=== PATIENT | male | born 1955 | race Caucasian/White ===

== ENCOUNTER 2016-06-21 11:22 | Emergency (ER) | payer MEDICAID ==
[2016-06-21] MEDS ORDERED: Sodium Chloride 0.9% 10 ML Syringe FLUSH PRN (11:47)
[2016-06-21] MEDS ORDERED: HYDROmorphone 1 MG/ML Syringe IVPUSH ONE (11:48)
[2016-06-21] MEDS ORDERED: Ondansetron 4 MG/2 ML SDV IVPUSH ONE (11:48)
[2016-06-21] MEDS ORDERED: LORazepam 2 MG/ML MDV IVPUSH ONE (11:48)
--- NOTE | 2016-06-21 13:18 | EDM.PDOC ---
ED HPI HEADACHE COMPLAINT - General Chief Complaint: Headache Stated Complaint: MIGRAINE & VOMITING Time Seen by Provider: 06/21/16 11:40 Source: Reports: Patient, Family History Limitations: Reports: No limitations - History of Present Illness INITIAL COMMENTS - FREE TEXT/NARRATIVE: 60-year-old male discharged a few hours ago with a headache returns because he slept for a few hours woke up and the headache is still present with nausea and vomiting. No peripheral paresthesias or numbness. Some photophobia. Headache is very similar to some of his bad migraines in the past. It is typical for him to return to the emergency room several times when he gets a bad headache. Location: Reports: frontal Quality: Reports: pounding Severity: Reports: severe Associated Symptoms: Reports: photophobia, other (Nausea and vomiting) - Related Data Allergies/ADRs: Allergies Allergy/AdvReac Type Severity Reaction Status Date / Time iodine Allergy Severe Anaphylactic Verified 04/30/16 19:53 Shock shellfish derived Allergy Severe Anaphylactic Verified 04/30/16 19:53 Shock tomato Allergy Hives Uncoded 10/22/15 20:08 Home Meds: Home Meds Amitriptyline [Elavil] 50 mg PO BEDTIME 03/08/13 [History] traMADol HCl [Rybix ODT] 100 mg PO Q6H PRN 03/08/13 [History] Celecoxib [CeleBREX] 100 mg PO BEDTIME 05/23/14 [History] HYDROmorphone [Dilaudid] 2 mg PO Q6HR PRN 09/13/14 [History] Ondansetron [Zofran ODT] 8 mg PO Q6H PRN 09/13/14 [History] Rizatriptan Benzoate [Rizatriptan] 5 mg PO ASDIRECTED PRN 09/13/14 [History] Carvedilol [Carvedilol] 6.25 mg PO BID 10/16/15 [History] Lisinopril [Lisinopril] 10 mg PO DAILY 10/16/15 [History] Past Medical History HEENT History: Reports: Impaired vision Cardiovascular History: Reports: CAD, Hypertension, [place] Musculoskeletal History: Reports: Back pain, chronic, Fracture, Osteoarthritis, Other (see below) Other Musculoskeletal History: Yoni scoliosis Neurological History: Reports: Migraines Psychiatric History: Reports: Anxiety, Depression Dermatologic History: Reports: Cellulitis - Infectious Disease History Infectious Disease History: Reports: Chicken pox - Past Surgical History HEENT Surgical History: Reports: Oral surgery, Tonsillectomy GI Surgical History: Reports: Colonoscopy, EGD Musculoskeletal Surgical History: Reports: Other (see below) Other Musculoskeletal Surgeries/Procedures:: ulnar nerve transplant left. bone biopsy right index finger Social & Family History - Tobacco Use Smoking Status *Q: Never Smoker Second Hand Smoke Exposure: No - Caffeine Use Caffeine Use: Reports: Tea - Alcohol Use Days Per Week of Alcohol Use: 0 - Recreational Drug Use Recreational Drug Use: No - Living Situation & Occupation Living situation: Reports: , with spouse Occupation: disabled ED ROS GENERAL - Review of Systems Review Of Systems: See Below Constitutional: Denies: fever, chills HEENT: Denies: Throat pain Respiratory: Denies: shortness of breath, cough Cardiovascular: Denies: Chest pain GI/Abdominal: Reports: Nausea, Vomiting Skin: Reports: no symptoms Neurological: Reports: dizziness, headache - Physical Exam Exam: See Below Exam Limited By: No limitations General Appearance: alert, moderate distress Eye Exam: bilateral eye: EOMI, PERRL Respiratory/Chest: no respiratory distress Neuro Exam (Abbreviated): alert, no motor/sensory deficits Psychiatric: anxious Skin Exam: Warm, Dry Course - Vital Signs Last Recorded V/S: Last Vital Signs Temp 96.3 F 06/21/16 11:28 Pulse 66 06/21/16 16:46 Resp 15 06/21/16 15:46 BP 151/89 H 06/21/16 16:46 Pulse Ox 97 06/21/16 15:46 - Orders/Labs/Meds Orders: Active Orders 24 hr Category Date Time Status Saline Lock Insert [OM.PC] Routine Oth 06/21/16 11:47 Ordered Meds: Medications Discontinued Medications Generic Name Dose Route Start Last Admin Trade Name Freq PRN Reason Stop Dose Admin Hydromorphone HCl 1 mg 06/21/16 11:48 06/21/16 12:22 Dilaudid IVPUSH 06/21/16 11:49 1 mg ONETIME ONE Administration Ketorolac Tromethamine 30 mg 06/21/16 17:53 06/21/16 18:02 Toradol IVPUSH 06/21/16 17:54 30 mg ONETIME ONE Administration Lorazepam 1 mg 06/21/16 11:48 06/21/16 12:14 Ativan IVPUSH 06/21/16 11:49 1 mg ONETIME ONE Administration Ondansetron HCl 4 mg 06/21/16 11:48 06/21/16 12:09 Zofran IVPUSH 06/21/16 11:49 4 mg ONETIME ONE Administration Sodium Chloride 10 ml 06/21/16 11:47 06/21/16 18:03 Saline Flush FLUSH 10 ml ASDIRECTED PRN Administration Keep Vein Open - Re-Assessments/Exams Free Text/Narrative Re-Assessment/Exam: 06/21/16 13:18 An IV was restarted, the patient was given 4 mg of Zofran, 1 mg of Dilaudid, and 1 mg of Ativan IV. 06/21/16 18:16 Patient slept soundly for over 2 hours, when he awoke his nausea was gone but still had some mild tension in his head. He was given 30 mg of Toradol IV and discharged with instructions to return if worsening or concerns. Departure - Departure Time of Disposition: 18:34 Disposition: Home, Self-Care 01 Condition: good Clinical Impression: Migraine Instructions: Migraine Headache, [id number] Referrals: Roman Metzger MD [Primary Care Provider] - Forms: ED Department Discharge Care Plan Goals: Resume regular medications, increase activity as tolerated and return if worsening or concerns. - My Orders Last 24 Hours: My Active Orders 06/21/16 11:47 Saline Lock Insert [OM.PC] Routine - Assessment/Plan Last 24 Hours: My Active Orders 06/21/16 11:47 Saline Lock Insert [OM.PC] Routine
[2016-06-21 17:20] VITALS: BP 151/89
[2016-06-21] MEDS ORDERED: Ketorolac 30 MG/ML SDV IVPUSH ONE (17:53)
== END 2016-06-21 18:34 | disposition home or self-care (01) ==
LOC: JP.ED 11:22
DX: G43.909 Migraine, unspecified, not intractable, without status migrainosus (principal); Z91.018 Allergy to other foods; Z79.899 Other long term (current) drug therapy
CPT/HCPCS: 96374; 96375; 99284; J1170; J1885; J2060; J2405; J7050

== ENCOUNTER 2016-09-07 15:54 | Emergency (ER) | payer MEDICAID ==
[2016-09-07] MEDS ORDERED: Bupivacaine 0.5% 30 ML SDV INFILT ONE (17:33)
[2016-09-07 17:47] VITALS: BP 130/89
[2016-09-07] MEDS ORDERED: Bacitracin Oint 1 GM U/D Packet TOP ONE (18:04)
--- NOTE | 2016-09-07 18:08 | EDM.PDOC ---
[id number] 4d DRILL THROUGH L INDEX Time Seen by Provider: 09/07/16 17:55 Source: Reports: Patient History Limitations: Reports: No limitations - History of Present Illness INITIAL COMMENTS - FREE TEXT/NARRATIVE: 60-year-old male was working with wood when he punctured his index finger on the left hand with a small drill bit. It went through the finger at the level of the middle phalange. It's painful but he has normal distal sensation and circulation. No other injury Occurred When: just prior to arrival Severity: mild Pain/Injury Location: Reports: lower extremity, left Associated Symptoms: Reports: denies other symptoms Allergies/ADRs: Allergies iodine Allergy (Severe, Verified 09/07/16 17:34) Anaphylactic Shock shellfish derived Allergy (Severe, Verified 09/07/16 17:34) Anaphylactic Shock tomato Allergy (Uncoded 09/07/16 17:34) Hives Home Medications: Ambulatory Orders Amitriptyline [Elavil] 50 mg PO BEDTIME 03/08/13 [Confirmed 09/07/16] traMADol HCl [Rybix ODT] 100 mg PO Q6H PRN 03/08/13 [Confirmed 09/07/16] Celecoxib [CeleBREX] 100 mg PO BEDTIME 05/23/14 [Confirmed 09/07/16] HYDROmorphone [Dilaudid] 2 mg PO Q6HR PRN 09/13/14 [Confirmed 09/07/16] Ondansetron [Zofran ODT] 8 mg PO Q6H PRN 09/13/14 [Confirmed 09/07/16] Rizatriptan Benzoate [Rizatriptan] 5 mg PO ASDIRECTED PRN 09/13/14 [Confirmed ] Carvedilol [Carvedilol] 6.25 mg PO BID 10/16/15 [Confirmed 09/07/16] Lisinopril [Lisinopril] 10 mg PO DAILY 10/16/15 [Confirmed 09/07/16] Past Medical History HEENT History: Reports: Impaired vision Cardiovascular History: Reports: CAD, Hypertension, [place] Musculoskeletal History: Reports: Back pain, chronic, Fracture, Osteoarthritis, Other (see below) Other Musculoskeletal History: Yoni scoliosis Neurological History: Reports: Migraines Psychiatric History: Reports: Anxiety, Depression Dermatologic History: Reports: Cellulitis - Infectious Disease History Infectious Disease History: Reports: Chicken pox - Past Surgical History HEENT Surgical History: Reports: Oral surgery, Tonsillectomy GI Surgical History: Reports: Colonoscopy, EGD Musculoskeletal Surgical History: Reports: Other (see below) Other Musculoskeletal Surgeries/Procedures:: ulnar nerve transplant left. bone biopsy right index finger Social & Family History - Tobacco Use Smoking Status *Q: Never Smoker Second Hand Smoke Exposure: No - Caffeine Use Caffeine Use: Reports: Tea - Alcohol Use Days Per Week of Alcohol Use: 0 - Recreational Drug Use Recreational Drug Use: No - Living Situation & Occupation Living situation: Reports: , with spouse Occupation: disabled Review of Systems - Review of Systems Review Of Systems: See Below Respiratory: Denies: Shortness of Breath Cardiovascular: Denies: chest pain Neurological: Denies: Headache Psychiatric: Reports: no symptoms Trauma Exam - Physical Exam Exam: See Below Exam Limited By: No limitations General Appearance: Reports: alert, anxious, mild distress (Patient is fairly uncomfortable prior to the digital block) Head: Reports: atraumatic Respiratory Exam: Reports: no respiratory distress Extremities: Reports: other (Exam is otherwise limited to the left hand. There is a puncture wound entering the dorsal aspect of the index finger and an exit wound on the lateral radial aspect of the finger. Distal CMS is intact.) Course - Vital Signs Last Recorded V/S: Last Vital Signs Temp 97.0 F 09/07/16 17:44 Pulse 82 09/07/16 17:44 Resp 14 09/07/16 17:44 BP 130/89 09/07/16 17:44 Pulse Ox - Orders/Labs/Meds Orders: Active Orders 24 hr Category Date Time Status Fingers Second Digit Lt F1 [CR] Stat Exams 09/07/16 17:46 Taken Meds: Medications Discontinued Medications Generic Name Dose Route Start Last Admin Trade Name Freq PRN Reason Stop Dose Admin Bacitracin 1 dose 09/07/16 18:04 09/07/16 18:17 Bacitracin Oint 1 Gm TOP 09/07/16 18:05 1 dose ONETIME ONE Administration Bupivacaine HCl 30 ml 09/07/16 17:33 09/07/16 17:38 Marcaine 0.5% INFILT 09/07/16 17:34 30 ml ONETIME ONE Administration - Re-Assessments/Exams Free Text/Narrative Re-Assessment/Exam: 09/07/16 18:06 After sterilizing the finger with alcohol, A .5% Marcaine block was placed in the finger. Complete anesthesia was obtained. An x-ray obtained of the finger was negative for fracture. The wound was then cleaned thoroughly with Hibiclens and saline, topical bacitracin was applied, a tube gauze and the patient was provided with an aluminum/foam splint. He'll be placed on Augmentin 875 twice a day for the next 10 days while healing Departure - Departure Time of Disposition: 18:18 Disposition: Home, Self-Care 01 Condition: good Clinical Impression: Puncture wound of finger of left hand Qualifiers: Encounter type: initial encounter Qualified Code(s): S61.239A - Puncture wound without foreign body of unspecified finger without damage to nail, initial encounter Instructions: Puncture Wound, [id number] Referrals: Roman Metzger MD [Primary Care Provider] - Forms: ED Department Discharge Care Plan Goals: Keep wound covered and clean while healing. Wear splint for protection and to prevent movement to decrease pain. Take antibiotics twice daily as prescribed for at least 7 days while healing. Return if concerns of infection or not healing satisfactorily. Increase activity with the finger when able. - My Orders Last 24 Hours: My Active Orders 09/07/16 17:46 Fingers Second Digit Lt F1 [CR] Stat - Assessment/Plan Last 24 Hours: My Active Orders 09/07/16 17:46 Fingers Second Digit Lt F1 [CR] Stat
--- NOTE | 2016-09-08 09:51 | CR ---
Soft tissue injury left second digit. No evidence for fracture. No definitive foreign body.
== END 2016-09-07 18:18 | disposition home or self-care (01) ==
LOC: JP.ED 15:54
DX: S61.231A Puncture wound without foreign body of left index finger without damage to nail, initial encounter (principal); I25.2 Old myocardial infarction; I25.10 Atherosclerotic heart disease of native coronary artery without angina pectoris; I10 Essential (primary) hypertension; F41.9 Anxiety disorder, unspecified; F32.9 Major depressive disorder, single episode, unspecified; Z98.890 Other specified postprocedural states; Z79.899 Other long term (current) drug therapy; Z91.013 Allergy to seafood; Z91.018 Allergy to other foods; Z88.8 Allergy status to other drugs, medicaments and biological substances; W45.8XXA Other foreign body or object entering through skin, initial encounter
CPT/HCPCS: 64450; 73140; 99283; A4217

== ENCOUNTER 2017-05-12 10:41 | Emergency (ER) | payer MEDICAID, OTHER ==
[2017-05-12] MEDS ORDERED: Acetaminophen/oxyCODONE 325-5 MG Tab ONE (11:29)
[2017-05-12] MEDS ORDERED: Acetaminophen/oxyCODONE 325-5 MG Tab PO ONE (11:45)
[2017-05-12 16:58] VITALS: BP 150/93
--- NOTE | 2017-05-13 09:04 | CR ---
Hand Comp Min 3V Rt HISTORY: pain FINDINGS: No acute fracture or dislocation is identified. Bony architecture is preserved. Early degenerative changes came seen at the DIP and PIP joints. Soft tissues are unremarkable. IMPRESSION: No acute right hand abnormality identified. Mild osteoarthritis.
== END 2017-05-12 16:59 | disposition home or self-care (01) ==
LOC: JP.ED 10:41
DX: S69.91XA Unspecified injury of right wrist, hand and finger(s), initial encounter (principal); Z91.018 Allergy to other foods; Z91.013 Allergy to seafood; Z88.8 Allergy status to other drugs, medicaments and biological substances; Z79.899 Other long term (current) drug therapy; X50.9XXA Other and unspecified overexertion or strenuous movements or postures, initial encounter; Y92.096 Garden or yard of other non-institutional residence as the place of occurrence of the external cause; Y99.0 Civilian activity done for income or pay
CPT/HCPCS: 73130; 99284; A9270; 99283

== ENCOUNTER 2017-12-10 17:06 | Emergency (ER) | payer SELFPAY ==
[2017-12-10 17:12] VITALS: BP 172/73
[2017-12-10] MEDS ORDERED: Ondansetron 4 MG Tab.DIS PO ONE (17:34)
[2017-12-10] MEDS ORDERED: HYDROmorphone 1 MG/ML Syringe IM ONE (17:35)
--- NOTE | 2017-12-10 17:44 | EDM.PDOC ---
<Zeynep Tan N - Last Filed: 12/10/17 17:50> ED HPI GENERAL MEDICAL PROBLEM - General Chief Complaint: Head Injury Stated Complaint: BUMP ON HEAD, SCRAPES ON ARMS AND LEGS Time Seen by Provider: 12/10/17 17:30 - History of Present Illness INITIAL COMMENTS - FREE TEXT/NARRATIVE: Kenan is a 61-year-old male with a known history of migraines who presents to the ER with complaints of headache and nausea following a fall at work. States he lost his balance and fell backwards, hitting his head on the pavement. Reports that he went home and attempted to rest, but felt that the symptoms worsened. Reports that he scraped both legs, but denies other injury. Abrasions noted on the posterior proximal aspect of both legs. Reports that the headache feels like a typical migraine, although a bit sharper. Denies loss of consciousness. Reports a history of multiple concussions in the past. Posterior Head Pain Score (Numeric/FACES): 9 - Related Data Allergies Allergy/AdvReac Type Severity Reaction Status Date / Time iodine Allergy Severe Anaphylactic Verified 12/10/17 17:13 Shock shellfish derived Allergy Severe Anaphylactic Verified 12/10/17 17:13 Shock gabapentin Allergy Cannot Verified 12/10/17 17:13 Remember tomato Allergy Hives Uncoded 12/10/17 17:13 Home Meds: Home Meds Amitriptyline [Elavil] 50 mg PO BEDTIME 03/08/13 [History] traMADol HCl [Rybix ODT] 100 mg PO Q6H PRN 03/08/13 [History] Celecoxib [CeleBREX] 100 mg PO BEDTIME 05/23/14 [History] HYDROmorphone [Dilaudid] 2 mg PO Q6HR PRN 09/13/14 [History] Ondansetron [Zofran ODT] 8 mg PO Q6H PRN 09/13/14 [History] Rizatriptan Benzoate [Rizatriptan] 5 mg PO ASDIRECTED PRN 09/13/14 [History] Carvedilol 6.25 mg PO BID 10/16/15 [History] Lisinopril 10 mg PO DAILY 10/16/15 [History] Past Medical History HEENT History: Reports: Impaired Vision Cardiovascular History: Reports: CAD, Hypertension, [place] Genitourinary History: Reports: Renal Calculus Musculoskeletal History: Reports: Back Pain, Chronic, Fracture, Osteoarthritis, Other (See Below) Other Musculoskeletal History: right thumb sprain Neurological History: Reports: Migraines Psychiatric History: Reports: Anxiety, Depression Dermatologic History: Reports: Cellulitis - Infectious Disease History Infectious Disease History: Reports: Chicken Pox - Past Surgical History HEENT Surgical History: Reports: Oral Surgery, Tonsillectomy GI Surgical History: Reports: Colonoscopy, EGD Social & Family History - Tobacco Use Smoking Status *Q: Never Smoker - Caffeine Use Caffeine Use: Reports: None - Recreational Drug Use Recreational Drug Use: No - Living Situation & Occupation Living situation: Reports: , with Spouse Occupation: Disabled ED ROS GENERAL - Review of Systems Constitutional: Reports: No Symptoms HEENT: Reports: Other (Photophobia). Denies: Vision Change Respiratory: Reports: No Symptoms Cardiovascular: Reports: No Symptoms Endocrine: Reports: No Symptoms, Fatigue GI/Abdominal: Reports: Nausea Musculoskeletal: Reports: Neck Pain Skin: Reports: No Symptoms Neurological: Reports: Dizziness, Headache. Denies: Confusion Psychiatric: Reports: No Symptoms Hematologic/Lymphatic: Reports: No Symptoms Immunologic: Reports: No Symptoms ED EXAM, HEAD INJURY - Physical Exam Exam: See Below Exam Limited By: No Limitations General Appearance: Alert, Mild Distress Head: Scalp Swelling (Posterior aspect of head) Nexus Criteria: No: Altered Level of Consciousness, Painful Distraction Injuries Eyes: Bilateral Eye: EOMI, Normal Inspection, PERRL Ears: Normal External Exam, Normal Canal, Hearing Grossly Normal, Normal TMs. No: TM Blood Nose: Normal Inspection, No Blood Throat/Mouth: Normal Inspection, Normal Lips, Normal Gums, Normal Oropharynx, No Airway Compromise Neck: Stiff Neck, Tenderness Respiratory: No Respiratory Distress, Lungs Clear, Normal Breath Sounds Cardiovascular: Regular Rate, Rhythm, No Gallop, No JVD, No Murmur, No Rub GI/Abdominal Exam: Soft, Non-Tender, No Distention, No Abnormal Bruit, No Mass Back Exam: Normal Inspection Extremities: Other (Abrasions on posterior proximal aspects of both legs.) Neurologic: No Motor/Sensory Deficits, Alert, Oriented x 3 Skin: Normal Color, Warm/Dry - Dionne Coma Score Best Eye Response (Dionne): (3) Open to Voice Best Verbal Response (Dionne): (5) Oriented Best Motor Response (Carver): (6) Obeys Commands Course - Vital Signs Last Recorded V/S: Last Vital Signs Temp 95.7 F 12/10/17 17:11 Pulse 77 12/10/17 17:11 Resp 18 12/10/17 17:11 BP 172/73 H 12/10/17 17:11 Pulse Ox 98 12/10/17 17:11 - Orders/Labs/Meds Orders: Active Orders 24 hr Category Date Time Status Cervical Spine wo Cont [CT] Stat Exams 12/10/17 17:35 Taken Head wo Cont [CT] Stat Exams 12/10/17 17:35 Taken Meds: Medications Discontinued Medications Generic Name Dose Route Start Last Admin Trade Name Freq PRN Reason Stop Dose Admin Hydromorphone HCl 1 mg 12/10/17 17:35 12/10/17 17:51 Dilaudid IM 12/10/17 17:36 1 mg ONETIME ONE Administration Ketorolac Tromethamine 60 mg 12/10/17 18:32 12/10/17 18:39 Toradol IM 12/10/17 18:33 60 mg ONETIME ONE Administration Ondansetron HCl 4 mg 12/10/17 17:34 12/10/17 17:51 Zofran Odt PO 12/10/17 17:35 4 mg ONETIME ONE Administration Departure - Departure Disposition: Home, Self-Care 01 Clinical Impression: Head injury Qualifiers: Encounter type: initial encounter Qualified Code(s): S09.90XA - Unspecified injury of head, initial encounter Migraine Qualifiers: Migraine type: unspecified Status migrainosus presence: without status migrainosus Intractability: not intractable Qualified Code(s): G43.909 - Migraine, unspecified, not intractable, without status migrainosus - Discharge Information Instructions: Head Injury, Adult, [id number] Referrals: Roman Metzger MD [Primary Care Provider] - Forms: ED Department Discharge Care Plan Goals: Resident/PA IDX Provider #_ * Pee Mcneal MD was personally available for consultation in the ED. I have reviewed the chart and agree with the documentation as recorded by the Resident, including the assessment, treatment plan and disposition. * Pee Mcneal MD personally saw and examined the patient. I have reviewed and agree with the Resident's findings. Rest tonight, continue your medications you have available and recheck in the next 1-2 dayss if not improving satisfactorily. <Pee Gracia - Last Filed: 12/10/17 23:07> ED ROS GENERAL - Review of Systems Review Of Systems: See Below Course - Re-Assessments/Exams Free Text/Narrative Re-Assessment/Exam: 12/10/17 18:32 Care turned over to myself from Officer. Pending CT results of the head and neck. These were negative. His headache persisted so he was given 60 mg of Toradol and discharged to take his usual medications and can return if worsening or concerns. Departure - Departure Time of Disposition: 18:54 Condition: Fair
[2017-12-10] MEDS ORDERED: Ketorolac 60 MG/2 ML SDV IM ONE (18:32)
== END 2017-12-10 18:55 | disposition home or self-care (01) ==
LOC: JP.ED 17:06
DX: S09.90XA Unspecified injury of head, initial encounter (principal); S80.812A Abrasion, left lower leg, initial encounter; S80.811A Abrasion, right lower leg, initial encounter; G43.909 Migraine, unspecified, not intractable, without status migrainosus; I10 Essential (primary) hypertension; I25.2 Old myocardial infarction; Z79.899 Other long term (current) drug therapy; Z91.013 Allergy to seafood; Z91.018 Allergy to other foods; Z91.09 Other allergy status, other than to drugs and biological substances; Z88.8 Allergy status to other drugs, medicaments and biological substances; W19.XXXA Unspecified fall, initial encounter; Y99.0 Civilian activity done for income or pay
CPT/HCPCS: 70450; 72125; 96372; 99284; A9270; J1170; J1885

== ENCOUNTER 2018-08-28 15:31 | Emergency (ER) | payer MEDICAID ==
[2018-08-28] MEDS ORDERED: diphenhydrAMINE 50 MG/ML SDV IVPUSH ONE (15:44)
[2018-08-28] MEDS ORDERED: Prochlorperazine 10 MG/2 ML SDV IVPUSH ONE ×2 (15:44→17:01)
[2018-08-28] MEDS ORDERED: Ketorolac 30 MG/ML SDV IVPUSH ONE (15:45)
[2018-08-28] MEDS ORDERED: Lactated Ringers 1,000 ML IV SCH (15:45)
--- NOTE | 2018-08-28 15:50 | EDM.PDOC ---
ED HPI GENERAL MEDICAL PROBLEM - General Chief Complaint: Headache Stated Complaint: chest pain going to left arm/headache Time Seen by Provider: 08/28/18 15:40 Source of Information: Reports: Patient, Old Records History Limitations: Reports: No Limitations - History of Present Illness INITIAL COMMENTS - FREE TEXT/NARRATIVE: 62 yo male here with a primary CALIX and some total body tingling/chest tightness. Has a hx of migraine and this feels a lot like that. No vomiting or fever. Onset: Today Onset Date: 08/28/18 Onset Time: 13:00 Duration: Minutes:, Constant Location: Reports: Head, Chest, Generalized Quality: Reports: Ache (head) Severity: Severe Improves with: Reports: None Worsens with: Reports: None Context: Reports: Other (see HPI) Associated Symptoms: Reports: Chest Pain, Headaches. 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: Reports: Other (see below) (none) - Related Data Allergies Allergy/AdvReac Type Severity Reaction Status Date / Time iodine Allergy Severe Anaphylactic Verified 08/28/18 15:45 Shock shellfish derived Allergy Severe Anaphylactic Verified 08/28/18 15:45 Shock gabapentin Allergy Cannot Verified 08/28/18 15:45 Remember IV contrast Allergy Severe Anaphylactic Uncoded 08/28/18 15:45 Shock tomato Allergy Hives Uncoded 08/28/18 15:45 Home Meds: Home Meds Amitriptyline [Elavil] 50 mg PO BEDTIME 03/08/13 [History] traMADol HCl [Rybix ODT] 100 mg PO BEDTIME PRN 03/08/13 [History] Celecoxib [CeleBREX] 100 mg PO BEDTIME 05/23/14 [History] Ondansetron [Zofran ODT] 8 mg PO Q6H PRN 09/13/14 [History] Rizatriptan Benzoate [Rizatriptan] 5 mg PO ASDIRECTED PRN 09/13/14 [History] Carvedilol 6.25 mg PO BID 10/16/15 [History] Lisinopril 10 mg PO DAILY 10/16/15 [History] Cilostazol 100 mg PO BID 08/28/18 [History] Past Medical History HEENT History: Reports: Impaired Vision Cardiovascular History: Reports: CAD, Hypertension, [place] Gastrointestinal History: Reports: GI Bleed Genitourinary History: Reports: Renal Calculus Musculoskeletal History: Reports: Back Pain, Chronic, Fracture, Osteoarthritis, Other (See Below) Other Musculoskeletal History: right thumb sprain Neurological History: Reports: Migraines Psychiatric History: Reports: Anxiety, Depression Dermatologic History: Reports: Cellulitis - Infectious Disease History Infectious Disease History: Reports: Chicken Pox - Past Surgical History HEENT Surgical History: Reports: Oral Surgery, Tonsillectomy GI Surgical History: Reports: Colonoscopy, EGD Social & Family History - Family History Family Medical History: Noncontributory - Caffeine Use Caffeine Use: Reports: Tea - Living Situation & Occupation Living situation: Reports: (lives with and two children in [facility]), with Spouse Occupation: Disabled ED ROS GENERAL - Review of Systems Review Of Systems: See Below Constitutional: Reports: No Symptoms HEENT: Reports: No Symptoms Respiratory: Reports: No Symptoms Cardiovascular: Reports: No Symptoms Endocrine: Reports: No Symptoms GI/Abdominal: Reports: No Symptoms : Reports: No Symptoms Musculoskeletal: Reports: No Symptoms Skin: Reports: No Symptoms Neurological: Reports: Headache, Tingling (total body) Psychiatric: Reports: No Symptoms ED EXAM, GENERAL - Physical Exam Exam: See Below Exam Limited By: No Limitations General Appearance: Alert, WD/WN, Mild Distress Eye Exam: Bilateral Eye: Normal Inspection Ears: Normal External Exam, Normal Canal, Hearing Grossly Normal Ear Exam: Bilateral Ear: Auricle Normal, Canal Normal Nose: Normal Inspection, Normal Mucosa, No Blood Throat/Mouth: Normal Inspection, Normal Lips, Normal Oropharynx, Normal Voice, No Airway Compromise Head: Atraumatic, Normocephalic Neck: Normal Inspection, Supple, Non-Tender Respiratory/Chest: No Respiratory Distress, Lungs Clear, Normal Breath Sounds, No Accessory Muscle Use Cardiovascular: Regular Rate, Rhythm, No Edema GI/Abdominal: Normal Bowel Sounds, Soft, Non-Tender, No Distention Back Exam: Normal Inspection Extremities: Normal Inspection, Normal Range of Motion, Non-Tender Neurological: Alert, Oriented, CN II-XII Intact, Normal Cognition, No Motor/ Sensory Deficits Psychiatric: Normal Affect, Normal Mood Skin Exam: Warm, Dry, Intact, Normal Color, No Rash Course - Vital Signs Text/Narrative:: Feeling a lot better after 2nd 5 mg dose of IV Compazine and 1 mg of IV Dilaudid. Last Recorded V/S: Last Vital Signs Temp -14.2 C L 08/28/18 15:35 Pulse 74 08/28/18 16:58 Resp 10 L 08/28/18 16:58 BP 125/74 08/28/18 16:58 Pulse Ox 99 08/28/18 16:58 - Orders/Labs/Meds Orders: Active Orders 24 hr Category Date Time Status Cardiac Monitoring [RC] .As Directed Care 08/28/18 15:32 Active EKG Documentation Completion [RC] ASDIRECTED Care 08/28/18 15:32 Active Lactated Ringers [Ringers, Lactated] 1,000 ml Med 08/28/18 15:45 Active IV ASDIRECTED EKG 12 Lead [EK] Routine Ther 08/28/18 15:32 Ordered Medication Orders Lactated Ringer's (Ringers, Lactated) 1,000 mls @ 500 mls/hr IV ASDIRECTED MILTON Last Admin: 08/28/18 15:53 Dose: 500 mls/hr Meds: Medications Generic Name Dose Route Start Last Admin Trade Name Freq PRN Reason Stop Dose Admin Lactated Ringer's 1,000 mls @ 500 mls/hr 08/28/18 15:45 08/28/18 15:53 Ringers, Lactated IV 500 mls/hr ASDIRECTED MILTON Administration Discontinued Medications Generic Name Dose Route Start Last Admin Trade Name Freq PRN Reason Stop Dose Admin Diphenhydramine HCl 25 mg 08/28/18 15:44 08/28/18 15:57 Benadryl IVPUSH 08/28/18 15:45 25 mg ONETIME ONE Administration Hydromorphone HCl 1 mg 08/28/18 17:01 08/28/18 17:07 Dilaudid IVPUSH 08/28/18 17:02 1 mg ONETIME ONE Administration Ketorolac Tromethamine 30 mg 08/28/18 15:45 08/28/18 15:54 Toradol IVPUSH 08/28/18 15:46 30 mg ONETIME ONE Administration Prochlorperazine Edisylate 10 mg 08/28/18 15:44 08/28/18 15:55 Compazine IVPUSH 08/28/18 15:45 10 mg ONETIME ONE Administration Prochlorperazine Edisylate 5 mg 08/28/18 17:01 08/28/18 17:08 Compazine IVPUSH 08/28/18 17:02 5 mg ONETIME ONE Administration - Radiology Interpretation Free Text/Narrative:: Head CT scan-neg CT Results Date: 08/28/18 Departure - Departure Time of Disposition: 17:55 Disposition: Home, Self-Care 01 Condition: Fair Clinical Impression: Migraine Qualifiers: Migraine type: unspecified Status migrainosus presence: without status migrainosus Intractability: not intractable Qualified Code(s): G43.909 - Migraine, unspecified, not intractable, without status migrainosus Instructions: Migraine Headache, [id number] Referrals: Roman Metzger MD [Primary Care Provider] - Forms: ED Department Discharge Additional Instructions: Home to sleep. No driving today. See your doctor for follow up. Return if worse. - My Orders Last 24 Hours: My Active Orders 08/28/18 15:32 Cardiac Monitoring [RC] .As Directed EKG Documentation Completion [RC] ASDIRECTED EKG 12 Lead [EK] Routine 08/28/18 15:45 Lactated Ringers [Ringers, Lactated] 1,000 ml IV ASDIRECTED - Assessment/Plan Last 24 Hours: My Active Orders 08/28/18 15:32 Cardiac Monitoring [RC] .As Directed EKG Documentation Completion [RC] ASDIRECTED EKG 12 Lead [EK] Routine 08/28/18 15:45 Lactated Ringers [Ringers, Lactated] 1,000 ml IV ASDIRECTED
[2018-08-28 16:58] VITALS: BP 125/74
[2018-08-28] MEDS ORDERED: HYDROmorphone 1 MG/ML Syringe IVPUSH ONE (17:01)
--- NOTE | 2018-08-28 17:11 | CRLCT ---
INDICATION: 62 year-old male. Severe headache since this morning. TECHNIQUE: Noncontrast head CT. COMPARISON: December 10, 2017. FINDINGS: There is no evidence for acute intracranial hemorrhage or hydrocephalus and no mass effect or shift of midline structures. Mild cerebral and cerebellar atrophy. No acute ischemia change or infarction. Preserved norton white matter differentiation. The calvarium and skull base are negative for fractures. The included paranasal sinuses and mastoid air cells are clear. IMPRESSION: Stable and negative noncontrast head CT. Please note that all CT scans at this facility use dose modulation, iterative reconstruction, and/or weight-based dosing when appropriate to reduce radiation dose to as low as reasonably achievable. Dictated by Donnie Urbina MD @ Aug 28 2018 5:09PM Signed by Dr. Donnie Urbina @ Aug 28 2018 5:10PM
== END 2018-08-28 18:03 | disposition home or self-care (01) ==
LOC: JP.ED 15:31
DX: G43.909 Migraine, unspecified, not intractable, without status migrainosus (principal); I10 Essential (primary) hypertension; I25.2 Old myocardial infarction; Z91.048 Other nonmedicinal substance allergy status; Z91.013 Allergy to seafood; Z91.018 Allergy to other foods; Z79.899 Other long term (current) drug therapy
CPT/HCPCS: 70450; 93005; 96361; 96374; 96375; 96376; 99285; J0780; J1170; J1200; J1885; J7120

== ENCOUNTER 2018-11-12 18:03 | Emergency (ER) | payer MEDICAID ==
[2018-11-12 19:18] VITALS: BP 131/73
--- NOTE | 2018-11-12 20:07 | EDM.PDOC ---
ED HPI GENERAL MEDICAL PROBLEM - General Chief Complaint: Lower Extremity Injury/Pain Stated Complaint: FALLS Time Seen by Provider: 11/12/18 19:17 Source of Information: Reports: Patient History Limitations: Reports: No Limitations - History of Present Illness INITIAL COMMENTS - FREE TEXT/NARRATIVE: 62 yo male presents to ER after 2 falls today. This morning he was walking down steps and missed the last steps falling onto both knees. He was able to walk after fall. This evening he was stepping out of the shower and "the knee just gave way" causing him to fall. he was unable to bear weight. he does have bruising to his lateral thigh. generally healthy Left Knee Pain Score (Numeric/FACES): 8 - Related Data Allergies Allergy/AdvReac Type Severity Reaction Status Date / Time iodine Allergy Severe Anaphylactic Verified 11/12/18 19:24 Shock shellfish derived Allergy Severe Anaphylactic Verified 11/12/18 19:24 Shock gabapentin Allergy Cannot Verified 11/12/18 19:24 Remember IV contrast Allergy Severe Anaphylactic Uncoded 11/12/18 19:24 Shock tomato Allergy Hives Uncoded 11/12/18 19:24 Home Meds: Home Meds Amitriptyline [Elavil] 50 mg PO BEDTIME 03/08/13 [History] traMADol HCl [Rybix ODT] 100 mg PO BEDTIME PRN 03/08/13 [History] Ondansetron [Zofran ODT] 8 mg PO Q6H PRN 09/13/14 [History] Rizatriptan Benzoate [Rizatriptan] 5 mg PO ASDIRECTED PRN 09/13/14 [History] Carvedilol 6.25 mg PO BID 10/16/15 [History] Lisinopril 10 mg PO DAILY 10/16/15 [History] Pregabalin [Lyrica] 1 tab PO BID 11/12/18 [History] amLODIPine Besylate [Amlodipine Besylate] 1 tab PO DAILY 11/12/18 [History] Past Medical History HEENT History: Reports: Impaired Vision Cardiovascular History: Reports: CAD, Hypertension, [place] Gastrointestinal History: Reports: GI Bleed Genitourinary History: Reports: Renal Calculus Musculoskeletal History: Reports: Back Pain, Chronic, Fracture, Osteoarthritis, Other (See Below) Other Musculoskeletal History: right thumb sprain Neurological History: Reports: Migraines Psychiatric History: Reports: Anxiety, Depression, PTSD Dermatologic History: Reports: Cellulitis - Infectious Disease History Infectious Disease History: Reports: Chicken Pox, Measles, Mumps - Past Surgical History HEENT Surgical History: Reports: Oral Surgery, Tonsillectomy GI Surgical History: Reports: Colonoscopy, EGD Social & Family History - Family History Family Medical History: Noncontributory - Tobacco Use Smoking Status *Q: Never Smoker Second Hand Smoke Exposure: No - Caffeine Use Caffeine Use: Reports: Soda, Tea - Recreational Drug Use Recreational Drug Use: No - Living Situation & Occupation Living situation: Reports: (lives with and two children in [facility] with Spouse Occupation: Disabled Review of Systems - Review of Systems Review Of Systems: See Below Respiratory: Denies: Shortness of Breath Cardiovascular: Denies: Chest Pain Musculoskeletal: Reports: Joint Pain, Muscle Pain, Muscle Stiffness ED EXAM, GENERAL - Physical Exam Exam: See Below Exam Limited By: No Limitations General Appearance: Alert, WD/WN, No Apparent Distress Respiratory/Chest: No Respiratory Distress Cardiovascular: Normal Peripheral Pulses, Regular Rate, Rhythm Extremities: Other (medial left knee joint line pain. mild edema, no ecchymosis or erythema) Course - Vital Signs Last Recorded V/S: Last Vital Signs Temp 36.6 C 11/12/18 19:33 Pulse 71 11/12/18 19:33 Resp 14 11/12/18 19:33 BP 131/73 11/12/18 19:33 Pulse Ox 94 L 11/12/18 19:33 - Orders/Labs/Meds Orders: Active Orders 24 hr Category Date Time Status Knee 3V Lt [CR] Stat Exams 11/12/18 19:55 Taken - Re-Assessments/Exams Free Text/Narrative Re-Assessment/Exam: 11/12/18 20:25 preliminary read of x-ray showed no acute injury will await radiology read. wrapped with Rolo and he has crutches at home for weight bearing as tolerated. follow-up with orthopedic mid week Departure - Departure Time of Disposition: 20:26 Disposition: Home, Self-Care 01 Condition: Good Clinical Impression: Left knee injury Qualifiers: Encounter type: initial encounter Qualified Code(s): S89.92XA - Unspecified injury of left lower leg, initial encounter - Discharge Information *PRESCRIPTION DRUG MONITORING PROGRAM REVIEWED*: Not Applicable *COPY OF PRESCRIPTION DRUG MONITORING REPORT IN PATIENT EVA: Not Applicable Instructions: Knee Sprain, Adult, [id number] Referrals: Roman Metzger MD [Primary Care Provider] - Forms: ED Department Discharge Additional Instructions: ice as much as possible over the next 3 days utilize your tramadol as needed for pain weight bearing as tolerated follow-up with orthopedics mid week next week - My Orders Last 24 Hours: My Active Orders 11/12/18 19:55 Knee 3V Lt [CR] Stat - Assessment/Plan Last 24 Hours: My Active Orders 11/12/18 19:55 Knee 3V Lt [CR] Stat
--- NOTE | 2018-11-12 20:48 | CRLCR ---
INDICATION: Pain after injury. TECHNIQUE: Three views. IMPRESSION: No definite acute fracture. Tiny density over the lateral spine on AP view not correlated on the other 2 views. This could be intra-articular. No joint effusion is appreciated however. Anatomic alignment. Minimal grade 1 osteoarthritic degenerative narrowing medial compartment. Dictated by Praveen Varghese MD @ Nov 12 2018 8:45PM Signed by Dr. Praveen Varghese @ Nov 12 2018 8:46PM
== END 2018-11-12 20:39 | disposition home or self-care (01) ==
LOC: JP.ED 18:03
DX: S89.92XA Unspecified injury of left lower leg, initial encounter (principal); I25.10 Atherosclerotic heart disease of native coronary artery without angina pectoris; I10 Essential (primary) hypertension; I25.2 Old myocardial infarction; F41.9 Anxiety disorder, unspecified; F32.9 Major depressive disorder, single episode, unspecified; W10.9XXA Fall (on) (from) unspecified stairs and steps, initial encounter; Z88.8 Allergy status to other drugs, medicaments and biological substances; Z91.018 Allergy to other foods; Z79.899 Other long term (current) drug therapy
CPT/HCPCS: 73562-LT; 99283-25

== ENCOUNTER 2018-12-03 14:45 | Emergency (ER) | payer MEDICAID ==
[2018-12-03] MEDS ORDERED: diphenhydrAMINE 50 MG/ML SDV IVPUSH ONE (15:46)
[2018-12-03] MEDS ORDERED: methylPREDNISolone Sodium Succinate 125 MG/2 ML SDV IVPUSH ONE (15:46)
[2018-12-03] MEDS ORDERED: EPINEPHrine 1 MG/ML SDV IM ONE ×2 (15:46→15:48)
--- NOTE | 2018-12-03 15:49 | EDM.PDOC ---
ED HPI GENERAL MEDICAL PROBLEM - General Chief Complaint: Allergic Reaction Stated Complaint: REACTION TO BEE STING Time Seen by Provider: 12/03/18 14:45 Source of Information: Reports: Patient History Limitations: Reports: Altered Mental Status, Respiratory Distress - History of Present Illness INITIAL COMMENTS - FREE TEXT/NARRATIVE: Patient was dropped off in the parking ramp by private vehicle after being exposed to numerous wasps resulting in numerous stings on bilateral lower legs neck, trunk and arms. 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 Patient may have passed out while in route to the ER. At time of presentation patient is slumped over in the wheelchair. He is transferred to the bed by myself and nursing staff. Patient was immediately given anaphylactic medications for bee stings including epinephrine IM 2, Benadryl 50 mg IV and Solu-Medrol. EKG was obtained and further assessment once stabilized. - Related Data Allergies Allergy/AdvReac Type Severity Reaction Status Date / Time iodine Allergy Severe Anaphylactic Verified 11/12/18 19:24 Shock shellfish derived Allergy Severe Anaphylactic Verified 11/12/18 19:24 Shock gabapentin Allergy Cannot Verified 11/12/18 19:24 Remember IV contrast Allergy Severe Anaphylactic Uncoded 11/12/18 19:24 Shock tomato Allergy Hives Uncoded 11/12/18 19:24 Home Meds: Home Meds Amitriptyline [Elavil] 50 mg PO BEDTIME 03/08/13 [History] traMADol HCl [Rybix ODT] 100 mg PO BEDTIME PRN 03/08/13 [History] Ondansetron [Zofran ODT] 8 mg PO Q6H PRN 09/13/14 [History] Rizatriptan Benzoate [Rizatriptan] 5 mg PO ASDIRECTED PRN 09/13/14 [History] Carvedilol 6.25 mg PO BID 10/16/15 [History] Lisinopril 10 mg PO DAILY 10/16/15 [History] Pregabalin [Lyrica] 1 tab PO BID 11/12/18 [History] amLODIPine Besylate [Amlodipine Besylate] 1 tab PO DAILY 11/12/18 [History] diazePAM [Valium] 10 mg PO ONETIME #2 tab 06/27/19 [Rx] Cimetidine [Tagamet Hb] 200 mg PO TIDAC 10 Days #30 tablet 12/03/18 [Rx] EPINEPHrine [Epinephrine] 0.3 mg IJ ONETIME PRN #2 auto.injct 12/03/18 [Rx] Loratadine [Claritin] 10 mg PO BID 10 Days #20 tablet 12/03/18 [Rx] predniSONE [Prednisone] 20 mg PO BID 5 Days #10 tablet 12/03/18 [Rx] Past Medical History HEENT History: Reports: Impaired Vision Cardiovascular History: Reports: CAD, Hypertension, [place] Gastrointestinal History: Reports: GI Bleed Genitourinary History: Reports: Renal Calculus Musculoskeletal History: Reports: Back Pain, Chronic, Osteoarthritis, Other ( See Below) Other Musculoskeletal History: L knee injury 11/12/18 Neurological History: Reports: Migraines Psychiatric History: Reports: Anxiety, Depression, PTSD Dermatologic History: Reports: Cellulitis - Infectious Disease History Infectious Disease History: Reports: Chicken Pox, Measles, Mumps - Past Surgical History HEENT Surgical History: Reports: Oral Surgery, Tonsillectomy GI Surgical History: Reports: Colonoscopy, EGD Social & Family History - Family History Family Medical History: Noncontributory - Tobacco Use Smoking Status *Q: Unknown Ever Smoked - Caffeine Use Caffeine Use: Reports: Tea - Living Situation & Occupation Living situation: Reports: (lives with and two children in [place], [place] with Spouse Occupation: Disabled ED ROS ALLERGIC REACTION - Review of Systems Review Of Systems: Unable To Obtain ED EXAM GENERAL NO PERIP PULSE - Physical Exam Exam: See Below Text/Narrative:: Initial evaluation patient is unresponsive, breathing, lip and throat swelling noted. Anaphylaxis initial treatment done. Patient had improvement after two doses of epi 0.5 mg IM and within 15 minutes of presentation. Repeat examination completed 1hr after presentation as follows. Exam Limited By: Altered Mental Status General Appearance: Alert, Anxious, Obtunded (improved 15 minutes after presentation), Mild Distress Eye Exam: Bilateral Eye: EOMI, PERRL Ears: Normal External Exam, Normal Canal, Hearing Grossly Normal, Normal TMs Nose: Normal Inspection, Normal Mucosa, No Blood, Nasal Swelling Throat/Mouth: Normal Oropharynx (inflammation ), Inflammation (improved ). No: Normal Inspection, Normal Lips Head: Normocephalic Neck: Normal Inspection, Supple Respiratory/Chest: Lungs Clear, Normal Breath Sounds (initial pulmonary exam poor air movement ), Chest Non-Tender, Respiratory Distress (resolved after EPI x 2 ) Cardiovascular: Regular Rate, Rhythm GI/Abdominal: Normal Bowel Sounds, Soft, Non-Tender Back Exam: Normal Inspection, Full Range of Motion, NT Extremities: Normal Inspection, Normal Range of Motion, Non-Tender, Normal Capillary Refill, No Pedal Edema Neurological: Alert, Oriented, CN II-XII Intact, Normal Cognition, Normal Gait, Normal Reflexes, No Motor/Sensory Deficits Psychiatric: Normal Affect, Normal Mood Skin Exam: Warm, Dry, Normal Color, No Rash, Other (Numerous stings on bilateral arms, legs, underchin and trunk ) Lymphatic: No Adenopathy EKG INTERPRETATION EKG Date: 12/03/18 Time: 15:57 Rhythm: NSR Rate (Beats/Min): 95 [place]el: LAD-Left Macdoel Deviation P-Wave: Variable (signficant baseline artifact) QRS: Other ST-T: Other QT: Normal (Nonspecific changes noted) EKG Interpretation Comments: Numerous PVCs with significant baseline artifact. Course - Vital Signs Last Recorded V/S: Last Vital Signs Temp 37.3 C 12/03/18 14:52 Pulse 86 12/03/18 16:54 Resp 17 12/03/18 16:54 BP 130/79 12/03/18 16:54 Pulse Ox 91 L 12/03/18 16:54 - Orders/Labs/Meds Orders: Active Orders 24 hr Category Date Time Status Cardiac Monitoring [RC] .As Directed Care 12/03/18 15:50 Active EKG Documentation Completion [RC] ASDIRECTED Care 12/03/18 15:47 Active Sodium Chloride 0.9% [Normal Saline] 1,000 ml Med 12/03/18 16:00 Active IV ASDIRECTED EKG 12 Lead [EK] Routine Ther 12/03/18 15:46 Ordered Medication Orders Sodium Chloride (Normal Saline) 1,000 mls @ 500 mls/hr IV ASDIRECTED MILTON Last Admin: 12/03/18 15:55 Dose: 500 mls/hr Meds: Medications Generic Name Dose Route Start Last Admin Trade Name Freq PRN Reason Stop Dose Admin Sodium Chloride 1,000 mls @ 500 mls/hr 12/03/18 16:00 12/03/18 15:55 Normal Saline IV 500 mls/hr ASDIRECTED MILTON Administration Discontinued Medications Generic Name Dose Route Start Last Admin Trade Name Torin PRN Reason Stop Dose Admin Diphenhydramine HCl 50 mg 12/03/18 15:46 12/03/18 14:45 Benadryl IVPUSH 12/03/18 15:47 50 mg ONETIME ONE Administration Epinephrine HCl 0.5 mg 12/03/18 15:46 12/03/18 14:45 Adrenalin IM 12/03/18 15:47 0.5 mg ONETIME ONE Administration Epinephrine HCl 0.5 mg 12/03/18 15:48 12/03/18 14:45 Adrenalin IM 12/03/18 15:49 0.5 mg ONETIME ONE Administration Famotidine 20 mg 12/03/18 15:53 12/03/18 15:58 Pepcid IVPUSH 12/03/18 15:54 20 mg ONETIME ONE Administration Methylprednisolone Sodium Succinate 125 mg 12/03/18 15:46 12/03/18 14:46 Solu-Medrol IVPUSH 12/03/18 15:47 125 mg ONETIME ONE Administration Morphine Sulfate 4 mg 12/03/18 15:50 12/03/18 15:54 Morphine IVPUSH 12/03/18 15:51 4 mg ONETIME ONE Administration - Re-Assessments/Exams Free Text/Narrative Re-Assessment/Exam: I evaluated patietn immediately after presentation, personally gave EPI IM x 2, anaphylaxis orders and EKG completed. Patient had improvement of symptoms and mentation within 15 minute of arrival. 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 Repeat evaluation is completed. Patient has numerous stings noted on various parts of his body. Patient's breathing is much improved, slight nasal congestion swelling in his posterior pharynx and tongue have resolved patient's is much more comfortable and breathing easily. No hives or additional lesions noted. He's having some discomfort due to the bee stings. Patient will be given a liter fluids and monitored in the department for couple of hours to ensure no rebound anaphylactic symptoms. 12/03/18 14:45 Departure - Departure Time of Disposition: 17:15 Disposition: Home, Self-Care 01 Condition: Good Clinical Impression: Anaphylactic reaction, Insect sting allergy, current reaction - Discharge Information Prescriptions: Cimetidine [Tagamet Hb] 200 mg PO TIDAC 10 Days #30 tablet EPINEPHrine [Epinephrine] 0.3 mg IJ ONETIME PRN #2 auto.injct PRN Reason: Allergies Loratadine [Claritin] 10 mg PO BID 10 Days #20 tablet predniSONE [Prednisone] 20 mg PO BID 5 Days #10 tablet Instructions: Allergies, Adult, [id number], Epinephrine Injection, Anaphylactic Reaction, Adult, [id number], Bee, Wasp, or Hornet Sting, Adult Referrals: PCP,None [Primary Care Provider] - 3 Days (Call PCP on Thursday for recheck to ensure improving. ) Forms: ED Department Discharge Additional Instructions: 1. Claritin 10mg every am and pm x 10 days to prevent rebound reaction. 2. Prednisone 20mg every am and pm x 5 days to prevent rebound reaction. 3. Tagament 300mg TID x 10 days to prevent rebound reaction. 4. EPI PEN if severe reaction occurs #2 with refill x 1. 5. Call PCP of choice Thursday for recheck next week to ensure improving and no concerning symptoms. 6. Return to ER if concerns or new symptoms. - Problem List & Annotations (1) Anaphylactic reaction SNOMED Code(s): 76999385 Code(s): T78.2XXA - ANAPHYLACTIC SHOCK, UNSPECIFIED, INITIAL ENCOUNTER Status: Acute Current Visit: Yes (2) Decreased level of consciousness on examination SNOMED Code(s): 041595521 Code(s): RAV8866 - Status: Acute Current Visit: Yes (3) Insect sting allergy, current reaction SNOMED Code(s): 491942555, 828943116 Code(s): T63.481A - TOXIC EFFECT OF VENOM OF ARTHROPOD, ACCIDENTAL, INIT Status: Acute Current Visit: Yes - My Orders Last 24 Hours: My Active Orders 12/03/18 15:46 EKG 12 Lead [EK] Routine 12/03/18 15:47 EKG Documentation Completion [RC] ASDIRECTED 12/03/18 15:50 Cardiac Monitoring [RC] .As Directed 12/03/18 16:00 Sodium Chloride 0.9% [Normal Saline] 1,000 ml IV ASDIRECTED - Assessment/Plan Last 24 Hours: My Active Orders 12/03/18 15:46 EKG 12 Lead [EK] Routine 12/03/18 15:47 EKG Documentation Completion [RC] ASDIRECTED 12/03/18 15:50 Cardiac Monitoring [RC] .As Directed 12/03/18 16:00 Sodium Chloride 0.9% [Normal Saline] 1,000 ml IV ASDIRECTED Plan: 1. Claritin 10mg every am and pm x 10 days to prevent rebound reaction. 2. Prednisone 20mg every am and pm x 5 days to prevent rebound reaction. 3. Tagament 300mg TID x 10 days to prevent rebound reaction. 4. EPI PEN if severe reaction occurs #2 with refill x 1. 5. Call PCP of choice Thursday for recheck next week to ensure improving and no concerning symptoms. 6. Return to ER if concerns or new symptoms.
[2018-12-03] MEDS ORDERED: Morphine 4 MG/ML Syringe IVPUSH ONE (15:50)
[2018-12-03] MEDS ORDERED: Famotidine 20 MG/2 ML SDV IVPUSH ONE (15:53)
[2018-12-03 16:00] VITALS: PULSE 86
[2018-12-03] MEDS ORDERED: Sodium Chloride 0.9% 1,000 ML IV SCH (16:00)
[2018-12-03 16:55] VITALS: BP 130/79
== END 2018-12-03 17:40 | disposition home or self-care (01) ==
LOC: JP.ED 14:45
DX: T63.441A Toxic effect of venom of bees, accidental (unintentional), initial encounter (principal); T78.2XXA Anaphylactic shock, unspecified, initial encounter; I10 Essential (primary) hypertension; I25.10 Atherosclerotic heart disease of native coronary artery without angina pectoris; I25.2 Old myocardial infarction; F41.9 Anxiety disorder, unspecified; F32.9 Major depressive disorder, single episode, unspecified; Z91.013 Allergy to seafood; Z91.018 Allergy to other foods; Z91.041 Radiographic dye allergy status; Z88.8 Allergy status to other drugs, medicaments and biological substances; Z91.048 Other nonmedicinal substance allergy status; Z79.899 Other long term (current) drug therapy; Z87.442 Personal history of urinary calculi
CPT/HCPCS: 93005; 96361; 96372; 96374; 96375; 99283; J0171; J1200; J2270; J2930; J3490; J7030

== ENCOUNTER 2019-02-08 21:24 | Emergency (ER) | payer MEDICAID ==
[2019-02-08] MEDS ORDERED: diphenhydrAMINE 50 MG/ML SDV IVPUSH ONE (22:33)
[2019-02-08] MEDS ORDERED: Ondansetron 4 MG/2 ML SDV IVPUSH ONE (22:33)
[2019-02-08] MEDS ORDERED: HYDROmorphone 0.5 MG/0.5 ML Syringe IVPUSH ONE (22:34)
[2019-02-08] MEDS ORDERED: Lactated Ringers 1,000 ML IV SCH (22:45)
--- NOTE | 2019-02-08 22:47 | EDM.PDOC ---
ED HPI GENERAL MEDICAL PROBLEM - General Chief Complaint: Headache Stated Complaint: MEDICAL Time Seen by Provider: 02/08/19 22:30 Source of Information: Reports: Patient History Limitations: Reports: No Limitations - History of Present Illness INITIAL COMMENTS - FREE TEXT/NARRATIVE: 63 yo presents with concerns of headache Has history of migraines Reports that pain started insidiously this morning Worsened throughout the day today PD were at house today, reportedly removed minor from home because smelled like cat urine Headache is left sided Originated in frontal lobe and radiates posterior Associated nausea and photophobia Feels the same as previous CALIX No fever. No weakness, difficulty walking, trouble with speech. Does endorses auditory hallucinations, long intermittent history of this. Mostly the voices of his friends. Not telling him to hurt self or others. Denies SI/HI. Headache Pain Score (Numeric/FACES): 9 - Related Data Allergies Allergy/AdvReac Type Severity Reaction Status Date / Time iodine Allergy Severe Anaphylactic Verified 02/08/19 21:46 Shock shellfish derived Allergy Severe Anaphylactic Verified 02/08/19 21:46 Shock bee venom protein (honey bee) Allergy Anaphylactic Verified 02/08/19 21:46 Shock gabapentin Allergy Cannot Verified 02/08/19 21:46 Remember IV contrast Allergy Severe Anaphylactic Uncoded 02/08/19 21:46 Shock tomato Allergy Hives Uncoded 02/08/19 21:46 Home Meds: Home Meds Amitriptyline [Elavil] 50 mg PO BEDTIME 03/08/13 [History] traMADol HCl [Rybix ODT] 100 mg PO BEDTIME PRN 03/08/13 [History] Ondansetron [Zofran ODT] 8 mg PO Q6H PRN 09/13/14 [History] Rizatriptan Benzoate [Rizatriptan] 5 mg PO ASDIRECTED PRN 09/13/14 [History] Carvedilol 6.25 mg PO BID 10/16/15 [History] Lisinopril 10 mg PO DAILY 10/16/15 [History] amLODIPine Besylate [Amlodipine Besylate] 1 tab PO DAILY 11/12/18 [History] Cimetidine [Tagamet Hb] 200 mg PO TIDAC 10 Days #30 tablet 12/03/18 [Rx] EPINEPHrine [Epinephrine] 0.3 mg IJ ONETIME PRN #2 auto.injct 12/03/18 [Rx] predniSONE [Prednisone] 20 mg PO BID 5 Days #10 tablet 12/03/18 [Rx] Past Medical History HEENT History: Reports: Impaired Vision Cardiovascular History: Reports: CAD, Hypertension, Other (See Below) Other Cardiovascular History: blood infection weakened heart wall Gastrointestinal History: Reports: GI Bleed Genitourinary History: Reports: Renal Calculus Musculoskeletal History: Reports: Back Pain, Chronic, Osteoarthritis, Other ( See Below) Other Musculoskeletal History: L knee injury 11/12/18 Neurological History: Reports: Concussion, Migraines Psychiatric History: Reports: Anxiety, Depression, PTSD, Other (See Below) Other Psychiatric History: pt has a support dog for ptsd/anxiety Dermatologic History: Reports: Cellulitis - Infectious Disease History Infectious Disease History: Reports: Chicken Pox, Mumps - Past Surgical History HEENT Surgical History: Reports: Oral Surgery, Tonsillectomy GI Surgical History: Reports: Colonoscopy, EGD Social & Family History - Family History Family Medical History: Noncontributory - Tobacco Use Smoking Status *Q: Never Smoker - Caffeine Use Caffeine Use: Reports: None - Recreational Drug Use Recreational Drug Use: No - Living Situation & Occupation Living situation: Reports: (lives with and two children in [facility]), with Spouse Occupation: Disabled ED ROS GENERAL - Review of Systems Review Of Systems: See Below Constitutional: Reports: No Symptoms HEENT: Reports: No Symptoms Respiratory: Reports: No Symptoms Cardiovascular: Reports: No Symptoms Endocrine: Reports: No Symptoms GI/Abdominal: Reports: Nausea : Reports: No Symptoms Musculoskeletal: Reports: No Symptoms Skin: Reports: No Symptoms Neurological: Reports: Headache Psychiatric: Reports: No Symptoms Hematologic/Lymphatic: Reports: No Symptoms Immunologic: Reports: No Symptoms - Physical Exam Exam: See Below Exam Limited By: No Limitations General Appearance: Alert, Moderate Distress Ears: Normal External Exam Nose: Normal Inspection Throat/Mouth: Normal Inspection Head Exam: Atraumatic, Normocephalic Neck: Full Range of Motion Respiratory/Chest: No Respiratory Distress, Lungs Clear Cardiovascular: Regular Rate, Rhythm GI/Abdominal: Soft, Non-Tender Neuro Exam (Abbreviated): Alert, Oriented, CN II-XII Intact, No Motor/Sensory Deficits, Other (normal cordination ) Back Exam: Normal Inspection Extremities: Normal Inspection Psychiatric: Normal Mood Skin Exam: Warm, Dry Course - Vital Signs Last Recorded V/S: Last Vital Signs Temp 36.3 C 02/08/19 21:26 Pulse 67 02/09/19 00:16 Resp 18 02/09/19 00:16 BP 139/70 02/09/19 00:16 Pulse Ox 99 02/09/19 00:16 - Orders/Labs/Meds Orders: Active Orders 24 hr Category Date Time Status Lactated Ringers [Ringers, Lactated] 1,000 ml Med 02/08/19 22:45 Active IV BOLUS Medication Orders Lactated Ringer's (Ringers, Lactated) 1,000 mls @ 999 mls/hr IV BOLUS MILTON Last Admin: 02/08/19 23:09 Dose: 999 mls/hr Meds: Medications Generic Name Dose Route Start Last Admin Trade Name Freq PRN Reason Stop Dose Admin Lactated Ringer's 1,000 mls @ 999 mls/hr 02/08/19 22:45 02/08/19 23:09 Ringers, Lactated IV 999 mls/hr BOLUS [place] Administration Discontinued Medications Generic Name Dose Route Start Last Admin Trade Name Freq PRN Reason Stop Dose Admin Diphenhydramine HCl 50 mg 02/08/19 22:33 02/08/19 23:09 Benadryl IVPUSH 02/08/19 22:34 50 mg ONETIME ONE Administration Hydromorphone HCl 0.5 mg 02/08/19 22:34 02/08/19 23:10 Dilaudid IVPUSH 02/08/19 22:35 0.5 mg ONETIME ONE Administration Ondansetron HCl 4 mg 02/08/19 22:33 02/08/19 23:09 Zofran IVPUSH 02/08/19 22:34 4 mg ONETIME ONE Administration - Re-Assessments/Exams Free Text/Narrative Re-Assessment/Exam: 63 yo with hx of PTSD, migraine headaches presents with CALIX Reports typically migrainous symptoms, worsened by having police at home today. Neuro intact. Symptoms and exam not suggestive of HAT BLOCKING OPERATOR infection, tumor, vacular catastrophe Imaging deferred Treating symptomatically with benadryl, zofran, IVF. He quite persistent about receiving dilaudid, "always" gets this, administering small dose. Expect to treat symptomatically and discharge if stable on re-eval. 02/08/19 22:48 Departure - Departure Time of Disposition: 00:53 Disposition: Home, Self-Care 01 Clinical Impression: Migraine - Discharge Information *PRESCRIPTION DRUG MONITORING PROGRAM REVIEWED*: No *COPY OF PRESCRIPTION DRUG MONITORING REPORT IN PATIENT EVA: No Instructions: Migraine Headache, [id number] Referrals: Roman Metzger MD [Primary Care Provider] - Forms: ED Department Discharge Additional Instructions: Please continues to take tylenol at home as needed for your migraine Return to the ER if you develop symptoms which are atypical for your migraines such as difficulty walking, slurred speech. Follow up with your PCP as needed - My Orders Last 24 Hours: My Active Orders 02/08/19 22:45 Lactated Ringers [Ringers, Lactated] 1,000 ml IV BOLUS - Assessment/Plan Last 24 Hours: My Active Orders 02/08/19 22:45 Lactated Ringers [Ringers, Lactated] 1,000 ml IV BOLUS
[2019-02-09 00:17] VITALS: BP 139/70; PULSE 67
== END 2019-02-09 01:10 | disposition home or self-care (01) ==
LOC: JP.ED 21:24
DX: G43.909 Migraine, unspecified, not intractable, without status migrainosus (principal); I10 Essential (primary) hypertension; F41.9 Anxiety disorder, unspecified; F32.9 Major depressive disorder, single episode, unspecified; Z91.048 Other nonmedicinal substance allergy status; Z91.013 Allergy to seafood; Z91.030 Bee allergy status; Z91.041 Radiographic dye allergy status; Z91.018 Allergy to other foods; Z88.8 Allergy status to other drugs, medicaments and biological substances; Z79.899 Other long term (current) drug therapy
CPT/HCPCS: 96361; 96374; 96375; 99283; J1170; J1200; J2405; J7120

== ENCOUNTER 2019-05-02 11:05 | Emergency (ER) | payer MEDICAID ==
[2019-05-02] MEDS ORDERED: SUMAtriptan 6 MG/0.5 ML SDV SUBCUT ONE (11:10)
[2019-05-02] MEDS ORDERED: Ondansetron 4 MG/2 ML SDV IVPUSH ONE (11:35)
[2019-05-02] MEDS ORDERED: diphenhydrAMINE 50 MG/ML SDV IVPUSH ONE (11:35)
[2019-05-02] MEDS ORDERED: Ketorolac 30 MG/ML SDV IVPUSH ONE (11:35)
[2019-05-02] MEDS ORDERED: HYDROmorphone 1 MG/ML Syringe IVPUSH ONE ×2 (11:35→12:42)
[2019-05-02] MEDS ORDERED: Sodium Chloride 0.9% 1,000 ML IV SCH (11:45)
--- NOTE | 2019-05-02 11:46 | EDM.PDOC ---
ED HPI GENERAL MEDICAL PROBLEM - General Chief Complaint: Headache Stated Complaint: MIGRAINE Time Seen by Provider: 05/02/19 11:25 Source of Information: Reports: Patient, Family History Limitations: Reports: No Limitations - History of Present Illness INITIAL COMMENTS - FREE TEXT/NARRATIVE: 63-year-old male with a long history of recurring migraines, usually aborted with oral Maxalt and ibuprofen presents with a severe left-sided migraine headache for the past 1 hour. He had an echocardiogram this morning, felt something was coming on at that time, went home and took a short nap and was awoken with left-sided throbbing headache pain and nausea and vomiting. This headache is typical of his past bad migraines. He did not have time to take any Maxalt. Duration: Hour(s): (1 hour) Location: Reports: Other (Right-sided periorbital and temporal headache) Associated Symptoms: Reports: Nausea/Vomiting Left Headache Pain Score (Numeric/FACES): 7 - Related Data Allergies Allergy/AdvReac Type Severity Reaction Status Date / Time iodine Allergy Severe Anaphylactic Verified 04/08/19 04:51 Shock shellfish derived Allergy Severe Anaphylactic Verified 04/08/19 04:51 Shock bee venom protein (honey bee) Allergy Anaphylactic Verified 04/08/19 04:51 Shock gabapentin Allergy Cannot Verified 04/08/19 04:51 Remember IV contrast Allergy Severe Anaphylactic Uncoded 04/08/19 04:51 Shock tomato Allergy Hives Uncoded 04/08/19 04:51 Home Meds: Home Meds Amitriptyline [Elavil] 50 mg PO BEDTIME 03/08/13 [History] traMADol HCl [Rybix ODT] 100 mg PO BEDTIME PRN 03/08/13 [History] Ondansetron [Zofran ODT] 8 mg PO Q6H PRN 09/13/14 [History] Rizatriptan Benzoate [Rizatriptan] 5 mg PO ASDIRECTED PRN 09/13/14 [History] Lisinopril 10 mg PO DAILY 10/16/15 [History] carvediloL [Carvedilol] 6.25 mg PO BID 10/16/15 [History] amLODIPine Besylate [Amlodipine Besylate] 1 tab PO DAILY 11/12/18 [History] Cimetidine [Tagamet Hb] 200 mg PO TIDAC 10 Days #30 tablet 12/03/18 [Rx] EPINEPHrine [Epinephrine] 0.3 mg IJ ONETIME PRN #2 auto.injct 12/03/18 [Rx] predniSONE [Prednisone] 20 mg PO BID 5 Days #10 tablet 12/03/18 [Rx] Past Medical History HEENT History: Reports: Impaired Vision Cardiovascular History: Reports: CAD, Hypertension, Other (See Below) Other Cardiovascular History: blood infection weakened heart wall Gastrointestinal History: Reports: GI Bleed Genitourinary History: Reports: Renal Calculus Musculoskeletal History: Reports: Back Pain, Chronic, Osteoarthritis, Other ( See Below) Other Musculoskeletal History: L knee injury 11/12/18 Neurological History: Reports: Concussion, Migraines Psychiatric History: Reports: Anxiety, Depression, PTSD, Other (See Below) Other Psychiatric History: pt has a support dog for ptsd/anxiety Dermatologic History: Reports: Cellulitis - Infectious Disease History Infectious Disease History: Reports: Chicken Pox - Past Surgical History HEENT Surgical History: Reports: Oral Surgery, Tonsillectomy GI Surgical History: Reports: Colonoscopy, EGD Social & Family History - Family History Family Medical History: Noncontributory - Tobacco Use Smoking Status *Q: Never Smoker - Caffeine Use Caffeine Use: Reports: Soda - Recreational Drug Use Recreational Drug Use: No - Living Situation & Occupation Living situation: Reports: (lives with and two children in [place]), with Spouse Occupation: Disabled ED ROS GENERAL - Review of Systems Review Of Systems: See Below Constitutional: Denies: Fever, Chills HEENT: Reports: Other (Photophobia). Denies: Vision Change Respiratory: Reports: Shortness of Breath Cardiovascular: Denies: Chest Pain GI/Abdominal: Reports: Nausea, Vomiting Skin: Reports: No Symptoms Neurological: Reports: Headache, Difficulty Walking, Weakness - Physical Exam Exam: See Below Exam Limited By: No Limitations General Appearance: Moderate Distress Eye Exam: Bilateral Eye: EOMI, PERRL, Other (Very photophobic) Head Exam: Atraumatic Respiratory/Chest: No Respiratory Distress Neuro Exam (Abbreviated): Alert, Oriented, No Motor/Sensory Deficits, Slow to Respond Psychiatric: Flat Affect Course - Vital Signs Last Recorded V/S: Last Vital Signs Temp 95.7 F 05/02/19 11:21 Pulse 69 05/02/19 12:52 Resp 12 12/09/19 12:52 BP 125/70 05/02/19 12:52 Pulse Ox 99 05/02/19 11:21 - Orders/Labs/Meds Meds: Medications Discontinued Medications Generic Name Dose Route Start Last Admin Trade Name Torin PRN Reason Stop Dose Admin Diphenhydramine HCl 50 mg 05/02/19 11:35 05/02/19 11:41 Benadryl IVPUSH 05/02/19 11:36 50 mg ONETIME ONE Administration Hydromorphone HCl 1 mg 05/02/19 11:35 05/02/19 11:41 Dilaudid IVPUSH 05/02/19 11:36 1 mg ONETIME ONE Administration Hydromorphone HCl 1 mg 05/02/19 12:42 05/02/19 13:06 Dilaudid IVPUSH 05/02/19 12:43 1 mg ONETIME ONE Administration Sodium Chloride 1,000 mls @ 1,000 mls/hr 05/02/19 11:45 05/02/19 11:50 Normal Saline IV 1,000 mls/hr ASDIRECTED MILTON Administration Ketorolac Tromethamine 30 mg 05/02/19 11:35 05/02/19 11:41 Toradol IVPUSH 05/02/19 11:36 30 mg ONETIME ONE Administration Ondansetron HCl 4 mg 05/02/19 11:35 05/02/19 11:41 Zofran IVPUSH 05/02/19 11:36 4 mg ONETIME ONE Administration Sumatriptan Succinate 6 mg 05/02/19 11:10 05/02/19 11:17 Imitrex SUBCUT 05/02/19 11:11 6 mg ONETIME ONE Administration - Re-Assessments/Exams Free Text/Narrative Re-Assessment/Exam: 05/02/19 11:45 6 mg of subcutaneous Imitrex was attempted first because of his past responses to Maxalt. After 15 to 20 minutes did not seem to be making much of a difference, so an IV was started. He will be given 1 L of normal saline, 50 mg of IV Benadryl, 30 of Toradol, 1 of Dilaudid, and 4 of IV Zofran. This has helped him in the past. 05/02/19 13:47 Initially pain went from a 10 to a 7, after an additional 1 mg of Dilaudid it was much improved. He was discharged to continue his regular medications and discuss with his primary provider any further preventive treatments available. Departure - Departure Time of Disposition: 13:55 Disposition: Home, Self-Care 01 Clinical Impression: Migraine headache Qualifiers: Migraine type: without aura Status migrainosus presence: without status migrainosus Intractability: not intractable Qualified Code(s): G43.009 - Migraine without aura, not intractable, without status migrainosus - Discharge Information Instructions: Recurrent Migraine Headache, [id number] Referrals: Roman Metzger MD [Primary Care Provider] - Forms: ED Department Discharge Additional Instructions: Rest today, increase activity as tolerated and continue your usual medications. Consider rechecking with Dr. Metzger to discuss Botox or other long-term preventative medications or treatments.
[2019-05-02 13:07] VITALS: BP 125/70; PULSE 69
== END 2019-05-02 13:55 | disposition home or self-care (01) ==
LOC: JP.ED 11:05
DX: G43.909 Migraine, unspecified, not intractable, without status migrainosus (principal); I10 Essential (primary) hypertension; Z79.899 Other long term (current) drug therapy
CPT/HCPCS: 96361; 96372; 96374; 96375; 96376; 99285; J1170; J1200; J1885; J2405; J3030; J7030

== ENCOUNTER 2019-05-19 09:46 | Emergency (ER) | payer MEDICAID ==
[2019-05-19] MEDS ORDERED: Prochlorperazine 10 MG/2 ML SDV IVPUSH ONE (10:19)
[2019-05-19] MEDS ORDERED: diphenhydrAMINE 25 MG Cap PO ONE (10:19)
[2019-05-19] MEDS ORDERED: Ketorolac 30 MG/ML SDV IVPUSH ONE (10:19)
[2019-05-19] MEDS ORDERED: Sodium Chloride 0.9% 1,000 ML IV SCH (10:30)
[2019-05-19] MEDS ORDERED: HYDROmorphone 1 MG/ML Syringe IVPUSH ONE (11:04)
[2019-05-19 11:29] VITALS: BP 141/73; PULSE 64
--- NOTE | 2019-05-19 11:31 | EDM.PDOC ---
ED HPI GENERAL MEDICAL PROBLEM - General Chief Complaint: Headache Stated Complaint: fell Time Seen by Provider: 05/19/19 09:50 Source of Information: Reports: Patient History Limitations: Reports: No Limitations - History of Present Illness INITIAL COMMENTS - FREE TEXT/NARRATIVE: pt arrived with a migraine headache. He was off balance this am and he fell and he landed on his nose. He now has sig swelling in the nose. He has been nauseated but has not vomited. Onset: Today, Sudden, Other (headache started very severe about 2 hours ago. He had not tried any meds at home. ) Duration: Hour(s): Location: Reports: Head Associated Symptoms: Reports: Headaches, Other (pt has nausea. ) migraine Pain Score (Numeric/FACES): 9 - Related Data Allergies Allergy/AdvReac Type Severity Reaction Status Date / Time iodine Allergy Severe Anaphylactic Verified 05/19/19 09:55 Shock shellfish derived Allergy Severe Anaphylactic Verified 05/19/19 09:55 Shock bee venom protein (honey bee) Allergy Anaphylactic Verified 05/19/19 09:55 Shock gabapentin Allergy Cannot Verified 05/19/19 09:55 Remember IV contrast Allergy Severe Anaphylactic Uncoded 05/19/19 09:55 Shock tomato Allergy Hives Uncoded 05/19/19 09:55 Home Meds: Home Meds Amitriptyline [Elavil] 100 mg PO BEDTIME 03/08/13 [History] Ondansetron [Zofran ODT] 8 mg PO Q6H PRN 09/13/14 [History] Rizatriptan Benzoate [Rizatriptan] 5 mg PO ASDIRECTED PRN 09/13/14 [History] Lisinopril 10 mg PO DAILY 10/16/15 [History] carvediloL [Carvedilol] 6.25 mg PO BID 10/16/15 [History] amLODIPine Besylate [Amlodipine Besylate] 1 tab PO DAILY 11/12/18 [History] EPINEPHrine [Epinephrine] 0.3 mg IJ ONETIME PRN #2 auto.injct 12/03/18 [Rx] predniSONE [Prednisone] 20 mg PO BID 5 Days #10 tablet 12/03/18 [Rx] Past Medical History HEENT History: Reports: Cataract, Impaired Vision Cardiovascular History: Reports: CAD, Hypertension, Other (See Below) Other Cardiovascular History: blood infection weakened heart wall Gastrointestinal History: Reports: GI Bleed Genitourinary History: Reports: Renal Calculus Musculoskeletal History: Reports: Back Pain, Chronic, Osteoarthritis, Other ( See Below) Other Musculoskeletal History: L knee injury 11/12/18 Neurological History: Reports: Concussion, Migraines Psychiatric History: Reports: Anxiety, Depression, PTSD, Other (See Below) Other Psychiatric History: pt has a support dog for ptsd/anxiety Dermatologic History: Reports: Cellulitis - Infectious Disease History Infectious Disease History: Reports: Chicken Pox, Mumps - Past Surgical History HEENT Surgical History: Reports: Oral Surgery, Tonsillectomy GI Surgical History: Reports: Colonoscopy, EGD Male Surgical History: Reports: Lithotripsy (ESWL) Musculoskeletal Surgical History: Reports: Other (See Below) Other Musculoskeletal Surgeries/Procedures:: ulnar nerve transport x4- left side Social & Family History - Family History Family Medical History: Noncontributory - Tobacco Use Smoking Status *Q: Never Smoker - Caffeine Use Caffeine Use: Reports: Soda, Tea - Recreational Drug Use Recreational Drug Use: No - Living Situation & Occupation Living situation: Reports: (lives with and two children in [place], [place].), with Spouse Occupation: Disabled ED ROS GENERAL - Review of Systems Review Of Systems: See Below Constitutional: Reports: No Symptoms HEENT: Reports: Other (pt has swelling of the nose. ) Respiratory: Reports: No Symptoms Cardiovascular: Reports: No Symptoms Endocrine: Reports: No Symptoms GI/Abdominal: Reports: No Symptoms, Nausea : Reports: No Symptoms Musculoskeletal: Reports: No Symptoms ED EXAM, HEAD INJURY - Physical Exam Exam: See Below Text/Narrative:: pt arrived with a 2 hour hisory of headache. He fell this am and he hit his nose. He has not been vomiting. he has been very nauseated. Exam Limited By: No Limitations General Appearance: Alert, Anxious, Severe Distress Head: Other (pt has sig swelling of the nose. ) Ears: Normal TMs Nose: Other ( swelling of the nose. ) Throat/Mouth: Normal Inspection Neck: Non-Tender Respiratory: No Respiratory Distress Cardiovascular: Regular Rate, Rhythm GI/Abdominal Exam: Soft, Non-Tender (Male) Exam: Deferred Rectal (Males) Exam: Deferred Back Exam: Normal Inspection Course - Vital Signs Last Recorded V/S: Last Vital Signs Temp 34.8 C L 05/19/19 09:53 Pulse 64 05/19/19 11:16 Resp 16 05/19/19 09:53 BP 141/73 H 05/19/19 11:16 Pulse Ox 99 05/19/19 09:53 - Orders/Labs/Meds Meds: Medications Discontinued Medications Generic Name Dose Route Start Last Admin Trade Name Torin PRN Reason Stop Dose Admin Diphenhydramine HCl 50 mg 05/19/19 10:19 05/19/19 10:29 Benadryl PO 05/19/19 10:20 50 mg ONETIME ONE Administration Hydromorphone HCl 1 mg 05/19/19 11:04 05/19/19 11:26 Dilaudid IVPUSH 05/19/19 11:05 1 mg ONETIME ONE Administration Hydromorphone HCl 0.5 mg 05/19/19 12:29 05/19/19 12:56 Dilaudid IVPUSH 05/19/19 12:30 0.5 mg ONETIME ONE Administration Sodium Chloride 1,000 mls @ 999 mls/hr 05/19/19 10:30 05/19/19 10:27 Normal Saline IV 999 mls/hr ASDIRECTED MILTON Administration Ketorolac Tromethamine 30 mg 05/19/19 10:19 05/19/19 10:35 Toradol IVPUSH 05/19/19 10:20 30 mg ONETIME ONE Administration Lorazepam 0.5 mg 05/19/19 12:30 05/19/19 12:53 Ativan IVPUSH 05/19/19 12:31 0.5 mg ONETIME ONE Administration Prochlorperazine Edisylate 10 mg 05/19/19 10:19 05/19/19 10:31 Compazine IVPUSH 05/19/19 10:20 10 mg ONETIME ONE Administration - Re-Assessments/Exams Free Text/Narrative Re-Assessment/Exam: 05/19/19 13:08 pt had a neg xray of the nose no sign of fracture, His head is good and he is able to rest. Departure - Departure Time of Disposition: 13:08 Disposition: Home, Self-Care 01 Condition: Fair Clinical Impression: Contusion of nose Migraine headache Qualifiers: Migraine type: without aura Status migrainosus presence: without status migrainosus Intractability: not intractable Qualified Code(s): G43.009 - Migraine without aura, not intractable, without status migrainosus - Discharge Information Instructions: Migraine Headache, [id number], Contusion, [id number] Referrals: Roman Metzger MD [Primary Care Provider] - Forms: ED Department Discharge Care Plan Goals: push fluids, rest, low activity for next 24 hours. Sepsis Event Note - Evaluation Sepsis Screening Result: No Definite Risk - Focused Exam Date Exam was Performed: 05/23/19 Time Exam was Performed: 07:47
[2019-05-19] MEDS ORDERED: HYDROmorphone 0.5 MG/0.5 ML Syringe IVPUSH ONE (12:29)
[2019-05-19] MEDS ORDERED: LORazepam 2 MG/ML SDV IVPUSH ONE (12:30)
--- NOTE | 2019-05-19 12:39 | CRLCR ---
INDICATION: Nasal injury TECHNIQUE: Nasal bone 3 views. COMPARISON: None. IMPRESSION: Unremarkable radiographs of the nasal bone. No sign of fracture. The orbits and sinuses appear unremarkable. Dictated by: Jacob Menchaca MD @ 05/19/2019 12:38:20 (Electronically Signed)
== END 2019-05-19 14:23 | disposition home or self-care (01) ==
LOC: JP.ED 09:46
DX: S00.33XA Contusion of nose, initial encounter (principal); G43.009 Migraine without aura, not intractable, without status migrainosus; F41.9 Anxiety disorder, unspecified; F32.9 Major depressive disorder, single episode, unspecified; I10 Essential (primary) hypertension; I25.10 Atherosclerotic heart disease of native coronary artery without angina pectoris; Z91.013 Allergy to seafood; Z91.030 Bee allergy status; Z88.8 Allergy status to other drugs, medicaments and biological substances; Z91.09 Other allergy status, other than to drugs and biological substances; Z91.018 Allergy to other foods; Z79.899 Other long term (current) drug therapy; W19.XXXA Unspecified fall, initial encounter
CPT/HCPCS: 70160; 96361; 96374; 96375; 96376; 99284; A9270; J0780; J1170; J1885; J2060; J7030

== ENCOUNTER 2019-05-23 10:56 | Inpatient (IN) | payer MEDICAID ==
[2019-05-23] MEDS ORDERED: diphenhydrAMINE 50 MG/ML SDV IVPUSH ONE (11:37)
[2019-05-23] MEDS ORDERED: Ketorolac 30 MG/ML SDV IVPUSH ONE (11:37)
[2019-05-23] MEDS ORDERED: Prochlorperazine 10 MG/2 ML SDV IVPUSH ONE (11:37)
[2019-05-23] MEDS ORDERED: Sodium Chloride 0.9% 1,000 ML IV SCH ×2 (11:45)
--- NOTE | 2019-05-23 12:26 | CT ---
Head wo ContHead wo Cont CLINICAL HISTORY: Syncope COMPARISON: None TECHNIQUE: Transverse scans were obtained from the base of the skull through the vertex without IV contrast on a multislice, multidetector CT scanner. Auto dosage reduction and iterative reconstruction techniques employed. FINDINGS: No focal abnormal parenchymal density is identified. There is no mass effect, hemorrhage, or extraaxial collection. The basal cisterns and sulci over the convexities are normal. The ventricles are normal for age. IMPRESSION: No focal lesion, mass effect or hemorrhage
--- NOTE | 2019-05-23 12:27 | CR ---
Shoulder Comp Lt CLINICAL HISTORY: Fall FINDINGS: There is no acute fracture or dislocation in the left shoulder. Articular surfaces are smooth. Impression: Negative
--- NOTE | 2019-05-23 12:30 | CR ---
Elbow Min 3V Lt CLINICAL HISTORY: Fall FINDINGS: No acute fracture or dislocation is noted. The fat pads are in normal position. Articular surfaces are smooth. Impression: No fracture or dislocation
[2019-05-23] MEDS ORDERED: HYDROmorphone 1 MG/ML Syringe IVPUSH ONE (12:53)
--- NOTE | 2019-05-23 13:50 | EDM.PDOC ---
ED HPI GENERAL MEDICAL PROBLEM - General Chief Complaint: Syncope Stated Complaint: FALL VIA [place] Time Seen by Provider: 05/23/19 11:00 Source of Information: Reports: Patient History Limitations: Reports: No Limitations, Other (pt was very uncomfortable with his migraine headache. ) - History of Present Illness INITIAL COMMENTS - FREE TEXT/NARRATIVE: pt arrived after having an episode where he passed out. His states he was not responding for at least a minute or 2. He did hit his left shoulder and his left elebow. Onset: Today, Sudden Duration: Hour(s): Location: Reports: Head, Upper Extremity, Left Associated Symptoms: Reports: Headaches, Other (pt states a migraine headache came on after the syncope. ) Headache Pain Score (Numeric/FACES): 8 - Related Data Allergies Allergy/AdvReac Type Severity Reaction Status Date / Time iodine Allergy Severe Anaphylactic Verified 05/19/19 09:55 Shock shellfish derived Allergy Severe Anaphylactic Verified 05/19/19 09:55 Shock bee venom protein (honey bee) Allergy Anaphylactic Verified 05/19/19 09:55 Shock gabapentin Allergy Cannot Verified 05/19/19 09:55 Remember IV contrast Allergy Severe Anaphylactic Uncoded 05/19/19 09:55 Shock tomato Allergy Hives Uncoded 05/19/19 09:55 Home Meds: Home Meds Amitriptyline [Elavil] 100 mg PO BEDTIME 03/08/13 [History] Ondansetron [Zofran ODT] 8 mg PO Q6H PRN 09/13/14 [History] Rizatriptan Benzoate [Rizatriptan] 5 mg PO ASDIRECTED PRN 09/13/14 [History] Lisinopril 10 mg PO DAILY 10/16/15 [History] carvediloL [Carvedilol] 6.25 mg PO BID 10/16/15 [History] amLODIPine Besylate [Amlodipine Besylate] 1 tab PO DAILY 11/12/18 [History] EPINEPHrine [Epinephrine] 0.3 mg IJ ONETIME PRN #2 auto.injct 12/03/18 [Rx] predniSONE [Prednisone] 20 mg PO BID 5 Days #10 tablet 12/03/18 [Rx] Past Medical History HEENT History: Reports: Cataract, Impaired Vision Cardiovascular History: Reports: CAD, Hypertension, Other (See Below) Other Cardiovascular History: blood infection weakened heart wall Gastrointestinal History: Reports: GI Bleed Genitourinary History: Reports: Renal Calculus Musculoskeletal History: Reports: Back Pain, Chronic, Osteoarthritis, Other ( See Below) Other Musculoskeletal History: L knee injury 11/12/18 Neurological History: Reports: Concussion, Migraines Psychiatric History: Reports: Anxiety, Depression, PTSD, Other (See Below) Other Psychiatric History: pt has a support dog for ptsd/anxiety Dermatologic History: Reports: Cellulitis - Infectious Disease History Infectious Disease History: Reports: Chicken Pox, Mumps - Past Surgical History HEENT Surgical History: Reports: Oral Surgery, Tonsillectomy GI Surgical History: Reports: Colonoscopy, EGD Male Surgical History: Reports: Lithotripsy (ESWL) Musculoskeletal Surgical History: Reports: Other (See Below) Other Musculoskeletal Surgeries/Procedures:: ulnar nerve transport x4- left side Social & Family History - Family History Family Medical History: Noncontributory - Tobacco Use Smoking Status *Q: Never Smoker - Caffeine Use Caffeine Use: Reports: Soda, Tea - Recreational Drug Use Recreational Drug Use: No - Living Situation & Occupation Living situation: Reports: (lives with and two children in [place], [place].), with Spouse Occupation: Disabled ED ROS GENERAL - Review of Systems Review Of Systems: See Below Constitutional: Reports: Decreased Appetite, Other (nausea. ) HEENT: Reports: No Symptoms Respiratory: Reports: No Symptoms Cardiovascular: Reports: No Symptoms, Syncope Endocrine: Reports: No Symptoms GI/Abdominal: Reports: No Symptoms : Reports: No Symptoms ED EXAM, NEURO - Physical Exam Exam: See Below Text/Narrative:: pt arrived with a history of syncope. He was unresponsive for 1-2 minutes. Exam Limited By: Other (pt has a severe headache.) General Appearance: Alert, Anxious, Severe Distress, Other (pt is in the midst of severe headache. ) Ears: Normal TMs Nose: Normal Inspection Throat/Mouth: Normal Inspection Head Exam: Atraumatic Neck: Normal Inspection Respiratory/Chest: No Respiratory Distress Cardiovascular: Regular Rate, Rhythm, Other (pt is having a rare ectopic. ) GI/Abdominal: Soft, Non-Tender (Male) Exam: Deferred Rectal (Males) Exam: Deferred Neurological: Alert, Oriented x 3 Back Exam: Normal Inspection Extremities: Normal Inspection Psychiatric: Anxious Course - Vital Signs Last Recorded V/S: Last Vital Signs Temp 35.5 C 05/23/19 11:02 Pulse 63 05/23/19 14:06 Resp 13 05/23/19 14:06 BP 153/86 H 05/23/19 14:06 Pulse Ox 95 05/23/19 14:06 - Orders/Labs/Meds Orders: Active Orders 24 hr Category Date Time Status Cardiac Monitoring [RC] .As Directed Care 05/23/19 13:49 Active EKG Documentation Completion [RC] ASDIRECTED Care 05/23/19 11:09 Active Orthostatic Vital Signs [RC] ASDIRECTED Care 05/23/19 11:08 Active UA W/MICROSCOPIC [URIN] Urgent Lab 05/23/19 11:07 Ordered Sodium Chloride 0.9% [Normal Saline] 1,000 ml Med 05/23/19 11:45 Active IV ASDIRECTED Sodium Chloride 0.9% [Normal Saline] 1,000 ml Med 05/23/19 11:45 Active IV ASDIRECTED EKG 12 Lead [EK] Routine Ther 05/23/19 11:09 Ordered Medication Orders Sodium Chloride (Normal Saline) 1,000 mls @ 999 mls/hr IV ASDIRECTED [facility] Last Admin: 05/23/19 12:17 Dose: 999 mls/hr Sodium Chloride (Normal Saline) 1,000 mls @ 999 mls/hr IV ASDIRECTED [place] Last Admin: 05/23/19 13:26 Dose: 999 mls/hr Labs: Laboratory Tests 05/23/19 05/23/19 05/23/19 Range/Units 11:19 11:19 11:19 WBC 5.6 (4.5-11.0) K/uL RBC 4.81 (4.30-5.90) M/uL Hgb 13.8 (12.0-15.0) g/dL Hct 41.7 (40.0-54.0) % MCV 87 (80-98) fL MCH 29 (27-31) pg MCHC 33 (32-36) % Plt Count 268 (150-400) K/uL Neut % (Auto) 51 (36-66) % Lymph % (Auto) 28 (24-44) % [place] % (Auto) 13 H (2-6) % Eos % (Auto) 7 H (2-4) % Baso % (Auto) 1 (0-1) % Sodium 140 (140-148) mmol/L Potassium 4.3 (3.6-5.2) mmol/L Chloride 105 (100-108) mmol/L Carbon Dioxide 29 (21-32) mmol/L Anion Gap 5.9 (5.0-14.0) mmol/L BUN 19 H (7-18) mg/dL Creatinine 1.4 H (0.8-1.3) mg/dL Est Cr Clr Drug Dosing 56.43 mL/min Estimated GFR (MDRD) 51 L (>60) Glucose 82 (74-106) mg/dL Calcium 9.4 (8.5-10.1) mg/dL Total Bilirubin 0.3 D (0.2-1.0) mg/dL AST 26 D (15-37) U/L ALT 54 (12-78) U/L Alkaline Phosphatase 122 H (46-116) U/L Troponin I 0.079 H* (0.000-0.056) ng/mL Total Protein 6.7 (6.4-8.2) g/dL Albumin 3.5 (3.4-5.0) g/dL Globulin 3.2 (2.3-3.5) g/dL Albumin/Globulin Ratio 1.1 L (1.2-2.2) 05/23/19 Range/Units 12:52 WBC (4.5-11.0) K/uL RBC (4.30-5.90) M/uL Hgb (12.0-15.0) g/dL Hct (40.0-54.0) % MCV (80-98) fL MCH (27-31) pg MCHC (32-36) % Plt Count (150-400) K/uL Neut % (Auto) (36-66) % Lymph % (Auto) (24-44) % [place] % (Auto) (2-6) % Eos % (Auto) (2-4) % Baso % (Auto) (0-1) % Sodium (140-148) mmol/L Potassium (3.6-5.2) mmol/L Chloride (100-108) mmol/L Carbon Dioxide (21-32) mmol/L Anion Gap (5.0-14.0) mmol/L BUN (7-18) mg/dL Creatinine (0.8-1.3) mg/dL Est Cr Clr Drug Dosing mL/min Estimated GFR (MDRD) (>60) Glucose (74-106) mg/dL Calcium (8.5-10.1) mg/dL Total Bilirubin (0.2-1.0) mg/dL AST (15-37) U/L ALT (12-78) U/L Alkaline Phosphatase (46-116) U/L Troponin I 0.074 H* (0.000-0.056) ng/mL Total Protein (6.4-8.2) g/dL Albumin (3.4-5.0) g/dL Globulin (2.3-3.5) g/dL Albumin/Globulin Ratio (1.2-2.2) Meds: Medications Generic Name Dose Route Start Last Admin Trade Name Freq PRN Reason Stop Dose Admin Sodium Chloride 1,000 mls @ 999 mls/hr 05/23/19 11:45 05/23/19 12:17 Normal Saline IV 999 mls/hr ASDIRECTED [place] Administration Sodium Chloride 1,000 mls @ 999 mls/hr 05/23/19 11:45 05/23/19 13:26 Normal Saline IV 999 mls/hr ASDIRECTED [place] Administration Discontinued Medications Generic Name Dose Route Start Last Admin Trade Name Freq PRN Reason Stop Dose Admin Diphenhydramine HCl 50 mg 05/23/19 11:37 05/23/19 12:19 Benadryl IVPUSH 05/23/19 11:38 50 mg ONETIME ONE Administration Hydromorphone HCl 1 mg 05/23/19 12:53 05/23/19 13:05 Dilaudid IVPUSH 05/23/19 12:54 1 mg ONETIME ONE Administration Ketorolac Tromethamine 30 mg 05/23/19 11:37 05/23/19 12:17 Toradol IVPUSH 05/23/19 11:38 30 mg ONETIME ONE Administration Prochlorperazine Edisylate 10 mg 05/23/19 11:37 05/23/19 12:19 Compazine IVPUSH 05/23/19 11:38 10 mg ONETIME ONE Administration - Re-Assessments/Exams Free Text/Narrative Re-Assessment/Exam: 05/23/19 13:53 pt has a creatnine of 1.4 and his trop is elevated. Pt does have a normal wbc. 05/23/19 13:54 05/23/19 14:52 pt had a second trop that was no further elevated. His headache is better. Departure - Departure Time of Disposition: 14:53 Disposition: Admitted As Inpatient 65 Condition: Fair Clinical Impression: Elevated troponin, Syncope - Discharge Information Referrals: Roman Metzger MD [Primary Care Provider] - Forms: ED Department Discharge Sepsis Event Note - Evaluation Sepsis Screening Result: No Definite Risk - Focused Exam Vital Signs: Vital Signs Temp Pulse Resp BP Pulse Ox 05/23/19 14:06 63 13 153/86 H 95 05/23/19 13:06 68 13 172/89 H 95 05/23/19 12:21 83 13 151/95 H 98 05/23/19 11:29 76 20 145/91 H 97 05/23/19 11:02 35.5 C 78 16 145/77 H 99 05/23/19 11:01 35.5 C 78 16 145/77 H 99 Date Exam was Performed: 05/23/19 Time Exam was Performed: 14:52 - My Orders Last 24 Hours: My Active Orders 05/23/19 11:07 UA W/MICROSCOPIC [URIN] Urgent 05/23/19 11:08 Orthostatic Vital Signs [RC] ASDIRECTED 05/23/19 11:09 EKG Documentation Completion [RC] ASDIRECTED EKG 12 Lead [EK] Routine 05/23/19 11:45 Sodium Chloride 0.9% [Normal Saline] 1,000 ml IV ASDIRECTED Sodium Chloride 0.9% [Normal Saline] 1,000 ml IV ASDIRECTED 05/23/19 13:49 Cardiac Monitoring [RC] .As Directed - Assessment/Plan Last 24 Hours: My Active Orders 05/23/19 11:07 UA W/MICROSCOPIC [URIN] Urgent 05/23/19 11:08 Orthostatic Vital Signs [RC] ASDIRECTED 05/23/19 11:09 EKG Documentation Completion [RC] ASDIRECTED EKG 12 Lead [EK] Routine 05/23/19 11:45 Sodium Chloride 0.9% [Normal Saline] 1,000 ml IV ASDIRECTED Sodium Chloride 0.9% [Normal Saline] 1,000 ml IV ASDIRECTED 05/23/19 13:49 Cardiac Monitoring [RC] .As Directed
--- NOTE | 2019-05-23 15:09 | PCM.HP.2 ---
H&P History of Present Illness - General Date of Service: 05/23/19 Admit Problem/Dx: Admission Diagnosis/Problem Admission Diagnosis/Problem Syncope Source of Information: Patient, Family, Provider, RN Notes Reviewed History Limitations: Reports: No Limitations - History of Present Illness Initial Comments - Free Text/Narative: Mr. Matos is a 63-year-old gentleman who was admitted to observation status through the emergency department following a syncopal episode and found to have a mild elevation in troponin level. He has been experiencing recent difficulty with increased frequency of migraine headaches. Otherwise has been feeling relatively well and denies any difficulty with cardiac dysrhythmias or coronary artery disease. He has had no recent symptoms of chest pain or pressure, no episodes of rapid or slow heart rate. This morning he was sitting in his chair and got up quickly to go into the kitchen. He only took a few steps and suddenly developed syncope dropping to the floor. He denies any preceding symptoms, specifically lightheadedness, weakness, nausea, diaphoresis, palpitations, or chest pain. His estimates that he was out for a minute or 2 but then quickly regained consciousness after that. He is never had syncopal episodes in the past. On evaluation in the emergency department there were no significant electrolyte abnormalities, he did have a modest elevation in troponin that was down slightly when repeated after 2 hours. Headache Pain Score (Numeric/FACES): 8 - Related Data Allergies/Adverse Reactions: Allergies Allergy/AdvReac Type Severity Reaction Status Date / Time iodine Allergy Severe Anaphylactic Verified 05/19/19 09:55 Shock shellfish derived Allergy Severe Anaphylactic Verified 05/19/19 09:55 Shock bee venom protein (honey bee) Allergy Anaphylactic Verified 05/19/19 09:55 Shock gabapentin Allergy Cannot Verified 05/19/19 09:55 Remember IV contrast Allergy Severe Anaphylactic Uncoded 05/19/19 09:55 Shock tomato Allergy Hives Uncoded 05/19/19 09:55 Home Medications: Home Meds Amitriptyline [Elavil] 100 mg PO BEDTIME 03/08/13 [History] Ondansetron [Zofran ODT] 8 mg PO Q6H PRN 09/13/14 [History] Rizatriptan Benzoate [Rizatriptan] 5 mg PO ASDIRECTED PRN 04/22/15 [History] Lisinopril 10 mg PO DAILY 10/16/15 [History] carvediloL [Carvedilol] 6.25 mg PO BID 10/16/15 [History] amLODIPine Besylate [Amlodipine Besylate] 1 tab PO DAILY 11/12/18 [History] EPINEPHrine [Epinephrine] 0.3 mg IJ ONETIME PRN #2 auto.injct 12/03/18 [Rx] predniSONE [Prednisone] 20 mg PO BID 5 Days #10 tablet 12/03/18 [Rx] Past Medical History HEENT History: Reports: Cataract, Impaired Vision Cardiovascular History: Reports: CAD, Hypertension, Other (See Below) Other Cardiovascular History: blood infection weakened heart wall Gastrointestinal History: Reports: GI Bleed Genitourinary History: Reports: Renal Calculus Musculoskeletal History: Reports: Back Pain, Chronic, Osteoarthritis, Other ( See Below) Other Musculoskeletal History: L knee injury 11/12/18 Neurological History: Reports: Concussion, Migraines Psychiatric History: Reports: Anxiety, Depression, PTSD, Other (See Below) Other Psychiatric History: pt has a support dog for ptsd/anxiety Dermatologic History: Reports: Cellulitis - Infectious Disease History Infectious Disease History: Reports: Chicken Pox, Mumps - Past Surgical History HEENT Surgical History: Reports: Oral Surgery, Tonsillectomy GI Surgical History: Reports: Colonoscopy, EGD Male Surgical History: Reports: Lithotripsy (ESWL) Musculoskeletal Surgical History: Reports: Other (See Below) Other Musculoskeletal Surgeries/Procedures:: ulnar nerve transport x4- left side Social & Family History - Family History Family Medical History: Noncontributory - Tobacco Use Smoking Status *Q: Never Smoker - Caffeine Use Caffeine Use: Reports: Soda, Tea - Recreational Drug Use Recreational Drug Use: No - Living Situation & Occupation Living situation: Reports: (lives with and two children in [facility] with Spouse Occupation: Disabled H&P Review of Systems - Review of Systems: Review Of Systems: See Below General: Reports: No Symptoms HEENT: Reports: Headaches. Denies: Ear Pain, Hearing Changes, Sinus Congestion , Sore Throat, Vertigo, Visual Changes Pulmonary: Reports: No Symptoms Cardiovascular: Reports: Syncope. Denies: Chest Pain, Palpitations, Dyspnea on Exertion, Orthopnea, PND, Edema, Lightheadedness Gastrointestinal: Reports: No Symptoms Genitourinary: Reports: No Symptoms Musculoskeletal: Reports: No Symptoms Skin: Reports: No Symptoms Psychiatric: Reports: No Symptoms Neurological: Reports: No Symptoms Hematologic/Lymphatic: Reports: No Symptoms Immunologic: Reports: No Symptoms Exam - Exam Exam: See Below - Vital Signs Vital Signs: Last Vital Signs Temp 96 F 05/23/19 11:02 Pulse 63 05/23/19 14:06 Resp 13 05/23/19 14:06 BP 153/86 H 05/23/19 14:06 Pulse Ox 95 05/23/19 14:06 Weight: 165 lb - Exam General: Alert, Oriented, Cooperative, Mild Distress HEENT: Conjunctiva Clear, Hearing Intact, Mucosa Moist & [place], Normal Nasal Septum, Posterior Pharynx Clear, Pupils Equal Neck: Supple, Trachea Midline, +2 Carotid Pulse wo Bruit Lungs: Clear to Auscultation, Normal Respiratory Effort Cardiovascular: Regular Rate, Regular Rhythm, Normal S1, Normal S2. No: Systolic Murmur, Diastolic Murmur GI/Abdominal Exam: Soft, Non-Tender, No Organomegaly, No Distention Back Exam: Normal Inspection, Full Range of Motion Skin: Warm, Dry, Intact Neurological: Cranial Nerves Intact, Strength Equal Bilateral, Normal Speech, Normal Tone, Sensation Intact. No: Focal Deficit Neuro Extensive - Mental Status: Alert, Oriented x3, Normal Mood/Affect, Normal Cognition, Memory Intact - Patient Data Lab Results Last 24 hrs: Laboratory Results - last 24 hr 05/23/19 05/23/19 05/23/19 Range/Units 11:19 11:19 11:19 WBC 5.6 (4.5-11.0) K/uL RBC 4.81 (4.30-5.90) M/uL Hgb 13.8 (12.0-15.0) g/dL Hct 41.7 (40.0-54.0) % MCV 87 (80-98) fL MCH 29 (27-31) pg MCHC 33 (32-36) % Plt Count 268 (150-400) K/uL Neut % (Auto) 51 (36-66) % Lymph % (Auto) 28 (24-44) % [place] % (Auto) 13 H (2-6) % Eos % (Auto) 7 H (2-4) % Baso % (Auto) 1 (0-1) % Sodium 140 (140-148) mmol/L Potassium 4.3 (3.6-5.2) mmol/L Chloride 105 (100-108) mmol/L Carbon Dioxide 29 (21-32) mmol/L Anion Gap 5.9 (5.0-14.0) mmol/L BUN 19 H (7-18) mg/dL Creatinine 1.4 H (0.8-1.3) mg/dL Est Cr Clr Drug Dosing 56.43 mL/min Estimated GFR (MDRD) 51 L (>60) Glucose 82 (74-106) mg/dL Calcium 9.4 (8.5-10.1) mg/dL Total Bilirubin 0.3 D (0.2-1.0) mg/dL AST 26 D (15-37) U/L ALT 54 (12-78) U/L Alkaline Phosphatase 122 H (46-116) U/L Troponin I 0.079 H* (0.000-0.056) ng/mL Total Protein 6.7 (6.4-8.2) g/dL Albumin 3.5 (3.4-5.0) g/dL Globulin 3.2 (2.3-3.5) g/dL Albumin/Globulin Ratio 1.1 L (1.2-2.2) 05/23/19 Range/Units 12:52 WBC (4.5-11.0) K/uL RBC (4.30-5.90) M/uL Hgb (12.0-15.0) g/dL Hct (40.0-54.0) % MCV (80-98) fL MCH (27-31) pg MCHC (32-36) % Plt Count (150-400) K/uL Neut % (Auto) (36-66) % Lymph % (Auto) (24-44) % [place] % (Auto) (2-6) % Eos % (Auto) (2-4) % Baso % (Auto) (0-1) % Sodium (140-148) mmol/L Potassium (3.6-5.2) mmol/L Chloride (100-108) mmol/L Carbon Dioxide (21-32) mmol/L Anion Gap (5.0-14.0) mmol/L BUN (7-18) mg/dL Creatinine (0.8-1.3) mg/dL Est Cr Clr Drug Dosing mL/min Estimated GFR (MDRD) (>60) Glucose (74-106) mg/dL Calcium (8.5-10.1) mg/dL Total Bilirubin (0.2-1.0) mg/dL AST (15-37) U/L ALT (12-78) U/L Alkaline Phosphatase (46-116) U/L Troponin I 0.074 H* (0.000-0.056) ng/mL Total Protein (6.4-8.2) g/dL Albumin (3.4-5.0) g/dL Globulin (2.3-3.5) g/dL Albumin/Globulin Ratio (1.2-2.2) Result Diagrams: 05/23/19 11:19 05/23/19 11:19 Sepsis Event Note - Evaluation Sepsis Screening Result: No Definite Risk - Focused Exam Vital Signs: Vital Signs Temp Pulse Resp BP Pulse Ox 05/23/19 14:06 63 13 153/86 H 95 05/23/19 13:06 68 13 172/89 H 95 05/23/19 12:21 83 13 151/95 H 98 05/23/19 11:29 76 20 145/91 H 97 05/23/19 11:02 96 F 78 16 145/77 H 99 05/23/19 11:01 96 F 78 16 145/77 H 99 Date Exam was Performed: 05/23/19 Time Exam was Performed: 17:12 *Q Meaningful Use (ADM) - VTE Risk Assess *Q Each Risk Factor Represents 1 Point: None Total Score 1 Point Risk Factors: 0 Each Risk Factor Represents 2 Points: Age 60 - 74 Years Total Score 2 Point Risk Factors: 2 Each Risk Factor Represents 3 Points: None Total Score 3 Point Risk Factors: 0 Each Risk Factor Represents 5 Points: None Total Score 5 Point Risk Factors: 0 Venous Thromboembolism Risk Factor Score *Q: 2 Problem List Initiated/Reviewed/Updated: Yes Orders Last 24hrs: Active Orders 24 hr Category Date Time Status Patient Status Manage Transfer [TRANSFER] Routine ADT 05/23/19 15:02 Ordered Cardiac Monitoring [RC] .As Directed Care 05/23/19 13:49 Active EKG Documentation Completion [RC] ASDIRECTED Care 05/23/19 11:09 Active Orthostatic Vital Signs [RC] ASDIRECTED Care 05/23/19 11:08 Active UA W/MICROSCOPIC [URIN] Urgent Lab 05/23/19 11:07 Ordered Sodium Chloride 0.9% [Normal Saline] 1,000 ml Med 05/23/19 11:45 Active IV ASDIRECTED Sodium Chloride 0.9% [Normal Saline] 1,000 ml Med 05/23/19 11:45 Active IV ASDIRECTED Resuscitation Status Routine Resus Stat 05/23/19 15:06 Ordered EKG 12 Lead [EK] Routine Ther 05/23/19 11:09 Ordered Medication Orders Sodium Chloride (Normal Saline) 1,000 mls @ 999 mls/hr IV ASDIRECTED [facility] Last Admin: 05/23/19 12:17 Dose: 999 mls/hr Sodium Chloride (Normal Saline) 1,000 mls @ 999 mls/hr IV ASDIRECTED [facility] Last Admin: 05/23/19 13:26 Dose: 999 mls/hr Assessment/Plan Comment:: ASSESSMENT AND PLAN SYNCOPAL EPISODE-occurred abruptly this morning after he got out of a chair. No preceding symptoms and no history of significant cardiac disease. Did occur just an hour and 1 1/2 to 2 hours after he had taken his morning medications. Possible vagal episode versus orthostasis. -Observation admission -Cardiac monitoring -Orthostatic vital signs MILD ELEVATION IN TROPONIN-likely demand ischemia in the setting of a syncopal episode. No prior history of coronary artery disease and no symptoms of chest pain or pressure. Initial troponin modestly elevated, follow-up after 2 hours slightly decreased. -Serial troponin levels -Outpatient exercise Myoview study RECURRENT MIGRAINE HEADACHES -Continue outpatient management MAINTENANCE ISSUES -DVT prophylaxis; Lovenox 40 mg subcu daily -GI prophylaxis; not indicated -[place] catheter; not indicated -Nutrition; regular diet -Nicotine dependence; not required CODE STATUS-FULL CODE ADMISSION STATUS-this patient will be admitted to observation status, expect no more than a one night hospital stay for evaluation and management of problems as outlined above. DISPOSITION-anticipate discharge to home after the hospital stay. PRIMARY CARE PROVIDER-Drs. Metzger - Mortality Measure Prognosis:: Good
[2019-05-23] MEDS ORDERED: Ondansetron 4 MG/2 ML SDV IV PRN (17:20)
[2019-05-23] MEDS ORDERED: Acetaminophen 325 MG Tab PO PRN (17:20)
[2019-05-23] MEDS ORDERED: Non-Formulary Medication 1 Each (Rizatriptan Benzoate [Rizatriptan] 5 MG) PO PRN (17:20)
[2019-05-23] MEDS ORDERED: Polyethylene Glycol 3350 Powder 17 GM Packet PO PRN (17:20)
[2019-05-23] MEDS ORDERED: Sodium Chloride 0.9% 10 ML Syringe FLUSH PRN (17:20)
[2019-05-23] MEDS: Enoxaparin 40 MG/0.4 ML Syringe SUBCUT SCH (17:59)
[2019-05-23] MEDS: Rizatriptan 10 MG Tab.DIS PO PRN (18:19)
[2019-05-23] MEDS ORDERED: Amitriptyline 25 MG Tab PO SCH (21:00)
[2019-05-23] MEDS: predniSONE 20 MG Tab PO SCH (22:02)
[2019-05-23] MEDS: oxyCODONE 5 MG Tab PO PRN (22:02)
[2019-05-23] MEDS: Carvedilol 6.25 MG Tab PO SCH (22:03)
[2019-05-24] MEDS: predniSONE 20 MG Tab PO SCH ×2 (08:01→17:37)
[2019-05-24] MEDS: Carvedilol 6.25 MG Tab PO SCH ×2 (08:01→21:28)
[2019-05-24] MEDS ORDERED: Lisinopril 10 MG Tab PO SCH (09:00)
[2019-05-24] MEDS ORDERED: amLODIPine 5 MG Tab PO SCH (09:00)
[2019-05-24] MEDS: oxyCODONE 5 MG Tab PO PRN ×2 (11:03→21:28)
[2019-05-24] MEDS: Rizatriptan 10 MG Tab.DIS PO PRN (11:04)
--- NOTE | 2019-05-24 11:51 | CRLCR ---
INDICATION: SYNCOPE ,TACHYCARDIA, PRIOR CHEST X-RAY DONE 12-16-18 TECHNIQUE: Chest 2 views. COMPARISON: 12/16/17 FINDINGS: Cardiovascular and mediastinum: Heart size and vasculature are normal in caliber and appearance. Mediastinum is within normal limits. Lungs and pleural spaces: Lungs are clear. No sign of infiltrate or mass. No sign of pleural effusion. No pneumothorax. Bones and soft tissues: No significant findings. IMPRESSION: Unremarkable chest. Dictated by: Asad Pearson MD @ 05/24/2019 11:48:41 (Electronically Signed)
--- NOTE | 2019-05-24 15:32 | PCM.PN ---
- General Info Date of Service: 05/24/19 Subjective Update: Mr. Matos is had no further syncopal episodes since admission and also denies any symptoms of chest pain or pressure. He is noted to have sinus tachycardia with heart rates into the 130s and 40s when he is active, blood pressures are lower with activity into the 90s. He feels somewhat unsteady with this but denies significant lightheadedness or near syncope. Troponin levels have remained modestly elevated, not significantly increased from admission. He denies any recent symptoms of shortness of breath. Functional Status: Reports: Tolerating Diet, Ambulating, Urinating - Review of Systems General: Reports: Weakness. Denies: Fever, Chills Pulmonary: Reports: No Symptoms Cardiovascular: Reports: Lightheadedness. Denies: Chest Pain, Palpitations, Dyspnea on Exertion, Orthopnea, PND, Edema Gastrointestinal: Reports: No Symptoms - Patient Data Vitals - Most Recent: Last Vital Signs Temp 97.6 F 05/24/19 08:00 Pulse 88 05/24/19 14:00 Resp 14 05/24/19 08:00 BP 129/82 05/24/19 08:03 Pulse Ox 96 05/24/19 08:00 Orthostatic Blood Pressure [ 97/73 Standing] Orthostatic Blood Pressure [ 137/83 Sitting] Orthostatic Blood Pressure [ 142/91 Supine] Weight - Most Recent: 159 lb 3.2 oz I&O - Last 24 Hours: Intake & Output 05/24/19 05/24/19 05/24/19 06:59 14:59 22:59 Intake Total 720 Output Total 475 1100 Balance -475 -380 Lab Results Last 24 Hours: Laboratory Results - last 24 hr 05/23/19 05/24/19 05/24/19 Range/Units 20:06 05:58 05:58 WBC 7.6 (4.5-11.0) K/uL RBC 4.72 (4.30-5.90) M/uL Hgb 13.7 (12.0-15.0) g/dL Hct 40.7 (40.0-54.0) % MCV 86 (80-98) fL MCH 29 (27-31) pg MCHC 34 (32-36) % Plt Count 234 (150-400) K/uL Neut % (Auto) 85 H (36-66) % Lymph % (Auto) 13 L (24-44) % [place] % (Auto) 1 L (2-6) % Eos % (Auto) 0 L (2-4) % Baso % (Auto) 0 (0-1) % Sodium 138 L (140-148) mmol/L Potassium 4.1 (3.6-5.2) mmol/L Chloride 105 (100-108) mmol/L Carbon Dioxide 25 (21-32) mmol/L Anion Gap 12.1 (5.0-14.0) mmol/L BUN 18 (7-18) mg/dL Creatinine 1.3 (0.8-1.3) mg/dL Est Cr Clr Drug Dosing 58.63 mL/min Estimated GFR (MDRD) 56 L (>60) Glucose 113 H (74-106) mg/dL Calcium 8.9 (8.5-10.1) mg/dL Magnesium 2.0 (1.8-2.4) mg/dL Troponin I 0.065 H* 0.082 H* (0.000-0.056) ng/mL NT-Pro-B Natriuret Pep (5-125) pg/mL TSH, Ultra Sensitive (0.358-3.740) uIU/mL 05/24/19 05/24/19 Range/Units 10:56 10:59 WBC (4.5-11.0) K/uL RBC (4.30-5.90) M/uL Hgb (12.0-15.0) g/dL Hct (40.0-54.0) % MCV (80-98) fL MCH (27-31) pg MCHC (32-36) % Plt Count (150-400) K/uL Neut % (Auto) (36-66) % Lymph % (Auto) (24-44) % [place] % (Auto) (2-6) % Eos % (Auto) (2-4) % Baso % (Auto) (0-1) % Sodium (140-148) mmol/L Potassium (3.6-5.2) mmol/L Chloride (100-108) mmol/L Carbon Dioxide (21-32) mmol/L Anion Gap (5.0-14.0) mmol/L BUN (7-18) mg/dL Creatinine (0.8-1.3) mg/dL Est Cr Clr Drug Dosing mL/min Estimated GFR (MDRD) (>60) Glucose (74-106) mg/dL Calcium (8.5-10.1) mg/dL Magnesium (1.8-2.4) mg/dL Troponin I (0.000-0.056) ng/mL NT-Pro-B Natriuret Pep 1228 H (5-125) pg/mL TSH, Ultra Sensitive 0.634 (0.358-3.740) uIU/mL Med Orders - Current: Current Medications Acetaminophen (Tylenol) 650 mg PO Q4H PRN PRN Reason: Pain (Mild 1-3)/fever Last Admin: 05/23/19 18:01 Dose: 650 mg Amitriptyline HCl (Elavil) 100 mg PO BEDTIME [facility] Last Admin: 05/23/19 22:02 Dose: 100 mg Carvedilol (Coreg) 6.25 mg PO BID [facility] Last Admin: 05/24/19 08:01 Dose: 6.25 mg Enoxaparin Sodium (Lovenox) 40 mg SUBCUT Q24H [facility] Last Admin: 05/23/19 17:59 Dose: 40 mg Ondansetron HCl (Zofran) 4 mg IV Q4H PRN PRN Reason: Nausea/Vomiting Oxycodone HCl (Oxycodone) 5 mg PO Q4H PRN PRN Reason: Pain Last Admin: 05/24/19 11:03 Dose: 5 mg Polyethylene Glycol (Miralax) 17 gm PO DAILY PRN PRN Reason: Constipation Prednisone (Prednisone) 20 mg PO BIDMEALS [facility] Last Admin: 05/24/19 08:01 Dose: 20 mg Rizatriptan Benzoate (Maxalt Assistant Spa Manager) 5 mg PO DAILY PRN PRN Reason: HEADACHE Last Admin: 05/24/19 11:04 Dose: 5 mg Sodium Chloride (Saline Flush) 10 ml FLUSH ASDIRECTED PRN PRN Reason: Keep Vein Open Discontinued Medications Amlodipine Besylate (Norvasc) 5 mg PO DAILY [facility] Last Admin: 05/24/19 08:02 Dose: 5 mg Diphenhydramine HCl (Benadryl) 50 mg IVPUSH ONETIME ONE Stop: 05/23/19 11:38 Last Admin: 05/23/19 12:19 Dose: 50 mg Hydromorphone HCl (Dilaudid) 1 mg IVPUSH ONETIME ONE Stop: 05/23/19 12:54 Last Admin: 05/23/19 13:05 Dose: 1 mg Sodium Chloride (Normal Saline) 1,000 mls @ 999 mls/hr IV ASDIRECTED [facility] Last Admin: 05/23/19 12:17 Dose: 999 mls/hr Sodium Chloride (Normal Saline) 1,000 mls @ 999 mls/hr IV ASDIRECTED [facility] Last Admin: 05/23/19 13:26 Dose: 999 mls/hr Ketorolac Tromethamine (Toradol) 30 mg IVPUSH ONETIME ONE Stop: 05/23/19 11:38 Last Admin: 05/23/19 12:17 Dose: 30 mg Lisinopril (Prinivil) 10 mg PO DAILY [facility] Last Admin: 05/24/19 08:03 Dose: 10 mg Prochlorperazine Edisylate (Compazine) 10 mg IVPUSH ONETIME ONE Stop: 05/23/19 11:38 Last Admin: 05/23/19 12:19 Dose: 10 mg - Exam General: Alert, Oriented, Cooperative, Mild Distress Lungs: Clear to Auscultation, Normal Respiratory Effort Cardiovascular: Regular Rate, Regular Rhythm, No Murmurs GI/Abdominal Exam: Soft, Non-Tender, No Organomegaly, No Distention Extremities: Non-Tender, No Pedal Edema Sepsis Event Note - Evaluation Sepsis Screening Result: No Definite Risk - Focused Exam Vital Signs: Vital Signs Temp Pulse Pulse Resp BP BP Pulse Ox 05/24/19 14:00 88 05/24/19 12:00 91 05/24/19 08:03 129/82 05/24/19 08:02 129/82 05/24/19 08:01 75 122/72 05/24/19 08:00 97.6 F 88 14 129/82 96 05/24/19 06:00 10 L 122/72 96 05/24/19 04:00 12 134/86 96 Date Exam was Performed: 05/24/19 Time Exam was Performed: 15:32 - Problem List Review Problem List Initiated/Reviewed/Updated: Yes - My Orders Last 24 Hours: My Active Orders 05/23/19 15:06 Resuscitation Status Routine 05/23/19 17:20 Ambulate [RC] QID Cardiac Monitoring [RC] Q6H Height and Weight [RC] DAILY Intake and Output [RC] QSHIFT Notify Provider Vital Signs [RC] ASDIRECTED Orthostatic Vital Signs [RC] Q6H Oxygen Therapy [RC] PRN Up With Assistance [RC] ASDIRECTED Up to Chair [RC] QID Vital Signs [RC] Q2H Acetaminophen [Tylenol] 650 mg PO Q4H PRN Ondansetron [Zofran] 4 mg IV Q4H PRN Polyethylene Glycol 3350 [MiraLAX] 17 gm PO DAILY PRN Sodium Chloride 0.9% [Saline Flush] 10 ml FLUSH ASDIRECTED PRN Saline Lock Insert [OM.PC] Routine 05/23/19 17:30 Rizatriptan [Maxalt CONSUMER SAFETY INSPECTOR] 5 mg PO DAILY PRN 05/23/19 18:30 Enoxaparin [Lovenox] 40 mg SUBCUT Q24H 05/23/19 20:00 predniSONE 20 mg PO BIDMEALS 05/23/19 21:00 Amitriptyline [Elavil] 100 mg PO BEDTIME carvediloL [Coreg] 6.25 mg PO BID 05/23/19 21:34 oxyCODONE 5 mg PO Q4H PRN 05/24/19 15:24 Ang Chest [CT] Stat Echo Comp wo Cont [US] Stat 05/24/19 15:27 Patient Status [ADT] Routine - Plan Plan:: ASSESSMENT AND PLAN SYNCOPAL EPISODE-no further syncopal episodes, he is noted to have sinus tachycardia and lower blood pressures with even modest activity. Chest x-ray was obtained this morning and that is clear. He had an echocardiogram obtained on May 02 that showed an ejection fraction of 50 to 55%. He denies recent exertional shortness of breath or chest pain. TSH was obtained and was within normal range. BNP elevated at 1200. -Convert to inpatient status -Repeat echocardiogram to reassess left ventricular function -CT angiogram of the chest -Cardiac monitoring -Orthostatic vital signs -Outpatient exercise Myoview study MILD ELEVATION IN TROPONIN-likely demand ischemia in the setting of a syncopal episode. No prior history of coronary artery disease and no symptoms of chest pain or pressure. Troponin levels have remained modestly elevated with no significant increase thus far. -Serial troponin levels -Outpatient exercise Myoview study RECURRENT MIGRAINE HEADACHES -Continue outpatient management MAINTENANCE ISSUES -DVT prophylaxis; Lovenox 40 mg subcu daily -GI prophylaxis; not indicated -Medina catheter; not indicated -Nutrition; regular diet -Nicotine dependence; not required CODE STATUS-FULL CODE ADMISSION STATUS-this patient will be admitted to observation status, expect no more than a one night hospital stay for evaluation and management of problems as outlined above. DISPOSITION-anticipate discharge to home after the hospital stay. PRIMARY CARE PROVIDER-Drs. Metzger
[2019-05-24] MEDS: Enoxaparin 40 MG/0.4 ML Syringe SUBCUT SCH (17:37)
[2019-05-25] MEDS: Carvedilol 6.25 MG Tab PO SCH (09:20)
[2019-05-25] MEDS: predniSONE 20 MG Tab PO SCH (09:20)
[2019-05-25 09:21] VITALS: BP 119/58
--- NOTE | 2019-05-25 10:39 | PCM.DCSUM1 ---
Discharge Summary - Hospital Course Brief History: 63-year-old male with history of cardiomyopathy, rheumatoid arthritis, essential hypertension who presented after an episode of syncope. He was admitted for observation and expedited work-up. Diagnosis: Stroke: No - Discharge Data Discharge Date: 05/25/19 Discharge Disposition: Home, Self-Care 01 Condition: Good - Referral to Home Health Primary Care Physician: Roman Metzger MD - Discharge Diagnosis/Problem(s) (1) Orthostatic syncope SNOMED Code(s): 389961208 ICD Code: I95.1 - ORTHOSTATIC HYPOTENSION Status: Acute (2) Elevated troponin SNOMED Code(s): 318787500, 732816893, 570228466 ICD Code: R79.89 - OTHER SPECIFIED ABNORMAL FINDINGS OF BLOOD CHEMISTRY Status: Acute (3) HTN (hypertension) SNOMED Code(s): 14328791 ICD Code: I10 - ESSENTIAL (PRIMARY) HYPERTENSION Status: Chronic Qualifiers: Hypertension type: essential hypertension Qualified Code(s): I10 - Essential (primary) hypertension - Patient Summary/Data Hospital Course: Kenan presented to the emergency room after an episode of syncope. Work-up in the emergency room was fairly unremarkable other than a mildly elevated troponin level. He was admitted to the hospital for serial enzymes and expedited work-up. Overnight following admission his troponin level stayed essentially stable with a very mild elevation. While getting up the patient was noted to have a significant rise in his heart rate into the 130s and 140s. He was mildly dizzy with the fast heart rhythm. An orthostatic type picture was suspected and his amlodipine and lisinopril were both held. Throughout the day there were no acute issues other than some mild tachycardia with standing. By the morning of discharge which is 2 days after admission the patient is feeling much better. When he stands up his heart rate only rises a few points rather than jumping all the way into the 140s. He has not had any chest pain or shortness of breath. He does not feel dizzy. He walked up and down the nascimento without any symptoms. Blood pressures have been stable without the use of amlodipine or lisinopril. I suspect the issue was an orthostatic type picture because of his calcium channel colton. We did elect to hold both the calcium channel colton and the afterload head kiln operator. He reports that the calcium channel colton was used to help with ray nods phenomenon. If his blood pressure does rise after the medications are held I would restart lisinopril and titrate this. I think that it would be advisable to avoid calcium channel blockers given his orthostatic symptoms and tachycardia. He will be following up in a few days to have his blood pressure rechecked. - Patient Instructions Diet: Regular Diet as Tolerated Activity: As Tolerated Showering/Bathing: May Shower Notify Provider of: Fever, Nausea and/or Vomiting Other/Special Instructions: 1. Stop taking amlodipine. I am worried this medication is causing a drop in blood pressure when you stand up leading to your symptoms. 2. Do not take lisinopril until your follow up with Dr Metzger. If your blood pressure is above goal this medication should be the first to be restarted. 3. Continue your other medications as prescribed. 4. Follow up with Dr Metzger next week for blood pressure check - Discharge Plan *PRESCRIPTION DRUG MONITORING PROGRAM REVIEWED*: Not Applicable *COPY OF PRESCRIPTION DRUG MONITORING REPORT IN PATIENT EVA: Not Applicable Home Medications: Home Meds Amitriptyline [Elavil] 100 mg PO BEDTIME 03/08/13 [History] Ondansetron [Zofran ODT] 8 mg PO Q6H PRN 09/13/14 [History] Rizatriptan Benzoate [Rizatriptan] 5 mg PO ASDIRECTED PRN 09/13/14 [History] Lisinopril 10 mg PO DAILY 10/16/15 [History] carvediloL [Carvedilol] 6.25 mg PO BID 10/16/15 [History] EPINEPHrine [Epinephrine] 0.3 mg IJ ONETIME PRN #2 auto.injct 12/03/18 [Rx] Oxygen Therapy Mode: Room Air Patient Handouts: Postural Orthostatic Tachycardia Syndrome Referrals: Roman Metzger MD [Primary Care Provider] - (5-7 days - f/u hospital stay for orthostatic syncope, recheck BP) - Discharge Summary/Plan Comment DC Time >30 min.: No - Patient Data Vitals - Most Recent: Last Vital Signs Temp 36.5 C 05/25/19 00:00 Pulse 83 05/25/19 09:20 Resp 12 05/25/19 06:00 BP 119/58 L 05/25/19 09:20 Pulse Ox 95 05/25/19 06:00 Orthostatic Blood Pressure [ 122/81 Standing] Orthostatic Blood Pressure [ 128/86 Sitting] Orthostatic Blood Pressure [ 129/77 Supine] Weight - Most Recent: 72.212 kg I&O - Last 24 hours: Intake & Output 05/24/19 05/25/19 05/25/19 22:59 06:59 14:59 Output Total 375 325 Balance -375 -325 Lab Results - Last 24 hrs: Laboratory Results - last 24 hr 05/24/19 05/24/19 05/25/19 Range/Units 10:56 10:59 04:20 WBC 19.2 H (4.5-11.0) K/uL RBC 4.55 (4.30-5.90) M/uL Hgb 13.3 (12.0-15.0) g/dL Hct 39.4 L (40.0-54.0) % MCV 87 (80-98) fL MCH 29 (27-31) pg MCHC 34 (32-36) % Plt Count 277 (150-400) K/uL Neut % (Auto) 89 H (36-66) % Lymph % (Auto) 6 L (24-44) % [place] % (Auto) 5 (2-6) % Eos % (Auto) 0 L (2-4) % Baso % (Auto) 0 (0-1) % Sodium (140-148) mmol/L Potassium (3.6-5.2) mmol/L Chloride (100-108) mmol/L Carbon Dioxide (21-32) mmol/L Anion Gap (5.0-14.0) mmol/L BUN (7-18) mg/dL Creatinine (0.8-1.3) mg/dL Est Cr Clr Drug Dosing mL/min Estimated GFR (MDRD) (>60) Glucose (74-106) mg/dL Calcium (8.5-10.1) mg/dL Magnesium (1.8-2.4) mg/dL NT-Pro-B Natriuret Pep 1228 H (5-125) pg/mL TSH, Ultra Sensitive 0.634 (0.358-3.740) uIU/mL 05/25/19 Range/Units 04:20 WBC (4.5-11.0) K/uL RBC (4.30-5.90) M/uL Hgb (12.0-15.0) g/dL Hct (40.0-54.0) % MCV (80-98) fL MCH (27-31) pg MCHC (32-36) % Plt Count (150-400) K/uL Neut % (Auto) (36-66) % Lymph % (Auto) (24-44) % [place] % (Auto) (2-6) % Eos % (Auto) (2-4) % Baso % (Auto) (0-1) % Sodium 138 L (140-148) mmol/L Potassium 4.0 (3.6-5.2) mmol/L Chloride 106 (100-108) mmol/L Carbon Dioxide 24 (21-32) mmol/L Anion Gap 12.0 (5.0-14.0) mmol/L BUN 25 H (7-18) mg/dL Creatinine 1.3 (0.8-1.3) mg/dL Est Cr Clr Drug Dosing 58.63 mL/min Estimated GFR (MDRD) 56 L (>60) Glucose 117 H (74-106) mg/dL Calcium 8.9 (8.5-10.1) mg/dL Magnesium 2.0 (1.8-2.4) mg/dL NT-Pro-B Natriuret Pep (5-125) pg/mL TSH, Ultra Sensitive (0.358-3.740) uIU/mL Med Orders - Current: Current Medications Acetaminophen (Tylenol) 650 mg PO Q4H PRN PRN Reason: Pain (Mild 1-3)/fever Last Admin: 05/23/19 18:01 Dose: 650 mg Amitriptyline HCl (Elavil) 100 mg PO BEDTIME [facility] Last Admin: 05/24/19 21:26 Dose: 100 mg Carvedilol (Coreg) 6.25 mg PO BID [facility] Last Admin: 05/25/19 09:20 Dose: 6.25 mg Enoxaparin Sodium (Lovenox) 40 mg SUBCUT Q24H [facility] Last Admin: 05/24/19 17:37 Dose: 40 mg Ondansetron HCl (Zofran) 4 mg IV Q4H PRN PRN Reason: Nausea/Vomiting Last Admin: 05/25/19 00:10 Dose: 4 mg Oxycodone HCl (Oxycodone) 5 mg PO Q4H PRN PRN Reason: Pain Last Admin: 05/24/19 21:28 Dose: 5 mg Polyethylene Glycol (Miralax) 17 gm PO DAILY PRN PRN Reason: Constipation Rizatriptan Benzoate (Maxalt Casino Cashier Manager) 5 mg PO DAILY PRN PRN Reason: HEADACHE Last Admin: 05/24/19 11:04 Dose: 5 mg Sodium Chloride (Saline Flush) 10 ml FLUSH ASDIRECTED PRN PRN Reason: Keep Vein Open Discontinued Medications Amlodipine Besylate (Norvasc) 5 mg PO DAILY [facility] Last Admin: 05/24/19 08:02 Dose: 5 mg Diphenhydramine HCl (Benadryl) 50 mg IVPUSH ONETIME ONE Stop: 05/23/19 11:38 Last Admin: 05/23/19 12:19 Dose: 50 mg Hydromorphone HCl (Dilaudid) 1 mg IVPUSH ONETIME ONE Stop: 05/23/19 12:54 Last Admin: 05/23/19 13:05 Dose: 1 mg Sodium Chloride (Normal Saline) 1,000 mls @ 999 mls/hr IV ASDIRECTED [facility] Last Admin: 05/23/19 12:17 Dose: 999 mls/hr Sodium Chloride (Normal Saline) 1,000 mls @ 999 mls/hr IV ASDIRECTED [facility] Last Admin: 05/23/19 13:26 Dose: 999 mls/hr Ketorolac Tromethamine (Toradol) 30 mg IVPUSH ONETIME ONE Stop: 05/23/19 11:38 Last Admin: 05/23/19 12:17 Dose: 30 mg Lisinopril (Prinivil) 10 mg PO DAILY [facility] Last Admin: 05/24/19 08:03 Dose: 10 mg Prednisone (Prednisone) 20 mg PO BIDMEALS [facility] Last Admin: 05/25/19 09:20 Dose: 20 mg Prochlorperazine Edisylate (Compazine) 10 mg IVPUSH ONETIME ONE Stop: 05/23/19 11:38 Last Admin: 05/23/19 12:19 Dose: 10 mg - Exam Quality Assessment: Denies: Supplemental Oxygen General: Reports: Alert, Oriented, Cooperative, No Acute Distress Lungs: Reports: Normal Respiratory Effort Cardiovascular: Reports: Regular Rate, Regular Rhythm GI/Abdominal Exam: Soft, No Distention Extremities: No Pedal Edema
[2019-05-25 10:54] VITALS: PULSE 96
== END 2019-05-25 11:30 | disposition home or self-care (01) | DRG 312 ==
LOC: JP.ED 10:56 → JP.ICU 15:02 → OBSVTOIN 05-24 15:28 → UNDODISOB 05-25 11:30
PROVIDERS: ADMIT Hospitalist; ATTEND Internal Medicine
DX: I95.1 Orthostatic hypotension (principal); R79.89 Other specified abnormal findings of blood chemistry; M19.90 Unspecified osteoarthritis, unspecified site; I10 Essential (primary) hypertension; I25.10 Atherosclerotic heart disease of native coronary artery without angina pectoris; G89.29 Other chronic pain; M54.9 Dorsalgia, unspecified; F41.9 Anxiety disorder, unspecified; F32.9 Major depressive disorder, single episode, unspecified; F43.10 Post-traumatic stress disorder, unspecified; G43.909 Migraine, unspecified, not intractable, without status migrainosus; Z91.013 Allergy to seafood; Z91.030 Bee allergy status; Z91.041 Radiographic dye allergy status; Z91.018 Allergy to other foods; Z88.8 Allergy status to other drugs, medicaments and biological substances; Z79.52 Long term (current) use of systemic steroids; Z79.899 Other long term (current) drug therapy; Z98.49 Cataract extraction status, unspecified eye; Z87.442 Personal history of urinary calculi
CPT/HCPCS: 36415; 70450; 70450-26; 71046; 73030-26-LT; 73030-LT; 73080-26-LT; 73080-LT; 80048; 80053; 83735; 83880; 84443; 84484; 85025; 93005; 96361; 96374; 96375; 99285-25; A9270-GY; J0780; J1170; J1200; J1650; J1885; J2405; J7030

== ENCOUNTER 2019-06-03 19:11 | Emergency (ER) | payer MEDICAID ==
[2019-06-03 19:59] VITALS: BP 141/85; PULSE 110
--- NOTE | 2019-06-03 20:10 | EDM.PDOC ---
ED HPI GENERAL MEDICAL PROBLEM - General Chief Complaint: Lower Extremity Injury/Pain Stated Complaint: POSSIBLE BROKEN LEFT BIG TOE Time Seen by Provider: 06/03/19 20:00 Source of Information: Reports: Patient History Limitations: Reports: No Limitations - History of Present Illness INITIAL COMMENTS - FREE TEXT/NARRATIVE: 63 yo male stubbed his L great toe this morning. Decided tonight to come to the ER. No other complaints. Has not discussed with his doctor. Onset: Today Onset Date: 06/03/19 Onset Time: 08:00 Duration: Hour(s):, Constant Location: Reports: Lower Extremity, Left Quality: Reports: Ache Severity: Mild Improves with: Reports: Rest Worsens with: Reports: Movement Context: Reports: Trauma Associated Symptoms: Reports: No Other Symptoms Treatments PRODUCTION ENGINEER: Reports: Other (see below) Other Treatments PRODUCTION ENGINEER: none Left Toe-[place]ux Pain Score (Numeric/FACES): 8 - Related Data Allergies Allergy/AdvReac Type Severity Reaction Status Date / Time bee venom protein (honey bee) Allergy Severe Anaphylactic Verified 05/23/19 17: 31 Shock iodine Allergy Severe Anaphylactic Verified 05/19/19 09:55 Shock shellfish derived Allergy Severe Anaphylactic Verified 05/19/19 09:55 Shock gabapentin Allergy Cannot Verified 05/19/19 09:55 Remember IV contrast Allergy Severe Anaphylactic Uncoded 05/19/19 09:55 Shock tomato Allergy Hives Uncoded 05/19/19 09:55 Home Meds: Home Meds Amitriptyline [Elavil] 100 mg PO BEDTIME 03/08/13 [History] Ondansetron [Zofran ODT] 8 mg PO Q6H PRN 09/13/14 [History] Rizatriptan Benzoate [Rizatriptan] 5 mg PO ASDIRECTED PRN 09/13/14 [History] carvediloL [Carvedilol] 6.25 mg PO BID 10/16/15 [History] EPINEPHrine [Epinephrine] 0.3 mg IJ ONETIME PRN #2 auto.injct 12/03/18 [Rx] traMADol [Ultram] 50 mg PO Q8H PRN 06/03/19 [History] Past Medical History HEENT History: Reports: Cataract, Impaired Vision Cardiovascular History: Reports: CAD, Hypertension, Other (See Below) Other Cardiovascular History: blood infection weakened heart wall Gastrointestinal History: Reports: GI Bleed Genitourinary History: Reports: Renal Calculus Musculoskeletal History: Reports: Back Pain, Chronic, Osteoarthritis, Other ( See Below) Other Musculoskeletal History: L knee injury 11/12/18 Neurological History: Reports: Concussion, Migraines Psychiatric History: Reports: Anxiety, Depression, PTSD, Other (See Below) Other Psychiatric History: pt has a support dog for ptsd/anxiety Dermatologic History: Reports: Cellulitis - Infectious Disease History Infectious Disease History: Reports: Chicken Pox, Mumps - Past Surgical History HEENT Surgical History: Reports: Oral Surgery, Tonsillectomy GI Surgical History: Reports: Colonoscopy, EGD Male Surgical History: Reports: Lithotripsy (ESWL) Musculoskeletal Surgical History: Reports: Other (See Below) Other Musculoskeletal Surgeries/Procedures:: ulnar nerve transport x4- left side Social & Family History - Family History Family Medical History: Noncontributory - Tobacco Use Smoking Status *Q: Never Smoker Second Hand Smoke Exposure: No - Caffeine Use Caffeine Use: Reports: Soda - Recreational Drug Use Recreational Drug Use: No - Living Situation & Occupation Living situation: Reports: (lives with and two children in [place], [place].), with Spouse Occupation: Disabled Review of Systems - Review of Systems Review Of Systems: See Below Musculoskeletal: Reports: Foot Pain (L great toe pain) Skin: Reports: Bruising (L great toe) Neurological: Reports: No Symptoms ED EXAM, GENERAL - Physical Exam Exam: See Below Exam Limited By: No Limitations General Appearance: Alert, WD/WN, No Apparent Distress Extremities: Other (L great toe tender around the MT joint. No deformity. Skin intact.). No: Non-Tender Neurological: Alert, Oriented, CN II-XII Intact, Normal Cognition, No Motor/ Sensory Deficits Psychiatric: Normal Affect, Normal Mood Skin Exam: Warm, Dry, Intact, No Rash, Ecchymosis (MT jt of L great toe. ) Course - Vital Signs Last Recorded V/S: Last Vital Signs Temp 36.7 C 06/03/19 20:04 Pulse 110 H 06/03/19 20:04 Resp 18 06/03/19 20:04 BP 141/85 H 06/03/19 20:04 Pulse Ox 97 06/03/19 20:04 - Orders/Labs/Meds Orders: Active Orders 24 hr Category Date Time Status Toes Great Toe Lt TA [CR] Stat Exams 06/03/19 20:04 Taken - Radiology Interpretation Free Text/Narrative:: L great toe X-ray-neg Departure - Departure Time of Disposition: 20:33 Disposition: Home, Self-Care 01 Condition: Good Clinical Impression: Foot contusion Qualifiers: Encounter type: initial encounter Laterality: left Qualified Code(s): S90.32XA - Contusion of left foot, initial encounter - Discharge Information *PRESCRIPTION DRUG MONITORING PROGRAM REVIEWED*: No *COPY OF PRESCRIPTION DRUG MONITORING REPORT IN PATIENT EVA: No Instructions: Foot Contusion, [id number] Referrals: Roman Metzger MD [Primary Care Provider] - Forms: ED Department Discharge Additional Instructions: Acetaminophen as needed for pain relief. F/U with Dr. Metzger as needed. Sepsis Event Note - Evaluation Sepsis Screening Result: No Definite Risk - Focused Exam Vital Signs: Vital Signs Temp Pulse Resp BP Pulse Ox 06/03/19 20:04 36.7 C 110 H 18 141/85 H 97 06/03/19 19:57 36.7 C 110 H 18 141/85 H 97 Date Exam was Performed: 06/03/19 Time Exam was Performed: 20:33 - My Orders Last 24 Hours: My Active Orders 06/03/19 20:04 Toes Great Toe Lt TA [CR] Stat - Assessment/Plan Last 24 Hours: My Active Orders 06/03/19 20:04 Toes Great Toe Lt TA [CR] Stat
--- NOTE | 2019-06-03 20:42 | CRLCR ---
Indication: Injury Technique: Three views left 1st toe Comparison: Left foot radiograph November 14, 1999 Findings: Bones: Alignment is normal. No fractures or bone lesions. Joint spaces: Unremarkable. Soft tissues: Unremarkable. Impression: Negative. Dictated by Yu Hendricks MD @ Jun 03 2019 8:39PM Signed by Dr. Yu Hendricks @ Jun 03 2019 8:40PM
== END 2019-06-03 21:01 | disposition home or self-care (01) ==
LOC: JP.ED 19:11
DX: S90.32XA Contusion of left foot, initial encounter (principal); I10 Essential (primary) hypertension; F32.9 Major depressive disorder, single episode, unspecified; Z91.030 Bee allergy status; Z88.8 Allergy status to other drugs, medicaments and biological substances; Z91.018 Allergy to other foods; Z91.013 Allergy to seafood; Z91.041 Radiographic dye allergy status; Z79.899 Other long term (current) drug therapy; W22.8XXA Striking against or struck by other objects, initial encounter
CPT/HCPCS: 73660-TA; 99283-25

== ENCOUNTER 2019-06-22 15:14 | Emergency (ER) | payer MEDICAID ==
[2019-06-22 15:23] VITALS: BP 177/99; PULSE 86
[2019-06-22] MEDS ORDERED: Ketorolac 30 MG/ML SDV IVPUSH ONE (15:40)
[2019-06-22] MEDS ORDERED: HYDROmorphone 1 MG/ML Syringe IVPUSH ONE (15:40)
--- NOTE | 2019-06-22 15:42 | EDM.PDOC ---
ED HPI GENERAL MEDICAL PROBLEM - General Chief Complaint: Headache Stated Complaint: MEDICAL [facility]IA [facility] Time Seen by Provider: 06/22/19 15:25 Source of Information: Reports: Patient, EMS, Family History Limitations: Reports: No Limitations - History of Present Illness INITIAL COMMENTS - FREE TEXT/NARRATIVE: 63-year-old male with chronic recurring migraines and recently diagnosed vasovagal syncope was walking to the bathroom at home when he started developing a headache, and stumbled forward and hit his left forehead and cheek on the floor. He thinks he was out "briefly" and when he woke up he had a throbbing anterior migraine similar to past migraines. His family got scared and called the ambulance. Also nausea but no vomiting, he is very photophobic. He was recently hospitalized with syncope and migraine but was discharged. No shortness of breath or palpitations. Onset: Sudden Duration: Hour(s): (Within the last hour) Location: Reports: Head, Face Associated Symptoms: Reports: Confusion, Headaches. Denies: Nausea/Vomiting - Related Data Allergies Allergy/AdvReac Type Severity Reaction Status Date / Time bee venom protein (honey bee) Allergy Severe Anaphylactic Verified 05/23/19 17: 31 Shock iodine Allergy Severe Anaphylactic Verified 05/19/19 09:55 Shock shellfish derived Allergy Severe Anaphylactic Verified 05/19/19 09:55 Shock gabapentin Allergy Cannot Verified 05/19/19 09:55 Remember IV contrast Allergy Severe Anaphylactic Uncoded 05/19/19 09:55 Shock tomato Allergy Hives Uncoded 05/19/19 09:55 Home Meds: Home Meds Amitriptyline [Elavil] 100 mg PO BEDTIME 03/08/13 [History] Ondansetron [Zofran ODT] 8 mg PO Q6H PRN 09/13/14 [History] Rizatriptan Benzoate [Rizatriptan] 5 mg PO ASDIRECTED PRN 09/13/14 [History] carvediloL [Carvedilol] 6.25 mg PO BID 10/16/15 [History] EPINEPHrine [Epinephrine] 0.3 mg IJ ONETIME PRN #2 auto.injct 12/03/18 [Rx] traMADol [Ultram] 50 mg PO Q8H PRN 06/03/19 [History] Past Medical History HEENT History: Reports: Cataract, Impaired Vision Cardiovascular History: Reports: CAD, Hypertension, Other (See Below) Other Cardiovascular History: blood infection weakened heart wall Gastrointestinal History: Reports: GI Bleed Genitourinary History: Reports: Renal Calculus Musculoskeletal History: Reports: Back Pain, Chronic, Osteoarthritis, Other ( See Below) Other Musculoskeletal History: L knee injury 11/12/18 Neurological History: Reports: Concussion, Migraines Psychiatric History: Reports: Anxiety, Depression, PTSD, Other (See Below) Other Psychiatric History: pt has a support dog for ptsd/anxiety Dermatologic History: Reports: Cellulitis - Infectious Disease History Infectious Disease History: Reports: Chicken Pox, Mumps - Past Surgical History HEENT Surgical History: Reports: Oral Surgery, Tonsillectomy GI Surgical History: Reports: Colonoscopy, EGD Male Surgical History: Reports: Lithotripsy (ESWL) Musculoskeletal Surgical History: Reports: Other (See Below) Other Musculoskeletal Surgeries/Procedures:: ulnar nerve transport x4- left side Social & Family History - Family History Family Medical History: Noncontributory - Tobacco Use Smoking Status *Q: Never Smoker - Caffeine Use Caffeine Use: Reports: None - Recreational Drug Use Recreational Drug Use: No - Living Situation & Occupation Living situation: Reports: (lives with and two children in [facility]), with Spouse Occupation: Disabled ED ROS GENERAL - Review of Systems Review Of Systems: See Below Constitutional: Denies: Fever, Chills HEENT: Denies: Vision Change (Photophobia but no double vision or blurred vision ) Respiratory: Denies: Shortness of Breath Cardiovascular: Reports: Syncope. Denies: Chest Pain, Palpitations GI/Abdominal: Reports: Nausea. Denies: Abdominal Pain, Vomiting Skin: Reports: No Symptoms Neurological: Reports: Dizziness, Headache, Syncope Psychiatric: Reports: Anxiety ED EXAM, HEAD INJURY - Physical Exam Exam: See Below Exam Limited By: No Limitations General Appearance: Alert, Anxious, Mild Distress Head: Other (He does have some tenderness to palpation across the left eyebrow and left zygomatic area but there is no swelling, abrasion or bruising) Eyes: Bilateral Eye: EOMI, Normal Inspection, PERRL Throat/Mouth: Normal Inspection Neck: Non-Tender Respiratory: Lungs Clear Cardiovascular: Regular Rate, Rhythm Neurologic: No Motor/Sensory Deficits, Alert, Oriented x 3 Skin: Normal Color - [place] Coma Score Best Eye Response (Dionne): (4) Open Spontaneously Best Verbal Response (Dionne): (5) Oriented Best Motor Response ([place]): (6) Obeys Commands Course - Vital Signs Last Recorded V/S: Last Vital Signs Temp 97.5 F 06/22/19 15:20 Pulse 86 06/22/19 15:20 Resp 16 06/22/19 15:20 BP 177/99 H 06/22/19 15:20 Pulse Ox 100 06/22/19 15:20 - Orders/Labs/Meds Meds: Medications Discontinued Medications Generic Name Dose Route Start Last Admin Trade Name Torin PRN Reason Stop Dose Admin Diphenhydramine HCl 25 mg 06/22/19 16:42 06/22/19 16:44 Benadryl IVPUSH 06/22/19 16:43 25 mg ONETIME ONE Administration Diphenhydramine HCl Confirm 06/22/19 16:42 06/22/19 16:52 Benadryl Administered 06/22/19 16:43 Not Given Dose 50 mg .ROUTE .STK-MED ONE Hydromorphone HCl 1 mg 06/22/19 15:40 06/22/19 16:01 Dilaudid IVPUSH 06/22/19 15:41 1 mg ONETIME ONE Administration Ketorolac Tromethamine 30 mg 06/22/19 15:40 06/22/19 16:01 Toradol IVPUSH 06/22/19 15:41 30 mg ONETIME ONE Administration - Re-Assessments/Exams Free Text/Narrative Re-Assessment/Exam: 06/22/19 17:56 An IV was started and the patient was given 1 mg of IV Dilaudid and 30 mg of IV Toradol. He rested for 20 minutes and woke up feeling markedly better, 25 mg of IV Benadryl was given prior to discharge. He remained neurologically intact and his symptoms markedly improved. He can put cool compresses on to the left side of the face and forehead and continue his regular medications, returning if worsening at any time. Departure - Departure Time of Disposition: 16:53 Disposition: Home, Self-Care 01 Clinical Impression: Migraine Contusion of face Qualifiers: Encounter type: initial encounter Qualified Code(s): S00.83XA - Contusion of other part of head, initial encounter - Discharge Information Instructions: Facial or Scalp Contusion, [id number] Referrals: Roman Metzger MD [Primary Care Provider] - Forms: ED Department Discharge Care Plan Goals: Cool compresses to the injured areas may help, and continue your current medications as prescribed. Increase diet and activity as tolerated and consider rechecking in the next 2 to 3 days if not improving satisfactorily. Return sooner if worsening. Sepsis Event Note - Evaluation Sepsis Screening Result: No Definite Risk - Focused Exam Vital Signs: Vital Signs Temp Pulse Resp BP Pulse Ox 06/22/19 15:20 97.5 F 86 16 177/99 H 100 06/22/19 15:19 97.5 F 86 16 177/99 H 100 Date Exam was Performed: 06/22/19 Time Exam was Performed: 17:57
[2019-06-22] MEDS ORDERED: diphenhydrAMINE 50 MG/ML SDV ONE (16:42)
[2019-06-22] MEDS ORDERED: diphenhydrAMINE 50 MG/ML SDV IVPUSH ONE (16:42)
== END 2019-06-22 16:53 | disposition home or self-care (01) ==
LOC: JP.ED 15:14
DX: S00.83XA Contusion of other part of head, initial encounter (principal); G43.909 Migraine, unspecified, not intractable, without status migrainosus; I10 Essential (primary) hypertension; F32.9 Major depressive disorder, single episode, unspecified; Z88.8 Allergy status to other drugs, medicaments and biological substances; Z91.030 Bee allergy status; Z91.013 Allergy to seafood; Z91.041 Radiographic dye allergy status; Z91.018 Allergy to other foods; Z79.899 Other long term (current) drug therapy; W18.2XXA Fall in (into) shower or empty bathtub, initial encounter; Y93.01 Activity, walking, marching and hiking; Y92.002 Bathroom of unspecified non-institutional (private) residence as the place of occurrence of the external cause
CPT/HCPCS: 96374; 96375; 99284; J1170; J1200; J1885

== ENCOUNTER 2019-06-29 18:03 | Emergency (ER) | payer MEDICAID ==
[2019-06-29] MEDS ORDERED: diphenhydrAMINE 50 MG/ML SDV IVPUSH ONE (19:15)
[2019-06-29] MEDS ORDERED: Ketorolac 30 MG/ML SDV IVPUSH ONE (19:15)
[2019-06-29] MEDS ORDERED: Sodium Chloride 0.9% 10 ML Syringe FLUSH PRN (19:15)
[2019-06-29] MEDS ORDERED: Prochlorperazine 10 MG/2 ML SDV IVPUSH ONE (19:15)
[2019-06-29] MEDS ORDERED: Lactated Ringers 1,000 ML IV ONE (19:15)
--- NOTE | 2019-06-29 19:18 | EDM.PDOC ---
ED HPI GENERAL MEDICAL PROBLEM - General Chief Complaint: Headache Stated Complaint: MIGRAINE Time Seen by Provider: 06/29/19 19:11 Source of Information: Reports: Patient, Family, RN Notes Reviewed History Limitations: Reports: No Limitations - History of Present Illness INITIAL COMMENTS - FREE TEXT/NARRATIVE: 63-year-old gentleman presents emergency department today with migraine type headache, he states this is typical for him it is in the frontal portion he usually uses Maxalt to abort the headaches unfortunately it did not work today. He is nauseated and does have photophobia Left Posterior Headache Pain Score (Numeric/FACES): 9 - Related Data Allergies Allergy/AdvReac Type Severity Reaction Status Date / Time bee venom protein (honey bee) Allergy Severe Anaphylactic Verified 05/23/19 17: 31 Shock iodine Allergy Severe Anaphylactic Verified 05/19/19 09:55 Shock shellfish derived Allergy Severe Anaphylactic Verified 05/19/19 09:55 Shock gabapentin Allergy Cannot Verified 05/19/19 09:55 Remember IV contrast Allergy Severe Anaphylactic Uncoded 05/19/19 09:55 Shock tomato Allergy Hives Uncoded 05/19/19 09:55 Home Meds: Home Meds Amitriptyline [Elavil] 100 mg PO BEDTIME 03/08/13 [History] Ondansetron [Zofran ODT] 8 mg PO Q6H PRN 09/13/14 [History] Rizatriptan Benzoate [Rizatriptan] 5 mg PO ASDIRECTED PRN 09/13/14 [History] carvediloL [Carvedilol] 6.25 mg PO BID 10/16/15 [History] EPINEPHrine [Epinephrine] 0.3 mg IJ ONETIME PRN #2 auto.injct 12/03/18 [Rx] traMADol [Ultram] 50 mg PO Q8H PRN 06/03/19 [History] Past Medical History HEENT History: Reports: Cataract, Impaired Vision Cardiovascular History: Reports: CAD, Hypertension, Other (See Below) Other Cardiovascular History: blood infection weakened heart wall Gastrointestinal History: Reports: GI Bleed Genitourinary History: Reports: Renal Calculus Musculoskeletal History: Reports: Back Pain, Chronic, Osteoarthritis, Other ( See Below) Other Musculoskeletal History: L knee injury 11/12/18 Neurological History: Reports: Concussion, Migraines Psychiatric History: Reports: Anxiety, Depression, PTSD, Other (See Below) Other Psychiatric History: pt has a support dog for ptsd/anxiety Dermatologic History: Reports: Cellulitis - Infectious Disease History Infectious Disease History: Reports: Chicken Pox, Mumps - Past Surgical History HEENT Surgical History: Reports: Oral Surgery, Tonsillectomy GI Surgical History: Reports: Colonoscopy, EGD Male Surgical History: Reports: Lithotripsy (ESWL) Musculoskeletal Surgical History: Reports: Other (See Below) Other Musculoskeletal Surgeries/Procedures:: ulnar nerve transport x4- left side Social & Family History - Family History Family Medical History: Noncontributory - Tobacco Use Smoking Status *Q: Never Smoker - Caffeine Use Caffeine Use: Reports: Soda - Recreational Drug Use Recreational Drug Use: No - Living Situation & Occupation Living situation: Reports: (lives with and two children in [facility]), with Spouse Occupation: Disabled ED ROS GENERAL - Review of Systems Review Of Systems: See Below Constitutional: Reports: No Symptoms HEENT: Reports: Eye Pain Respiratory: Reports: No Symptoms Cardiovascular: Reports: No Symptoms GI/Abdominal: Reports: Nausea Neurological: Reports: Headache - Physical Exam Exam: See Below Exam Limited By: No Limitations General Appearance: Alert, WD/WN, Mild Distress Eye Exam: Bilateral Eye: EOMI, Normal Fundi, Normal Inspection, PERRL Respiratory/Chest: No Respiratory Distress Course - Vital Signs Last Recorded V/S: Last Vital Signs Temp 97.1 F 06/29/19 18:53 Pulse 79 06/29/19 20:37 Resp 14 06/29/19 20:37 BP 158/88 H 06/29/19 20:37 Pulse Ox 97 06/29/19 20:37 - Orders/Labs/Meds Orders: Active Orders 24 hr Category Date Time Status Peripheral IV Care [RC] . DIRECTED Care 06/29/19 19:15 Active Sodium Chloride 0.9% [Saline Flush] Med 06/29/19 19:15 Active 10 ml FLUSH ASDIRECTED PRN Peripheral IV Insertion Adult [OM.PC] Urgent Oth 06/29/19 19:15 Ordered Medication Orders Sodium Chloride (Saline Flush) 10 ml FLUSH ASDIRECTED PRN PRN Reason: Keep Vein Open Last Admin: 06/29/19 21:27 Dose: 10 ml Meds: Medications Generic Name Dose Route Start Last Admin Trade Name Freq PRN Reason Stop Dose Admin Sodium Chloride 10 ml 06/29/19 19:15 06/29/19 21:27 Saline Flush FLUSH 10 ml ASDIRECTED PRN Administration Keep Vein Open Discontinued Medications Generic Name Dose Route Start Last Admin Trade Name Dmitryq PRN Reason Stop Dose Admin Diphenhydramine HCl 50 mg 06/29/19 19:15 06/29/19 20:22 Benadryl IVPUSH 06/29/19 19:16 50 mg ONETIME ONE Administration Haloperidol Lactate 5 mg 06/29/19 20:44 06/29/19 21:17 Haldol IVPUSH 06/29/19 20:45 5 mg ONETIME ONE Administration Lactated Ringer's 1,000 mls @ 999 mls/hr 06/29/19 19:15 06/29/19 20:19 Ringers, Lactated IV 06/29/19 20:15 999 mls/hr BOLUS ONE Administration Ketorolac Tromethamine 30 mg 06/29/19 19:15 06/29/19 20:30 Toradol IVPUSH 06/29/19 19:16 30 mg ONETIME ONE Administration Prochlorperazine Edisylate 5 mg 06/29/19 19:15 06/29/19 20:26 Compazine IVPUSH 06/29/19 19:16 5 mg ONETIME ONE Administration Departure - Departure Time of Disposition: 21:49 Disposition: Home, Self-Care 01 Condition: Fair Clinical Impression: Migraine - Discharge Information Instructions: Migraine Headache, [id number] Referrals: Roman Metzger MD [Primary Care Provider] - Forms: ED Department Discharge Additional Instructions: Continue with your regular medications, please followup with your primary care provider in 3-5 days if not better, please call return to the emergency department with worsening of symptoms. Sepsis Event Note - Evaluation Sepsis Screening Result: No Definite Risk - Focused Exam Vital Signs: Vital Signs Temp Pulse Resp BP BP Pulse Ox 06/29/19 20:37 79 14 158/88 H 97 06/29/19 18:53 97.1 F 87 16 158/86 H 94 L 06/29/19 18:31 97.1 F 87 16 158/86 H 94 L Date Exam was Performed: 06/29/19 Time Exam was Performed: 21:48 - My Orders Last 24 Hours: My Active Orders 06/29/19 19:15 Peripheral IV Care [RC] . DIRECTED Sodium Chloride 0.9% [Saline Flush] 10 ml FLUSH ASDIRECTED PRN Peripheral IV Insertion Adult [OM.PC] Urgent - Assessment/Plan Last 24 Hours: My Active Orders 06/29/19 19:15 Peripheral IV Care [RC] . DIRECTED Sodium Chloride 0.9% [Saline Flush] 10 ml FLUSH ASDIRECTED PRN Peripheral IV Insertion Adult [OM.PC] Urgent Plan: Assessment Acuity = acute Site and laterality = migraine type headache without aura Etiology = unknown Manifestations = none Location of injury = Home Lab values = none Plan Good improvement combination fluids, Toradol, Compazine, Benadryl and Haldol, continue with current medications follow-up primary care 3 to 5 days if not better This note was dictated using [employer] voice recognition software please call with any questions on syntax or grammar.
[2019-06-29 20:38] VITALS: BP 158/88; PULSE 79
[2019-06-29] MEDS ORDERED: Haloperidol Lactate 5 MG/ML SDV IVPUSH ONE (20:44)
== END 2019-06-29 22:19 | disposition home or self-care (01) ==
LOC: JP.ED 18:03
DX: G43.909 Migraine, unspecified, not intractable, without status migrainosus (principal); Z88.8 Allergy status to other drugs, medicaments and biological substances; Z91.041 Radiographic dye allergy status; Z91.013 Allergy to seafood; Z91.018 Allergy to other foods; Z91.030 Bee allergy status
CPT/HCPCS: 96361; 96374; 96375; 99283; J0780; J1200; J1630; J1885; J7120

== ENCOUNTER 2019-07-04 10:11 | Emergency (ER) | payer MEDICAID, MEDICARE ==
[2019-07-04] MEDS ORDERED: Ketorolac 30 MG/ML SDV IVPUSH ONE (10:34)
[2019-07-04] MEDS ORDERED: Sodium Chloride 0.9% 10 ML Syringe FLUSH PRN (10:34)
[2019-07-04] MEDS ORDERED: diphenhydrAMINE 50 MG/ML SDV IVPUSH ONE (10:34)
[2019-07-04] MEDS ORDERED: Prochlorperazine 10 MG/2 ML SDV IVPUSH ONE (10:34)
[2019-07-04] MEDS ORDERED: Lactated Ringers 1,000 ML IV ONE ×2 (10:34→11:48)
--- NOTE | 2019-07-04 10:36 | EDM.PDOC ---
ED HPI GENERAL MEDICAL PROBLEM - General Chief Complaint: General Stated Complaint: FAINTING Time Seen by Provider: 07/04/19 10:30 Source of Information: Reports: Patient, Family, RN Notes Reviewed History Limitations: Reports: No Limitations - History of Present Illness INITIAL COMMENTS - FREE TEXT/NARRATIVE: 63-year-old gentleman presents emergency department a complaint of migraine type headache, he states this headache is typical for him although it does seem to be a bit worse than usual he does have photophobia as well as nausea usually uses Maxalt to control his migraines. 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 Headache Pain Score (Numeric/FACES): 8 - Related Data Allergies Allergy/AdvReac Type Severity Reaction Status Date / Time bee venom protein (honey bee) Allergy Severe Anaphylactic Verified 05/23/19 17: 31 Shock iodine Allergy Severe Anaphylactic Verified 05/19/19 09:55 Shock shellfish derived Allergy Severe Anaphylactic Verified 05/19/19 09:55 Shock gabapentin Allergy Cannot Verified 05/19/19 09:55 Remember IV contrast Allergy Severe Anaphylactic Uncoded 05/19/19 09:55 Shock tomato Allergy Hives Uncoded 05/19/19 09:55 Home Meds: Home Meds Amitriptyline [Elavil] 100 mg PO BEDTIME 03/08/13 [History] Ondansetron [Zofran ODT] 8 mg PO Q6H PRN 09/13/14 [History] Rizatriptan Benzoate [Rizatriptan] 5 mg PO ASDIRECTED PRN 09/13/14 [History] carvediloL [Carvedilol] 6.25 mg PO BID 10/16/15 [History] EPINEPHrine [Epinephrine] 0.3 mg IJ ONETIME PRN #2 auto.injct 12/03/18 [Rx] traMADol [Ultram] 50 mg PO Q8H PRN 06/03/19 [History] Past Medical History HEENT History: Reports: Cataract, Impaired Vision Cardiovascular History: Reports: CAD, Hypertension, Other (See Below) Other Cardiovascular History: blood infection weakened heart wall Gastrointestinal History: Reports: GI Bleed Genitourinary History: Reports: Renal Calculus Musculoskeletal History: Reports: Back Pain, Chronic, Osteoarthritis, Other ( See Below) Other Musculoskeletal History: L knee injury 11/12/18 Neurological History: Reports: Concussion, Migraines Psychiatric History: Reports: Anxiety, Depression, PTSD, Other (See Below) Other Psychiatric History: pt has a support dog for ptsd/anxiety Dermatologic History: Reports: Cellulitis - Infectious Disease History Infectious Disease History: Reports: Chicken Pox - Past Surgical History HEENT Surgical History: Reports: Oral Surgery, Tonsillectomy GI Surgical History: Reports: Colonoscopy, EGD Male Surgical History: Reports: Lithotripsy (ESWL) Musculoskeletal Surgical History: Reports: Other (See Below) Other Musculoskeletal Surgeries/Procedures:: ulnar nerve transport x4- left side Social & Family History - Family History Family Medical History: Noncontributory - Tobacco Use Smoking Status *Q: Never Smoker - Caffeine Use Caffeine Use: Reports: Coffee - Recreational Drug Use Recreational Drug Use: No - Living Situation & Occupation Living situation: Reports: (lives with and two children in [facility]), with Spouse Occupation: Disabled ED ROS GENERAL - Review of Systems Review Of Systems: See Below Constitutional: Denies: Fever, Chills HEENT: Reports: Eye Pain Respiratory: Reports: No Symptoms Cardiovascular: Reports: No Symptoms GI/Abdominal: Reports: Nausea. Denies: Vomiting Neurological: Reports: Headache, Syncope ED EXAM, GENERAL - Physical Exam Exam: See Below Exam Limited By: No Limitations General Appearance: Alert, WD/WN, No Apparent Distress Eye Exam: Bilateral Eye: EOMI, Normal Fundi, Normal Inspection, PERRL Respiratory/Chest: No Respiratory Distress Course - Vital Signs Last Recorded V/S: Last Vital Signs Temp 95.9 F 07/04/19 10:33 Pulse 71 07/04/19 11:56 Resp 11 L 07/04/19 11:56 BP 116/65 07/04/19 11:56 Pulse Ox 96 07/04/19 11:56 - Orders/Labs/Meds Orders: Active Orders 24 hr Category Date Time Status Peripheral IV Care [RC] . DIRECTED Care 07/04/19 10:34 Active Sodium Chloride 0.9% [Saline Flush] Med 07/04/19 10:34 Active 10 ml FLUSH ASDIRECTED PRN Peripheral IV Insertion Adult [OM.PC] Urgent Oth 07/04/19 10:34 Ordered Medication Orders Sodium Chloride (Saline Flush) 10 ml FLUSH ASDIRECTED PRN PRN Reason: Keep Vein Open Labs: Laboratory Tests 07/04/19 07/04/19 Range/Units 10:43 10:43 WBC 7.6 (4.5-11.0) K/uL RBC 5.04 (4.30-5.90) M/uL Hgb 14.5 (12.0-15.0) g/dL Hct 44.1 (40.0-54.0) % MCV 88 (80-98) fL MCH 29 (27-31) pg MCHC 33 (32-36) % Plt Count 278 (150-400) K/uL Neut % (Auto) 56 (36-66) % Lymph % (Auto) 29 (24-44) % [place] % (Auto) 11 H (2-6) % Eos % (Auto) 3 (2-4) % Baso % (Auto) 1 (0-1) % Sodium 142 (140-148) mmol/L Potassium 4.0 (3.6-5.2) mmol/L Chloride 106 (100-108) mmol/L Carbon Dioxide 26 (21-32) mmol/L Anion Gap 9.9 (5.0-14.0) mmol/L BUN 22 H (7-18) mg/dL Creatinine 1.5 H (0.8-1.3) mg/dL Est Cr Clr Drug Dosing 49.79 mL/min Estimated GFR (MDRD) 47 L (>60) Glucose 85 (74-106) mg/dL Calcium 9.2 (8.5-10.1) mg/dL Total Bilirubin 0.4 (0.2-1.0) mg/dL AST 20 (15-37) U/L ALT 56 (12-78) U/L Alkaline Phosphatase 118 H (46-116) U/L Total Protein 6.9 (6.4-8.2) g/dL Albumin 3.5 (3.4-5.0) g/dL Globulin 3.4 (2.3-3.5) g/dL Albumin/Globulin Ratio 1.0 L (1.2-2.2) Meds: Medications Generic Name Dose Route Start Last Admin Trade Name Freq PRN Reason Stop Dose Admin Sodium Chloride 10 ml 07/04/19 10:34 Saline Flush FLUSH ASDIRECTED PRN Keep Vein Open Discontinued Medications Generic Name Dose Route Start Last Admin Trade Name Torin PRN Reason Stop Dose Admin Dexamethasone 4 mg 07/04/19 11:31 07/04/19 11:50 Dexamethasone IVPUSH 07/04/19 11:32 4 mg ONETIME ONE Administration Diphenhydramine HCl 50 mg 07/04/19 10:34 07/04/19 10:44 Benadryl IVPUSH 07/04/19 10:35 50 mg ONETIME ONE Administration Haloperidol Lactate 10 mg 07/04/19 11:31 07/04/19 11:50 Haldol IVPUSH 07/04/19 11:32 10 mg ONETIME ONE Administration Lactated Ringer's 1,000 mls @ 999 mls/hr 07/04/19 10:34 07/04/19 10:44 Ringers, Lactated IV 07/04/19 11:34 999 mls/hr BOLUS ONE Administration Lactated Ringer's 1,000 mls @ 999 mls/hr 07/04/19 11:48 07/04/19 11:51 Ringers, Lactated IV 07/04/19 12:48 999 mls/hr BOLUS ONE Administration Ketorolac Tromethamine 30 mg 07/04/19 10:34 07/04/19 10:44 Toradol IVPUSH 07/04/19 10:35 30 mg ONETIME ONE Administration Prochlorperazine Edisylate 5 mg 07/04/19 10:34 07/04/19 10:44 Compazine IVPUSH 07/04/19 10:35 5 mg ONETIME ONE Administration Departure - Departure Time of Disposition: 12:55 Disposition: Home, Self-Care 01 Condition: Fair Clinical Impression: Migraine - Discharge Information Instructions: Recurrent Migraine Headache, [id number] Referrals: Roman Metzger MD [Primary Care Provider] - Forms: ED Department Discharge Additional Instructions: Continue with your regular medications, please followup with your primary care provider in 2-3 days if not better, please call return to the emergency department with worsening of symptoms. Sepsis Event Note - Evaluation Sepsis Screening Result: No Definite Risk - Focused Exam Vital Signs: Vital Signs Temp Pulse Resp BP Pulse Ox 07/04/19 11:56 71 11 L 116/65 96 07/04/19 10:33 95.9 F 92 16 128/90 100 07/04/19 10:29 95.9 F 92 16 128/90 100 Date Exam was Performed: 07/04/19 Time Exam was Performed: 12:54 - My Orders Last 24 Hours: My Active Orders 07/04/19 10:34 Peripheral IV Care [RC] . DIRECTED Sodium Chloride 0.9% [Saline Flush] 10 ml FLUSH ASDIRECTED PRN Peripheral IV Insertion Adult [OM.PC] Urgent - Assessment/Plan Last 24 Hours: My Active Orders 07/04/19 10:34 Peripheral IV Care [RC] . DIRECTED Sodium Chloride 0.9% [Saline Flush] 10 ml FLUSH ASDIRECTED PRN Peripheral IV Insertion Adult [OM.PC] Urgent Plan: Assessment Acuity = acute Site and laterality = migraine type headache without aura Etiology = unknown Manifestations = none Location of injury = Home Lab values = none Plan Good improvement with 2 L of fluid, Toradol, Compazine, Haldol, Benadryl and dexamethasone, follow-up primary care 2 to 3 days not better This note was dictated using [employer] voice recognition software please call with any questions on syntax or grammar.
[2019-07-04] MEDS ORDERED: Dexamethasone 4 MG/ML SDV IVPUSH ONE (11:31)
[2019-07-04] MEDS ORDERED: Haloperidol Lactate 5 MG/ML SDV IVPUSH ONE (11:31)
[2019-07-04 11:57] VITALS: BP 116/65; PULSE 71
== END 2019-07-04 13:06 | disposition home or self-care (01) ==
LOC: JP.ED 10:11
DX: G43.009 Migraine without aura, not intractable, without status migrainosus (principal); I10 Essential (primary) hypertension; I25.10 Atherosclerotic heart disease of native coronary artery without angina pectoris; Z79.899 Other long term (current) drug therapy; Z91.030 Bee allergy status; Z91.013 Allergy to seafood; Z91.018 Allergy to other foods; Z88.8 Allergy status to other drugs, medicaments and biological substances
CPT/HCPCS: 36415; 80053; 85025; 96361; 96374; 96375; 99284; J0780; J1100; J1200; J1630; J1885; J7120

== ENCOUNTER 2019-07-08 19:21 | Emergency (ER) | payer MEDICAID ==
[2019-07-08 19:29] VITALS: BP 170/102; PULSE 90
--- NOTE | 2019-07-08 19:50 | EDM.PDOC ---
ED HPI GENERAL MEDICAL PROBLEM - General Chief Complaint: Neck Problem Stated Complaint: MEDICAL VIA NORTH Time Seen by Provider: 07/08/19 19:35 Source of Information: Reports: Patient, EMS History Limitations: Reports: No Limitations - History of Present Illness INITIAL COMMENTS - FREE TEXT/NARRATIVE: 63-year-old male slipped on 3 or 4 steps tonight falling on his back, head, and hurting his neck as well as hitting his left elbow and tailbone area. He was brought in by EMS with a cervical collar. Given fentanyl and Zofran in route, now mostly complaining of neck discomfort. Onset: Sudden Duration: Hour(s): (Within the past hour) Location: Reports: Head, Neck, Back, Upper Extremity, Left Associated Symptoms: Reports: Headaches, Nausea/Vomiting. Denies: Confusion, Chest Pain, Cough, Shortness of Breath Neck Pain Score (Numeric/FACES): 10 Lower Back Pain Score (Numeric/FACES): 10 - Related Data Allergies Allergy/AdvReac Type Severity Reaction Status Date / Time bee venom protein (honey bee) Allergy Severe Anaphylactic Verified 05/23/19 17: 31 Shock iodine Allergy Severe Anaphylactic Verified 05/19/19 09:55 Shock shellfish derived Allergy Severe Anaphylactic Verified 05/19/19 09:55 Shock gabapentin Allergy Cannot Verified 05/19/19 09:55 Remember IV contrast Allergy Severe Anaphylactic Uncoded 05/19/19 09:55 Shock tomato Allergy Hives Uncoded 05/19/19 09:55 Home Meds: Home Meds Amitriptyline [Elavil] 100 mg PO BEDTIME 03/08/13 [History] Ondansetron [Zofran ODT] 8 mg PO Q6H PRN 09/13/14 [History] Rizatriptan Benzoate [Rizatriptan] 5 mg PO ASDIRECTED PRN 09/13/14 [History] carvediloL [Carvedilol] 6.25 mg PO BID 10/16/15 [History] EPINEPHrine [Epinephrine] 0.3 mg IJ ONETIME PRN #2 auto.injct 12/03/18 [Rx] traMADol [Ultram] 50 mg PO Q8H PRN 06/03/19 [History] Past Medical History HEENT History: Reports: Cataract, Impaired Vision Cardiovascular History: Reports: CAD, Hypertension, Other (See Below) Other Cardiovascular History: blood infection weakened heart wall Gastrointestinal History: Reports: GI Bleed Genitourinary History: Reports: Renal Calculus Musculoskeletal History: Reports: Back Pain, Chronic, Osteoarthritis, Other ( See Below) Other Musculoskeletal History: L knee injury 11/12/18 Neurological History: Reports: Concussion, Migraines Psychiatric History: Reports: Anxiety, Depression, PTSD, Other (See Below) Other Psychiatric History: pt has a support dog for ptsd/anxiety Dermatologic History: Reports: Cellulitis - Infectious Disease History Infectious Disease History: Reports: Chicken Pox - Past Surgical History HEENT Surgical History: Reports: Oral Surgery, Tonsillectomy GI Surgical History: Reports: Colonoscopy, EGD Male Surgical History: Reports: Lithotripsy (ESWL) Musculoskeletal Surgical History: Reports: Other (See Below) Other Musculoskeletal Surgeries/Procedures:: ulnar nerve transport x4- left side Social & Family History - Family History Family Medical History: Noncontributory - Tobacco Use Smoking Status *Q: Never Smoker - Caffeine Use Caffeine Use: Reports: Soda - Recreational Drug Use Recreational Drug Use: No - Living Situation & Occupation Living situation: Reports: (lives with and two children in [facility]), with Spouse Occupation: Disabled ED ROS GENERAL - Review of Systems Review Of Systems: See Below Constitutional: Reports: Malaise. Denies: Fever, Chills HEENT: Denies: Vision Change Respiratory: Denies: Shortness of Breath Cardiovascular: Denies: Chest Pain GI/Abdominal: Reports: Nausea, Vomiting. Denies: Abdominal Pain : Reports: No Symptoms Musculoskeletal: Reports: Neck Pain, Arm Pain (Left side), Back Pain Skin: Denies: Bruising ED EXAM, UPPER BACK/NECK PAIN - Physical Exam Exam: See Below Exam Limited By: No Limitations General Appearance: Alert, Mild Distress (Very nauseous, complaining of discomfort) Eye Exam: Bilateral Eye: PERRL Head Exam: Atraumatic Neck Exam: Other (Cervical collar is on, posterior tenderness to palpation is present so collar was replaced) Cardiovascular/Respiratory: Regular Rate, Rhythm GI/Abdominal: Non-Tender Extremities: Other (Some tenderness around the left elbow but no bony deformity or crepitus, no pain with passive range of motion of the lower extremities) Course - Vital Signs Last Recorded V/S: Last Vital Signs Temp 97 F 07/08/19 19:26 Pulse 90 07/08/19 19:26 Resp 16 07/08/19 19:26 BP 170/102 H 07/08/19 19:26 Pulse Ox 95 07/08/19 19:26 - Orders/Labs/Meds Meds: Medications Discontinued Medications Generic Name Dose Route Start Last Admin Trade Name Torin PRN Reason Stop Dose Admin Ketorolac Tromethamine 30 mg 07/08/19 20:35 07/08/19 20:43 Toradol IVPUSH 07/08/19 20:36 30 mg ONETIME ONE Administration Ondansetron HCl 4 mg 07/08/19 20:04 07/08/19 20:08 Zofran IVPUSH 07/08/19 20:05 4 mg ONETIME ONE Administration - Re-Assessments/Exams Free Text/Narrative Re-Assessment/Exam: 07/08/19 21:04 CT scans were negative. Prior to the report beneficial the patient was asking for more pain control so was given 30 mg of IV Toradol. After the CTs were reported as negative he was gotten up and ambulated. 07/08/19 21:08 Patient was feeling better and was agreeable to discharge. Ice to sore areas for the next 48 hours, increase activity as tolerated and return as needed. Departure - Departure Time of Disposition: 21:18 Disposition: Home, Self-Care 01 Clinical Impression: Contusion of lower back Qualifiers: Encounter type: initial encounter Qualified Code(s): S30.0XXA - Contusion of lower back and pelvis, initial encounter Cervical strain, acute Qualifiers: Encounter type: initial encounter Qualified Code(s): S16.1XXA - Strain of muscle, fascia and tendon at neck level, initial encounter - Discharge Information Instructions: Neck Contusion Referrals: PCP,None [Primary Care Provider] - Forms: ED Department Discharge Care Plan Goals: Ice to sore areas for the next 48 hours would be beneficial, and increase activity as tolerated. Consider rechecking in 2 to 3 days if not improving satisfactorily. Sepsis Event Note - Evaluation Sepsis Screening Result: No Definite Risk - Focused Exam Vital Signs: Vital Signs Temp Pulse Resp BP Pulse Ox 07/08/19 19:26 97 F 90 16 170/102 H 95 Date Exam was Performed: 07/08/19 Time Exam was Performed: 23:43
[2019-07-08] MEDS ORDERED: Ondansetron 4 MG/2 ML SDV IVPUSH ONE (20:04)
[2019-07-08] MEDS ORDERED: Ketorolac 30 MG/ML SDV IVPUSH ONE (20:35)
--- NOTE | 2019-07-08 20:50 | CRLCT ---
INDICATION: Fall with neck pain TECHNIQUE: CT cervical spine without contrast. COMPARISON: December 10, 2017 FINDINGS: Vertebral alignment: Alignment is normal. Vertebrae: There are no fractures or suspicious bony lesions. Discs and facet joints: There are mild multilevel degenerative changes. Extraspinal findings: Paraspinous soft tissues are unremarkable. IMPRESSION: No acute injury. Please note that all CT scans at this facility use dose modulation, iterative reconstruction, and/or weight-based dosing when appropriate to reduce radiation dose to as low as reasonably achievable. Dictated by Yu Hendricks MD @ Jul 08 2019 8:39PM Signed by Dr. Yu Hendricks @ Jul 08 2019 8:49PM
--- NOTE | 2019-07-08 20:52 | CRLCT ---
INDICATION: Fall with head trauma TECHNIQUE: Head CT without contrast. COMPARISON: May 23, 2019 FINDINGS: CSF spaces: Within normal limits for age. Brain parenchyma: Normal norton-white junction. No sign of mass, hemorrhage, or midline shift. Skull base and calvarium: The visualized paranasal sinuses and mastoid air cells demonstrate no acute or significant findings. The visualized orbits are grossly unremarkable. No skull fractures. IMPRESSION: No acute abnormality. Please note that all CT scans at this facility use dose modulation, iterative reconstruction, and/or weight-based dosing when appropriate to reduce radiation dose to as low as reasonably achievable. Dictated by Yu Hendricks MD @ Jul 08 2019 8:51PM Signed by Dr. Yu Hendricks @ Jul 08 2019 8:51PM
== END 2019-07-08 21:19 | disposition home or self-care (01) ==
LOC: JP.ED 19:21
DX: S16.1XXA Strain of muscle, fascia and tendon at neck level, initial encounter (principal); S30.0XXA Contusion of lower back and pelvis, initial encounter; F32.9 Major depressive disorder, single episode, unspecified; I10 Essential (primary) hypertension; Z91.030 Bee allergy status; Z88.8 Allergy status to other drugs, medicaments and biological substances; Z91.041 Radiographic dye allergy status; Z91.013 Allergy to seafood; Z91.018 Allergy to other foods; W10.9XXA Fall (on) (from) unspecified stairs and steps, initial encounter
CPT/HCPCS: 70450; 72125; 96374; 96375; 99284; J1885; J2405

== ENCOUNTER 2019-08-16 10:58 | Emergency (ER) | payer MEDICAID ==
--- NOTE | 2019-08-16 11:43 | EDM.PDOC ---
ED HPI GENERAL MEDICAL PROBLEM - General Chief Complaint: General Stated Complaint: MEDICAL VIA NORTH Time Seen by Provider: 08/16/19 11:28 Source of Information: Reports: Patient, Family, Old Records, RN Notes Reviewed History Limitations: Reports: No Limitations - History of Present Illness INITIAL COMMENTS - FREE TEXT/NARRATIVE: 63-year-old gentleman brought in by EMS services for a unresponsive event. He has had several syncopal events in the past has visited with cardiology yesterday is in the process of working this up known history of an arrhythmia yet to be diagnosed has gotten tachycardic in the past. Is set up for a stress test on Thursday. For this particular event states he was sitting in the chair did not feel well became unresponsive per his but she noticed that he had rapid movements of his eyelids there was no movement of upper and lower extremities called 911 he was moved to the ground paramedics arrived at which time he was responsive but confused this made there was a 10 to 15-minute period where he would respond to questions but it was incorrect. At this time he feels like he is in a fog he feels weak no focal neurologic deficit no shortness of breath no chest pain. Recently underwent CAT scan imaging last month of the head for a fall no acute abnormality was identified Left Back Pain Score (Numeric/FACES): 5 - Related Data Allergies Allergy/AdvReac Type Severity Reaction Status Date / Time bee venom protein (honey bee) Allergy Severe Anaphylactic Verified 05/23/19 17: 31 Shock iodine Allergy Severe Anaphylactic Verified 05/19/19 09:55 Shock shellfish derived Allergy Severe Anaphylactic Verified 05/19/19 09:55 Shock gabapentin Allergy Cannot Verified 05/19/19 09:55 Remember IV contrast Allergy Severe Anaphylactic Uncoded 05/19/19 09:55 Shock tomato Allergy Hives Uncoded 05/19/19 09:55 Home Meds: Home Meds Rizatriptan Benzoate [Rizatriptan] 5 mg PO ASDIRECTED PRN 09/13/14 [History] carvediloL [Carvedilol] 6.25 mg PO BID 10/16/15 [History] EPINEPHrine [Epinephrine] 0.3 mg IJ ONETIME PRN #2 auto.injct 12/03/18 [Rx] Prochlorperazine [Compazine] 1 supp RECTAL Q8H PRN 08/16/19 [History] Sertraline [Zoloft] 1 tab PO DAILY 08/16/19 [History] Past Medical History HEENT History: Reports: Cataract, Impaired Vision Cardiovascular History: Reports: CAD, Hypertension, Other (See Below) Other Cardiovascular History: blood infection weakened heart wall Gastrointestinal History: Reports: GI Bleed Genitourinary History: Reports: Renal Calculus Musculoskeletal History: Reports: Back Pain, Chronic, Osteoarthritis, Other ( See Below) Other Musculoskeletal History: L knee injury 11/12/18 Neurological History: Reports: Concussion, Migraines Psychiatric History: Reports: Anxiety, Depression, PTSD, Other (See Below) Other Psychiatric History: pt has a support dog for ptsd/anxiety Dermatologic History: Reports: Cellulitis - Infectious Disease History Infectious Disease History: Reports: Chicken Pox - Past Surgical History HEENT Surgical History: Reports: Oral Surgery, Tonsillectomy Other Cardiovascular Surgeries/Procedures: currently wearing a cadiac monitor for 30 days. 08/16/19 GI Surgical History: Reports: Colonoscopy, EGD Male Surgical History: Reports: Lithotripsy (ESWL) Musculoskeletal Surgical History: Reports: Other (See Below) Other Musculoskeletal Surgeries/Procedures:: ulnar nerve transport x4- left side Social & Family History - Family History Family Medical History: Noncontributory - Tobacco Use Smoking Status *Q: Never Smoker - Caffeine Use Caffeine Use: Reports: None - Living Situation & Occupation Living situation: Reports: (lives with and two children in [facility]), with Spouse Occupation: Disabled ED ROS GENERAL - Review of Systems Review Of Systems: See Below Constitutional: Reports: Weakness, Fatigue HEENT: Reports: No Symptoms Respiratory: Reports: No Symptoms Cardiovascular: Reports: Syncope GI/Abdominal: Reports: No Symptoms : Reports: No Symptoms Neurological: Reports: Other (Unresponsive event) Psychiatric: Reports: No Symptoms ED EXAM, GENERAL - Physical Exam Exam: See Below Exam Limited By: No Limitations General Appearance: Alert, No Apparent Distress Eye Exam: Bilateral Eye: EOMI, Normal Inspection, PERRL Throat/Mouth: Normal Inspection, Normal Lips, Normal Teeth, Normal Gums, Normal Oropharynx, Normal Voice, No Airway Compromise Head: Atraumatic, Normocephalic Neck: Normal Inspection, Supple, Non-Tender, Full Range of Motion Respiratory/Chest: No Respiratory Distress, Lungs Clear, Normal Breath Sounds, No Accessory Muscle Use, Chest Non-Tender Cardiovascular: Regular Rate, Rhythm, No Murmur GI/Abdominal: Soft, Non-Tender Course - Vital Signs Last Recorded V/S: Last Vital Signs Temp 96.6 F L 08/16/19 11:02 Pulse 64 08/16/19 12:25 Resp 16 08/16/19 12:25 BP 146/89 H 08/16/19 12:25 Pulse Ox 98 08/16/19 12:25 - Orders/Labs/Meds Orders: Active Orders 24 hr Category Date Time Status Cardiac Monitoring [RC] STAT Care 08/16/19 12:40 Ordered Communication Order [RC] Per Unit Routine Care 08/16/19 12:40 Ordered Communication Order [RC] Per Unit Routine Care 08/16/19 12:40 Ordered EKG Documentation Completion [RC] ASDIRECTED Care 08/16/19 11:41 Active INR,PT,PROTHROMBIN TIME [COAG] Stat Lab 08/16/19 12:40 Ordered PTT,PARTIAL THROMBOPLSTIN TIME [COAG] Stat Lab 08/16/19 12:40 Ordered Lactated Ringers [Ringers, Lactated] 1,000 ml Med 08/16/19 13:00 Ordered IV BOLUS EKG 12 Lead [EK] Urgent Ther 08/16/19 11:40 Ordered Medication Orders Lactated Ringer's (Ringers, Lactated) 1,000 mls @ 125 mls/hr IV BOLUS ONE Stop: 08/16/19 20:59 Labs: Laboratory Tests 08/16/19 08/16/19 08/16/19 Range/Units 11:49 11:49 11:49 WBC 6.8 (4.5-11.0) K/uL RBC 4.71 (4.30-5.90) M/uL Hgb 13.7 (12.0-15.0) g/dL Hct 40.9 (40.0-54.0) % MCV 87 (80-98) fL MCH 29 (27-31) pg MCHC 34 (32-36) % Plt Count 265 (150-400) K/uL Neut % (Auto) 58 (36-66) % Lymph % (Auto) 29 (24-44) % Dorado % (Auto) 9 H (2-6) % Eos % (Auto) 3 (2-4) % Baso % (Auto) 1 (0-1) % Sodium 142 (140-148) mmol/L Potassium 3.7 (3.6-5.2) mmol/L Chloride 107 (100-108) mmol/L Carbon Dioxide 28 (21-32) mmol/L Anion Gap 7.3 (5.0-14.0) mmol/L BUN 19 H (7-18) mg/dL Creatinine 1.4 H (0.8-1.3) mg/dL Est Cr Clr Drug Dosing 56.43 mL/min Estimated GFR (MDRD) 51 L (>60) Glucose 91 (74-106) mg/dL Lactic Acid 1.7 (0.4-2.0) mmol/L Calcium 8.9 (8.5-10.1) mg/dL Total Bilirubin 0.4 (0.2-1.0) mg/dL AST 19 (15-37) U/L ALT 44 (12-78) U/L Alkaline Phosphatase 106 (46-116) U/L Troponin I 0.161 H* (0.000-0.056) ng/mL Total Protein 6.3 L (6.4-8.2) g/dL Albumin 3.3 L (3.4-5.0) g/dL Globulin 3.0 (2.3-3.5) g/dL Albumin/Globulin Ratio 1.1 L (1.2-2.2) Ethyl Alcohol mg/dL 08/16/19 Range/Units 11:49 WBC (4.5-11.0) K/uL RBC (4.30-5.90) M/uL Hgb (12.0-15.0) g/dL Hct (40.0-54.0) % MCV (80-98) fL MCH (27-31) pg MCHC (32-36) % Plt Count (150-400) K/uL Neut % (Auto) (36-66) % Lymph % (Auto) (24-44) % Dorado % (Auto) (2-6) % Eos % (Auto) (2-4) % Baso % (Auto) (0-1) % Sodium (140-148) mmol/L Potassium (3.6-5.2) mmol/L Chloride (100-108) mmol/L Carbon Dioxide (21-32) mmol/L Anion Gap (5.0-14.0) mmol/L BUN (7-18) mg/dL Creatinine (0.8-1.3) mg/dL Est Cr Clr Drug Dosing mL/min Estimated GFR (MDRD) (>60) Glucose (74-106) mg/dL Lactic Acid (0.4-2.0) mmol/L Calcium (8.5-10.1) mg/dL Total Bilirubin (0.2-1.0) mg/dL AST (15-37) U/L ALT (12-78) U/L Alkaline Phosphatase (46-116) U/L Troponin I (0.000-0.056) ng/mL Total Protein (6.4-8.2) g/dL Albumin (3.4-5.0) g/dL Globulin (2.3-3.5) g/dL Albumin/Globulin Ratio (1.2-2.2) Ethyl Alcohol < 3 mg/dL Meds: Medications Generic Name Dose Route Start Last Admin Trade Name Freq PRN Reason Stop Dose Admin Lactated Ringer's 1,000 mls @ 125 mls/hr 08/16/19 13:00 Ringers, Lactated IV 08/16/19 20:59 BOLUS ONE Discontinued Medications Generic Name Dose Route Start Last Admin Trade Name Freq PRN Reason Stop Dose Admin Aspirin 324 mg 08/16/19 12:40 08/16/19 12:43 Aspirin PO 08/16/19 12:41 324 mg ONETIME ONE Administration Departure - Departure Time of Disposition: 13:02 Disposition: DC/Tfer to Acute Hospital 02 Condition: Fair Clinical Impression: Elevated troponin - Discharge Information Referrals: PCP,None [Primary Care Provider] - Forms: ED Department Discharge Sepsis Event Note - Evaluation Sepsis Screening Result: No Definite Risk - Focused Exam Vital Signs: Vital Signs Temp Pulse Resp BP Pulse Ox 08/16/19 12:25 64 16 146/89 H 98 08/16/19 11:55 66 16 140/88 98 08/16/19 11:25 70 16 153/92 H 98 08/16/19 11:02 96.6 F L 77 18 170/104 H 100 08/16/19 11:01 96.6 F L 77 18 170/104 H 100 Date Exam was Performed: 08/16/19 Time Exam was Performed: 13:01 - My Orders Last 24 Hours: My Active Orders 08/16/19 11:40 EKG 12 Lead [EK] Urgent 08/16/19 11:41 EKG Documentation Completion [RC] ASDIRECTED 08/16/19 12:40 Cardiac Monitoring [RC] STAT Communication Order [RC] Per Unit Routine Communication Order [RC] Per Unit Routine INR,PT,PROTHROMBIN TIME [COAG] Stat PTT,PARTIAL THROMBOPLSTIN TIME [COAG] Stat 08/16/19 13:00 Lactated Ringers [Ringers, Lactated] 1,000 ml IV BOLUS - Assessment/Plan Last 24 Hours: My Active Orders 08/16/19 11:40 EKG 12 Lead [EK] Urgent 08/16/19 11:41 EKG Documentation Completion [RC] ASDIRECTED 08/16/19 12:40 Cardiac Monitoring [RC] STAT Communication Order [RC] Per Unit Routine Communication Order [RC] Per Unit Routine INR,PT,PROTHROMBIN TIME [COAG] Stat PTT,PARTIAL THROMBOPLSTIN TIME [COAG] Stat 08/16/19 13:00 Lactated Ringers [Ringers, Lactated] 1,000 ml IV BOLUS Plan: Assessment Acuity = acute Site and laterality = elevated troponin Etiology = unknown etiology Manifestations = syncope Location of injury = Home Lab values = CBC unremarkable creatinine elevated 1.4 consistent with chronic renal failure stage G3 a troponin elevated 0.161 twice the normal limit unclear significance Plan Call discussed case Dr. Slade emergency room physician at [facility] at 1250 he kindly excepted patient in transport will be transported via EMS ground and aspirin has been given no other medications at this time started he has remained chest pain-free asymptomatic other than lethargy in the emergency department This note was dictated using [employer] voice recognition software please call with any questions on syntax or grammar.
[2019-08-16] MEDS ORDERED: Aspirin 81 MG Tab.Chew PO ONE (12:40)
[2019-08-16] MEDS ORDERED: Lactated Ringers 1,000 ML IV ONE (13:00)
[2019-08-16 13:15] VITALS: BP 151/92; PULSE 75
== END 2019-08-16 13:56 ==
LOC: JP.ED 10:58
DX: R79.89 Other specified abnormal findings of blood chemistry (principal); I25.10 Atherosclerotic heart disease of native coronary artery without angina pectoris; I10 Essential (primary) hypertension; F41.9 Anxiety disorder, unspecified; F32.9 Major depressive disorder, single episode, unspecified; Z91.030 Bee allergy status; Z91.013 Allergy to seafood; Z88.8 Allergy status to other drugs, medicaments and biological substances; Z91.041 Radiographic dye allergy status; Z79.899 Other long term (current) drug therapy
CPT/HCPCS: 36415; 80053; 80307; 83605; 84484; 85025; 85610; 85730; 93005; 96360; 99285; A9270; J7120

== ENCOUNTER 2019-10-10 16:19 | Emergency (ER) | payer MEDICAID ==
[2019-10-10 16:35] VITALS: BP 174/111; PULSE 92
--- NOTE | 2019-10-10 16:44 | EDM.PDOC ---
ED HPI GENERAL MEDICAL PROBLEM - General Chief Complaint: Laceration Stated Complaint: LACERATION TO LEFT PALM Time Seen by Provider: 10/10/19 16:37 Source of Information: Reports: Patient History Limitations: Reports: No Limitations - History of Present Illness Onset: Today Duration: Hour(s): (1) Location: Reports: Upper Extremity, Left Quality: Reports: Sharp Severity: Moderate - Related Data Allergies Allergy/AdvReac Type Severity Reaction Status Date / Time bee venom protein (honey bee) Allergy Severe Anaphylactic Verified 05/23/19 17: 31 Shock iodine Allergy Severe Anaphylactic Verified 05/19/19 09:55 Shock shellfish derived Allergy Severe Anaphylactic Verified 05/19/19 09:55 Shock gabapentin Allergy Cannot Verified 05/19/19 09:55 Remember IV contrast Allergy Severe Anaphylactic Uncoded 05/19/19 09:55 Shock tomato Allergy Hives Uncoded 05/19/19 09:55 Home Meds: Home Meds Rizatriptan Benzoate [Rizatriptan] 5 mg PO ASDIRECTED PRN 09/13/14 [History] carvediloL [Carvedilol] 6.25 mg PO BID 10/16/15 [History] EPINEPHrine [Epinephrine] 0.3 mg IJ ONETIME PRN #2 auto.injct 12/03/18 [Rx] Prochlorperazine [Compazine] 1 supp RECTAL Q8H PRN 08/16/19 [History] Sertraline [Zoloft] 1 tab PO DAILY 08/16/19 [History] Past Medical History HEENT History: Reports: Cataract, Impaired Vision Cardiovascular History: Reports: CAD, Hypertension, Other (See Below) Other Cardiovascular History: blood infection weakened heart wall Gastrointestinal History: Reports: GI Bleed Genitourinary History: Reports: Renal Calculus Musculoskeletal History: Reports: Back Pain, Chronic, Osteoarthritis, Other ( See Below) Other Musculoskeletal History: L knee injury 11/12/18 Neurological History: Reports: Concussion, Migraines Psychiatric History: Reports: Anxiety, Depression, PTSD, Other (See Below) Other Psychiatric History: pt has a support dog for ptsd/anxiety Dermatologic History: Reports: Cellulitis - Infectious Disease History Infectious Disease History: Reports: Chicken Pox - Past Surgical History HEENT Surgical History: Reports: Oral Surgery, Tonsillectomy Other Cardiovascular Surgeries/Procedures: currently wearing a cadiac monitor for 30 days. 08/16/19 GI Surgical History: Reports: Colonoscopy, EGD Male Surgical History: Reports: Lithotripsy (ESWL) Musculoskeletal Surgical History: Reports: Other (See Below) Other Musculoskeletal Surgeries/Procedures:: ulnar nerve transport x4- left side Social & Family History - Family History Family Medical History: Noncontributory - Tobacco Use Smoking Status *Q: Unknown Ever Smoked - Caffeine Use Caffeine Use: Reports: None - Living Situation & Occupation Living situation: Reports: (lives with and two children in [facility]), with Spouse Occupation: Disabled ED ROS GENERAL - Review of Systems Review Of Systems: See Below Constitutional: Reports: No Symptoms Respiratory: Reports: No Symptoms Cardiovascular: Reports: No Symptoms GI/Abdominal: Denies: Nausea, Vomiting Musculoskeletal: Reports: Other (laceration left palm) Neurological: Reports: Pre-Existing Deficit (Sent left median nerve so fourth and fifth digits in the hand are numb) Hematologic/Lymphatic: Denies: Easy Bleeding, Easy Bruising ED EXAM, SKIN/RASH Exam: See Below Exam Limited By: No Limitations General Appearance: Alert Throat/Mouth: Normal Inspection Head: Atraumatic, Normocephalic Respiratory/Chest: No Respiratory Distress Extremities: Normal Range of Motion, Other (Left palm exhibits a 2 cm linear laceration on the hyperthenar eminence. Patient has no acute loss of sensation distally although he did have previous median nerve damage on that side so he is lost sensation to the fourth and fifth digits. There is no active bleeding. Able to move all fingers and extend and flex them without problem.) Psychiatric: Normal Affect, Normal Mood ED SKIN PROCEDURES - Laceration/Wound Repair Left Hand Appearance: Subcutaneous Distal NVT: No Tendon Injury Anesthetic Type: Local Local Anesthesia - Lidocaine (Xylocaine): 1% Plain Local Anesthetic Volume: 4cc Skin Prep: Other (Soap and water) Exploration/Debridement/Repair: Wound Explored Closed with: Sutures Lac/Wound length In cm: 2 Suture Size: 4-0 # of Sutures: 3 Suture Type: Nylon, Interrupted, Simple Tetanus Status Addressed: Yes Complications: No Course - Vital Signs Last Recorded V/S: Last Vital Signs Temp 36.6 C 10/10/19 16:35 Pulse 92 10/10/19 16:35 Resp 18 10/10/19 16:35 BP 174/111 H 10/10/19 16:35 Pulse Ox 95 10/10/19 16:35 Departure - Departure Time of Disposition: 17:03 Disposition: Home, Self-Care 01 Condition: Good Clinical Impression: Hand laceration Qualifiers: Encounter type: initial encounter Foreign body presence: without foreign body Laterality: left Qualified Code(s): S61.412A - Laceration without foreign body of left hand, initial encounter - Discharge Information Referrals: Roman Metzger MD [Primary Care Provider] - Additional Instructions: Wound clean dry and covered. Sutures should come out in 1 week. May go to your primary care physician, urgent care, or back to this emergency department for suture removal. Sepsis Event Note - Evaluation Sepsis Screening Result: No Definite Risk - Focused Exam Vital Signs: Vital Signs Temp Pulse Resp BP Pulse Ox 10/10/19 16:35 36.6 C 92 18 174/111 H 95 10/10/19 16:34 36.6 C 92 18 174/111 H 95 Date Exam was Performed: 10/10/19 Time Exam was Performed: 16:37
[2019-10-10] MEDS: Diphtheria,Pertussis(Acell),Tetanus Vaccine 0.5 ML SDV IM ONE (17:00)
== END 2019-10-10 17:17 | disposition home or self-care (01) ==
LOC: JP.ED 16:19
DX: S61.412A Laceration without foreign body of left hand, initial encounter (principal); I10 Essential (primary) hypertension; I25.10 Atherosclerotic heart disease of native coronary artery without angina pectoris; M19.90 Unspecified osteoarthritis, unspecified site; F41.9 Anxiety disorder, unspecified; F32.9 Major depressive disorder, single episode, unspecified; Z23 Encounter for immunization; Z91.030 Bee allergy status; Z91.013 Allergy to seafood; Z91.018 Allergy to other foods; Z91.041 Radiographic dye allergy status; Z88.8 Allergy status to other drugs, medicaments and biological substances; Z79.899 Other long term (current) drug therapy; W26.8XXA Contact with other sharp object(s), not elsewhere classified, initial encounter
CPT/HCPCS: 12001; 90471; 90715; 99282; J2001

== ENCOUNTER 2019-12-04 18:20 | Emergency (ER) | payer MEDICAID ==
[2019-12-04] MEDS ORDERED: Famotidine 20 MG/2 ML SDV IVPUSH ONE (18:28)
[2019-12-04] MEDS ORDERED: EPINEPHrine 1 MG/ML SDV IM ONE (18:28)
[2019-12-04] MEDS ORDERED: Sodium Chloride 0.9% 10 ML Syringe FLUSH PRN (18:28)
[2019-12-04] MEDS ORDERED: diphenhydrAMINE 50 MG/ML SDV IVPUSH ONE (18:28)
[2019-12-04] MEDS ORDERED: methylPREDNISolone Sodium Succinate 125 MG/2 ML SDV IV ONE (18:28)
--- NOTE | 2019-12-04 18:35 | EDM.PDOC ---
ED HPI GENERAL MEDICAL PROBLEM - General Chief Complaint: Allergic Reaction Stated Complaint: BEE STING, ALLERGIC Time Seen by Provider: 12/04/19 18:20 Source of Information: Reports: Patient, EMS, Family - History of Present Illness INITIAL COMMENTS - FREE TEXT/NARRATIVE: Kenan present to [place] ER via for acute allergic reaction due to bee sting left upper lower arm which occurred just 5 minutes before arrival. Patient has know bee sting allergy, previous EPI just and waiting for insurance to approve new EPI prescription which patient has not been able to strip picker. Patient has shortness of breath slight chest pressure with slight tongue swelling. Patient is alert and answering questions. is at bedside. Patient was immediately given EPI with some improvement of symptoms. Patient reported poor heart function and concern after acute allergic reaction symptoms have improved. Patient denies any continued chest pain or pressure. - Related Data Allergies Allergy/AdvReac Type Severity Reaction Status Date / Time bee venom protein (honey bee) Allergy Severe Anaphylactic Verified 12/04/19 18:38 Shock iodine Allergy Severe Anaphylactic Verified 12/04/19 18:38 Shock shellfish derived Allergy Severe Anaphylactic Verified 12/04/19 18:38 Shock gabapentin Allergy Cannot Verified 12/04/19 18:38 Remember IV contrast Allergy Severe Anaphylactic Uncoded 12/04/19 18:38 Shock tomato Allergy Hives Uncoded 12/04/19 18:38 Home Meds: Home Meds Rizatriptan Benzoate [Rizatriptan] 5 mg PO ASDIRECTED PRN 09/13/14 [History] carvediloL [Carvedilol] 6.25 mg PO BID 10/16/15 [History] EPINEPHrine [Epinephrine] 0.3 mg IJ ONETIME PRN #2 auto.injct 12/03/18 [Rx] Prochlorperazine [Compazine] 1 supp RECTAL Q8H PRN 08/16/19 [History] Sertraline [Zoloft] 1 tab PO DAILY 08/16/19 [History] Amitriptyline [Elavil] 100 mg PO BEDTIME 12/04/19 [History] EPINEPHrine [Epipen 2-Mark] 0.3 mg IJ DAILY PRN 30 Days #2 ml 12/04/19 [Rx] Midodrine 2.5 mg PO BID 12/04/19 [History] carvediloL [Carvedilol] 25 mg PO DAILY 12/04/19 [History] Past Medical History HEENT History: Reports: Cataract, Impaired Vision Cardiovascular History: Reports: CAD, Hypertension, Other (See Below) Other Cardiovascular History: blood infection weakened heart wall Gastrointestinal History: Reports: GI Bleed Genitourinary History: Reports: Renal Calculus Musculoskeletal History: Reports: Back Pain, Chronic, Osteoarthritis, Other (See Below) Other Musculoskeletal History: L knee injury 11/12/18 Neurological History: Reports: Concussion, Migraines Psychiatric History: Reports: Anxiety, Depression, PTSD, Other (See Below) Other Psychiatric History: pt has a support dog for ptsd/anxiety Dermatologic History: Reports: Cellulitis - Infectious Disease History Infectious Disease History: Reports: Chicken Pox - Past Surgical History HEENT Surgical History: Reports: Oral Surgery, Tonsillectomy Other Cardiovascular Surgeries/Procedures: currently wearing a cadiac monitor for 30 days. 08/16/19 GI Surgical History: Reports: Colonoscopy, EGD Male Surgical History: Reports: Lithotripsy (ESWL) Musculoskeletal Surgical History: Reports: Other (See Below) Other Musculoskeletal Surgeries/Procedures:: ulnar nerve transport x4- left side Social & Family History - Family History Family Medical History: Noncontributory - Caffeine Use Caffeine Use: Reports: None - Living Situation & Occupation Living situation: Reports: (lives with and two children in [place], [place].), with Spouse Occupation: Disabled ED ROS ALLERGIC REACTION - Review of Systems Review Of Systems: Comprehensive ROS is negative, except as noted in HPI. (feeling much better after medications. Unable to complete ROS initally but negative after improvement) Reason Not Obtained: acute reaction ED EXAM GENERAL NO PERIP PULSE - Physical Exam Exam: See Below Exam Limited By: No Limitations General Appearance: Alert, WD/WN, Moderate Distress (SOB and pale ) Eye Exam: Bilateral Eye: EOMI, Normal Inspection Ears: Normal External Exam, Hearing Grossly Normal Nose: Normal Inspection Throat/Mouth: Normal Teeth, No Airway Compromise (perceived throat swelling. Normal on exam during initial presentation. ). No: Normal Voice (raspy voice with lisp due to enlarging tongue) Head: No: Facial Swelling Neck: Normal Inspection Respiratory/Chest: No Respiratory Distress, Lungs Clear, Normal Breath Sounds Cardiovascular: Regular Rate, Rhythm (very high blood pressure noted) GI/Abdominal: Normal Bowel Sounds, Soft, Non-Tender (Male) Exam: Deferred Back Exam: Normal Inspection Extremities: Other (obvious bee sting with surround erythema and and edema left upper outer posterior arm ) Psychiatric: Normal Affect EKG INTERPRETATION EKG Date: 12/04/19 Time: 19:08 Rhythm: NSR Rate (Beats/Min): 79 [place]: Normal P-Wave: Present (premature) QRS: Normal ST-T: Normal QT: Prolonged (QTc 469 QT 409) Course - Vital Signs Last Recorded V/S: Last Vital Signs Temp 36.3 C 12/04/19 18:44 Pulse 80 12/04/19 19:53 Resp 14 12/04/19 19:53 BP 165/99 H 12/04/19 19:53 Pulse Ox 99 12/04/19 19:53 - Orders/Labs/Meds Orders: Active Orders 24 hr Category Date Time Status Cardiac Monitoring [RC] .As Directed Care 12/04/19 18:29 Active EKG Documentation Completion [RC] ASDIRECTED Care 12/04/19 18:51 Active Peripheral IV Care [RC] . DIRECTED Care 12/04/19 18:29 Active Vital Signs [RC] Q15M Care 12/04/19 18:28 Active Sodium Chloride 0.9% [Saline Flush] Med 12/04/19 18:28 Active 10 ml FLUSH ASDIRECTED PRN Peripheral IV Insertion Adult [OM.PC] Urgent Oth 12/04/19 18:28 Ordered EKG 12 Lead [EK] Urgent Ther 12/04/19 18:51 Ordered Medication Orders Sodium Chloride (Saline Flush) 10 ml FLUSH ASDIRECTED PRN PRN Reason: Keep Vein Open Last Admin: 12/04/19 18:31 Dose: 10 ml Documented by: LINUS Labs: Laboratory Tests 12/04/19 12/04/19 12/04/19 Range/Units 19:03 19:03 21:10 WBC 11.4 H (4.5-11.0) K/uL RBC 4.87 (4.30-5.90) M/uL Hgb 14.0 (12.0-15.0) g/dL Hct 41.6 (40.0-54.0) % MCV 85 (80-98) fL MCH 29 (27-31) pg MCHC 34 (32-36) % Plt Count 335 (150-400) K/uL Neut % (Auto) 51 (36-66) % Lymph % (Auto) 36 (24-44) % [place] % (Auto) 10 H (2-6) % Eos % (Auto) 3 (2-4) % Baso % (Auto) 1 (0-1) % Sodium 141 (140-148) mmol/L Potassium 3.5 L (3.6-5.2) mmol/L Chloride 104 (100-108) mmol/L Carbon Dioxide 27 (21-32) mmol/L Anion Gap 13.5 (5.0-14.0) mmol/L BUN 24 H (7-18) mg/dL Creatinine 1.6 H (0.8-1.3) mg/dL Est Cr Clr Drug Dosing 51.19 mL/min Estimated GFR (MDRD) 44 L (>60) Glucose 104 (74-106) mg/dL Calcium 9.1 (8.5-10.1) mg/dL Total Bilirubin 0.3 (0.2-1.0) mg/dL AST 21 (15-37) U/L ALT 42 (12-78) U/L Alkaline Phosphatase 112 (46-116) U/L Troponin I 0.145 H* 0.158 H* (0.000-0.056) ng/mL Total Protein 7.0 (6.4-8.2) g/dL Albumin 3.7 (3.4-5.0) g/dL Globulin 3.3 (2.3-3.5) g/dL Albumin/Globulin Ratio 1.1 L (1.2-2.2) Meds: Medications Generic Name Dose Route Start Last Admin Trade Name Freq PRN Reason Stop Dose Admin Sodium Chloride 10 ml 12/04/19 18:28 12/04/19 18:31 Saline Flush FLUSH 10 ml ASDIRECTED PRN Administration Keep Vein Open Discontinued Medications Generic Name Dose Route Start Last Admin Trade Name Freq PRN Reason Stop Dose Admin Diphenhydramine HCl 50 mg 12/04/19 18:28 12/04/19 18:32 Benadryl IVPUSH 12/04/19 18:29 50 mg ONETIME ONE Administration Epinephrine HCl 0.5 mg 12/04/19 18:28 12/04/19 18:31 Adrenalin IM 12/04/19 18:29 0.5 mg ONETIME ONE Administration Famotidine 20 mg 12/04/19 18:28 12/04/19 18:34 Pepcid IVPUSH 12/04/19 18:29 20 mg ONETIME ONE Administration Methylprednisolone Sodium Succinate 125 mg 12/04/19 18:28 12/04/19 18:31 Solu-Medrol IV 12/04/19 18:29 125 mg ONETIME ONE Administration - Re-Assessments/Exams Free Text/Narrative Re-Assessment/Exam: Patient was feeling much improved however due to acute allergic reaction and EPI stress response cardiac work-up will be completed with symptoms of SOB and Chest pressure immediately after bee sting. 12/04/19 19:08 EKG No acute changes. Troponin is elevated but lower than previous test likely normal baseline for patient. Patient will be monitored x 2-3 hours and possible repeat troponin to ensure stability. 12/04/19 19:43 Repeat Troponin drawn to ensure stability. Patient had near complete resolution of his symptoms and remained stable during ER visit. No recurrence of chest pain /pressure. 12/04/19 21:40 Departure - Departure Time of Disposition: 21:42 Disposition: Home, Self-Care 01 Clinical Impression: Elevated troponin, Allergic reaction to bee sting - Discharge Information Prescriptions: EPINEPHrine [Epipen 2-Mark] 0.3 mg IJ DAILY PRN 30 Days #2 ml PRN Reason: Allergies Instructions: Hives, Anaphylactic Reaction, Adult Referrals: Roman Metzger MD [Primary Care Provider] - Forms: ED Department Discharge Additional Instructions: 1. Go To Pharmacy to get EPI Pen x 2 to have available for repeat exposure for severe bee sting allergic reaction. 2. EPI is an insurance policy for 10 minutes of time to take Benadryl 50mg chewable or liquid and prompt ER visit for IV access and support. 3. Benadryl 25mg is recommended for the next 24 hours to prevent recurrence of severe allergy. 4. Zyrtec 10 mg daily during summer months to help prevent severe allergic reaction if recurrent exposure. 5. Consider purchasing insect repellent clothing or treating outdoor clothing with permethrin (not safe on skin). 6. Your EKG had not acute concerning changes today after acute allergic reaction. 7. Unfortunately, every time you have an acute allergic reaction needing EPI you have a risk of having a significant cardiac event (heart attack) due to increased stress. 8. Your troponin test was elevated and remained elevated at a low level which is normal for YOU. 9. Slight elevated troponin occurs when the heart muscle is injured and leaking muscle protein/enzyme. Sepsis Event Note (ED) - Focused Exam Vital Signs: Vital Signs Temp Pulse Resp BP Pulse Ox 12/04/19 19:53 80 14 165/99 H 99 12/04/19 19:17 79 20 168/100 H 100 12/04/19 18:50 75 19 171/102 H 100 12/04/19 18:44 36.3 C 85 25 H 182/111 H 100 12/04/19 18:35 36.3 C 85 25 H 182/111 H 100 - My Orders Last 24 Hours: My Active Orders 12/04/19 18:28 Vital Signs [RC] Q15M Sodium Chloride 0.9% [Saline Flush] 10 ml FLUSH ASDIRECTED PRN Peripheral IV Insertion Adult [OM.PC] Urgent 12/04/19 18:29 Cardiac Monitoring [RC] .As Directed Peripheral IV Care [RC] . DIRECTED 12/04/19 18:51 EKG Documentation Completion [RC] ASDIRECTED EKG 12 Lead [EK] Urgent - Assessment/Plan Last 24 Hours: My Active Orders 12/04/19 18:28 Vital Signs [RC] Q15M Sodium Chloride 0.9% [Saline Flush] 10 ml FLUSH ASDIRECTED PRN Peripheral IV Insertion Adult [OM.PC] Urgent 12/04/19 18:29 Cardiac Monitoring [RC] .As Directed Peripheral IV Care [RC] . DIRECTED 12/04/19 18:51 EKG Documentation Completion [RC] ASDIRECTED EKG 12 Lead [EK] Urgent
[2019-12-04 19:54] VITALS: BP 165/99; PULSE 80
== END 2019-12-04 22:12 | disposition home or self-care (01) ==
LOC: JP.ED 18:20
DX: T63.441A Toxic effect of venom of bees, accidental (unintentional), initial encounter (principal); R79.89 Other specified abnormal findings of blood chemistry; F41.9 Anxiety disorder, unspecified; F32.9 Major depressive disorder, single episode, unspecified; I25.10 Atherosclerotic heart disease of native coronary artery without angina pectoris; I10 Essential (primary) hypertension; Z91.048 Other nonmedicinal substance allergy status; Z91.013 Allergy to seafood; Z91.041 Radiographic dye allergy status; Z88.8 Allergy status to other drugs, medicaments and biological substances; Z79.899 Other long term (current) drug therapy
CPT/HCPCS: 36415; 80053; 84484; 85025; 93005; 96372; 96374; 96375; 99284; J0171; J1200; J2930; J3490

== ENCOUNTER 2020-12-01 15:28 | Emergency (ER) | payer MEDICARE, MEDICAID ==
[2020-12-01] MEDS ORDERED: Bupivacaine 0.5% 10 ML SDV INJECT ONE (15:51)
[2020-12-01 15:52] VITALS: BP 100/85; PULSE 53
--- NOTE | 2020-12-01 15:53 | EDM.PDOC ---
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 No other injury. Patient has a laceration to the pulp of the middle finger on the right hand. Onset: Sudden Duration: Hour(s): (Within the last hour) Location: Reports: Upper Extremity, Right Quality: Reports: Sharp, Stabbing Associated Symptoms: Reports: No Other Symptoms Left Finger-Middle Pain Score (Numeric/FACES): 8 - Related Data Allergies Allergy/AdvReac Type Severity Reaction Status Date / Time bee venom protein (honey bee) Allergy Severe Anaphylactic Verified 12/01/20 15:46 Shock Iodinated Contrast Media Allergy Severe Anaphylactic Verified 12/01/20 15:46 Shock iodine Allergy Severe Anaphylactic Verified 12/01/20 15:46 Shock shellfish derived Allergy Severe Anaphylactic Verified 12/01/20 15:46 Shock gabapentin Allergy Cannot Verified 12/01/20 15:46 Remember tomato Allergy Hives Verified 12/01/20 15:46 Home Meds: Home Meds Rizatriptan Benzoate [Rizatriptan] 5 mg PO ASDIRECTED PRN 09/13/14 [History] Prochlorperazine [Compazine] 1 supp RECTAL Q8H PRN 08/16/19 [History] Sertraline [Zoloft] 1 tab PO DAILY 08/16/19 [History] Amitriptyline [Elavil] 100 mg PO BEDTIME 12/04/19 [History] EPINEPHrine [Epipen 2-Mark] 0.3 mg IJ DAILY PRN 30 Days #2 ml 12/04/19 [Rx] Midodrine 2.5 mg PO BID 12/04/19 [History] carvediloL [Carvedilol] 25 mg PO DAILY 12/04/19 [History] Past Medical History HEENT History: Reports: Cataract, Impaired Vision Cardiovascular History: Reports: CAD, Hypertension, Other (See Below) Other Cardiovascular History: blood infection weakened heart wall Gastrointestinal History: Reports: GI Bleed Genitourinary History: Reports: Renal Calculus Musculoskeletal History: Reports: Back Pain, Chronic, Osteoarthritis, Other (See Below) Other Musculoskeletal History: L knee injury 11/12/18 Neurological History: Reports: Concussion, Migraines Psychiatric History: Reports: Anxiety, Depression, PTSD, Other (See Below) Other Psychiatric History: pt has a support dog for ptsd/anxiety Dermatologic History: Reports: Cellulitis - Infectious Disease History Infectious Disease History: Reports: Chicken Pox - Past Surgical History Head Surgeries/Procedures: Reports: None HEENT Surgical History: Reports: Oral Surgery, Tonsillectomy Cardiovascular Surgical History: Reports: Other (See Below) Other Cardiovascular Surgeries/Procedures: currently wearing a cadiac monitor for 30 days. 08/16/19 GI Surgical History: Reports: Colonoscopy, EGD Male Surgical History: Reports: Lithotripsy (ESWL) Neurological Surgical History: Reports: None Musculoskeletal Surgical History: Reports: Other (See Below) Other Musculoskeletal Surgeries/Procedures:: ulnar nerve transport x4- left side Dermatological Surgical History: Reports: None Social & Family History - Family History Family Medical History: No Pertinent Family History - Tobacco Use Tobacco Use Status *Q: Never Tobacco User Second Hand Smoke Exposure: No - Caffeine Use Caffeine Use: Reports: Soda - Recreational Drug Use Recreational Drug Use: No - Living Situation & Occupation Living situation: Reports: (lives with and two children in [facility]), with Spouse Occupation: Disabled ED ROS GENERAL - Review of Systems Review Of Systems: See Below Constitutional: Denies: Fever, Chills HEENT: Reports: No Symptoms Respiratory: Reports: No Symptoms Cardiovascular: Reports: No Symptoms GI/Abdominal: Reports: No Symptoms : Reports: No Symptoms Musculoskeletal: Reports: No Symptoms Neurological: Reports: Other (Long history of migraine headaches but no current symptoms) ED EXAM, SKIN/RASH Exam: See Below Exam Limited By: No Limitations General Appearance: Alert, No Apparent Distress Head: Atraumatic Respiratory/Chest: No Respiratory Distress, Lungs Clear Extremities: Other (Exam is otherwise limited to the left hand. Of the middle finger the patient has a 2 cm laceration at the tip of the finger into the pulp. It does not involve the nail. It is not deep enough to involve deep structures.) Neurological: Alert, Oriented Psychiatric: Normal Affect, Normal Mood Course - Vital Signs Last Recorded V/S: Last Vital Signs Temp 97.1 F 12/01/20 15:51 Pulse 53 L 12/01/20 15:51 Resp 16 12/01/20 15:51 BP 100/85 12/01/20 15:51 Pulse Ox 98 12/01/20 15:51 - Orders/Labs/Meds Meds: Medications Discontinued Medications Generic Name Dose Route Start Last Admin Trade Name Torin PRN Reason Stop Dose Admin Bacitracin 1 dose 12/01/20 16:12 12/01/20 16:23 Bacitracin Oint 1 Gm U/D Packet TOP 12/01/20 16:13 1 dose ONETIME ONE Administration Bupivacaine HCl 10 ml 12/01/20 15:51 12/01/20 15:57 Bupivacaine 0.5% 10 Ml Sdv INJECT 12/01/20 15:52 Not Given ONETIME ONE - Re-Assessments/Exams Free Text/Narrative Re-Assessment/Exam: 12/01/20 16:13 The wound was anesthetized with 1% lidocaine with epinephrine, cleansed thoroughly with saline, and after a small amount of undermining three 4-0 Ethilon sutures were used to close the wound. Topical bacitracin and a Band-Aid was applied, patient was supplied with a foam aluminum splint to protect the finger. Sutures can be removed in 10 days. Recheck sooner if concerns of infection or not healing satisfactorily. Departure - Departure Time of Disposition: 16:48 Disposition: Home, Self-Care 01 Clinical Impression: Laceration of finger Qualifiers: Encounter type: initial encounter Finger: middle finger Damage to nail status: without damage Foreign body presence: without foreign body Laterality: right Qualified Code(s): S61.212A - Laceration without foreign body of right middle finger without damage to nail, initial encounter - Discharge Information Instructions: Laceration Care, Adult Referrals: Roman Metzger MD [Primary Care Provider] - Forms: ED Department Discharge Care Plan Goals: Keep wound covered and clean while healing, use splint for protection. Sutures can be removed in 10 days, return sooner if concerns of infection or not healing satisfactorily. Sepsis Event Note (ED) - Focused Exam Vital Signs: Vital Signs Temp Pulse Resp BP Pulse Ox 12/01/20 15:51 97.1 F 53 L 16 100/85 98
[2020-12-01] MEDS ORDERED: Bacitracin Oint 1 GM U/D Packet TOP ONE (16:12)
== END 2020-12-01 16:49 | disposition home or self-care (01) ==
LOC: JP.ED 15:28
DX: S61.212A Laceration without foreign body of right middle finger without damage to nail, initial encounter (principal); I25.10 Atherosclerotic heart disease of native coronary artery without angina pectoris; I10 Essential (primary) hypertension; Z91.013 Allergy to seafood; Z88.5 Allergy status to narcotic agent; Z91.018 Allergy to other foods; Z91.041 Radiographic dye allergy status; W27.0XXA Contact with workbench tool, initial encounter
CPT/HCPCS: 12001; 99282-25

== ENCOUNTER 2020-12-20 10:56 | Emergency (ER) | payer MEDICARE, MEDICAID ==
[2020-12-20] MEDS ORDERED: Sodium Chloride 0.9% 10 ML Syringe FLUSH PRN (11:08)
[2020-12-20] MEDS ORDERED: Aspirin 81 MG Tab.Chew PO ONE (11:09)
--- NOTE | 2020-12-20 11:19 | EDM.PDOC ---
ED HPI GENERAL MEDICAL PROBLEM - General Chief Complaint: Chest Pain Stated Complaint: SHORTNESS OF BREATH, CHEST PAIN Time Seen by Provider: 12/20/20 11:05 Source of Information: Reports: Patient, Old Records, RN History Limitations: Reports: No Limitations - History of Present Illness INITIAL COMMENTS - FREE TEXT/NARRATIVE: 65 yo non-smoking male with no hx of CAD presents with L sided CP that began when at work today. He was not doing anything especially physical. He denies injury to his chest. Pain is worse with deep breathing, coughing, or sitting up. No SOB, nausea or diaphoresis. He can put a finger on the area of pain. Onset: Today Onset Date: 12/20/20 Duration: Minutes: Location: Reports: Chest (left) Quality: Reports: Sharp Severity: Moderate Improves with: Reports: Rest Worsens with: Reports: Movement Context: Reports: Other (See HPI) Associated Symptoms: Reports: No Other Symptoms. 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) Left Chest Pain Score (Numeric/FACES): 7 - Related Data Allergies Allergy/AdvReac Type Severity Reaction Status Date / Time bee venom protein (honey bee) Allergy Severe Anaphylactic Verified 12/20/20 11:03 Shock Iodinated Contrast Media Allergy Severe Anaphylactic Verified 12/20/20 11:03 Shock iodine Allergy Severe Anaphylactic Verified 12/20/20 11:03 Shock shellfish derived Allergy Severe Anaphylactic Verified 12/20/20 11:03 Shock gabapentin Allergy Cannot Verified 12/20/20 11:03 Remember tomato Allergy Hives Verified 12/20/20 11:03 Home Meds: Home Meds Rizatriptan Benzoate [Rizatriptan] 5 mg PO ASDIRECTED PRN 09/13/14 [History] Prochlorperazine [Compazine] 1 supp RECTAL Q8H PRN 08/16/19 [History] Sertraline [Zoloft] 1 tab PO ASDIRECTED PRN 08/16/19 [History] Amitriptyline [Elavil] 100 mg PO BEDTIME 12/04/19 [History] EPINEPHrine [Epipen 2-Mark] 0.3 mg IJ DAILY PRN 30 Days #2 ml 12/04/19 [Rx] Midodrine 2.5 mg PO BID 12/04/19 [History] carvediloL [Carvedilol] 25 mg PO DAILY 12/04/19 [History] Past Medical History HEENT History: Reports: Cataract, Impaired Vision Cardiovascular History: Reports: CAD, Hypertension, Other (See Below) Other Cardiovascular History: blood infection weakened heart wall Gastrointestinal History: Reports: GI Bleed Genitourinary History: Reports: Renal Calculus Musculoskeletal History: Reports: Back Pain, Chronic, Osteoarthritis, Other (See Below) Other Musculoskeletal History: L knee injury 11/12/18 Neurological History: Reports: Concussion, Migraines Psychiatric History: Reports: Anxiety, Depression, PTSD, Other (See Below) Other Psychiatric History: pt has a support dog for ptsd/anxiety Dermatologic History: Reports: Cellulitis - Infectious Disease History Infectious Disease History: Reports: Chicken Pox - Past Surgical History Head Surgeries/Procedures: Reports: None HEENT Surgical History: Reports: Oral Surgery, Tonsillectomy GI Surgical History: Reports: Colonoscopy, EGD Male Surgical History: Reports: Lithotripsy (ESWL) Neurological Surgical History: Reports: None Musculoskeletal Surgical History: Reports: Other (See Below) Other Musculoskeletal Surgeries/Procedures:: ulnar nerve transport x4- left side Dermatological Surgical History: Reports: None Social & Family History - Family History Family Medical History: No Pertinent Family History - Tobacco Use Tobacco Use Status *Q: Never Tobacco User - Caffeine Use Caffeine Use: Reports: None - Recreational Drug Use Recreational Drug Use: No - Living Situation & Occupation Living situation: Reports: (lives with and two children in [facility]), with Spouse Occupation: Disabled ED ROS GENERAL - Review of Systems Review Of Systems: See Below Constitutional: Reports: No Symptoms HEENT: Reports: No Symptoms Respiratory: Reports: Pleuritic Chest Pain Cardiovascular: Reports: Chest Pain (left) GI/Abdominal: Reports: No Symptoms : Reports: No Symptoms Musculoskeletal: Reports: No Symptoms Skin: Reports: No Symptoms Neurological: Reports: No Symptoms ED EXAM, GENERAL - Physical Exam Exam: See Below Exam Limited By: No Limitations General Appearance: Alert, WD/WN, No Apparent Distress Eye Exam: Bilateral Eye: Normal Inspection Ears: Normal External Exam, Normal Canal, Hearing Grossly Normal, Normal TMs Ear Exam: Bilateral Ear: Auricle Normal, Canal Normal Nose: Normal Inspection, No Blood Throat/Mouth: Normal Inspection, Normal Lips, Normal Oropharynx, Normal Voice, No Airway Compromise Head: Atraumatic, Normocephalic Neck: Normal Inspection Respiratory/Chest: No Respiratory Distress, Lungs Clear, Normal Breath Sounds, No Accessory Muscle Use. No: Chest Non-Tender (local tenderness L chest wall) Cardiovascular: Regular Rate, Rhythm, No Edema Extremities: Normal Inspection, Normal Range of Motion, Non-Tender, No Pedal Edema. No: Pedal Edema Neurological: Alert, Oriented, CN II-XII Intact, Normal Cognition, No Motor/Sensory Deficits Psychiatric: Normal Affect, Normal Mood Skin Exam: Warm, Dry, Intact, Normal Color, No Rash #1 Interpretation EKG Date: 12/20/20 Time: 11:30 Rhythm: NSR Rate (Beats/Min): 70 [place]: Normal P-Wave: Present QRS: Normal ST-T: Normal QT: Prolonged Comparison: No Change Course - Vital Signs Last Recorded V/S: Last Vital Signs Temp 36.4 C 12/20/20 11:00 Pulse 82 12/20/20 11:00 Resp 21 H 12/20/20 11:00 BP 140/96 H 12/20/20 11:00 Pulse Ox 97 12/20/20 11:00 - Orders/Labs/Meds Orders: Active Orders 24 hr Category Date Time Status Cardiac Monitoring [RC] .As Directed Care 12/20/20 11:08 Active EKG Documentation Completion [RC] ASDIRECTED Care 12/20/20 11:08 Active Sodium Chloride 0.9% [Saline Flush] Med 12/20/20 11:08 Active 10 ml FLUSH ASDIRECTED PRN Saline Lock Insert [OM.PC] Routine Oth 12/20/20 11:08 Ordered EKG 12 Lead [EK] Routine Ther 12/20/20 11:08 Ordered Medication Orders Sodium Chloride (Sodium Chloride 0.9% 10 Ml Syringe) 10 ml FLUSH ASDIRECTED PRN PRN Reason: Keep Vein Open Last Admin: 12/20/20 11:17 Dose: 10 ml Documented by: MOE Labs: Laboratory Tests 12/20/20 Range/Units 11:39 Troponin I 0.117 H* (0.000-0.056) ng/mL Meds: Medications Generic Name Dose Route Start Last Admin Trade Name Freq PRN Reason Stop Dose Admin Sodium Chloride 10 ml 12/20/20 11:08 12/20/20 11:17 Sodium Chloride 0.9% 10 Ml Syringe FLUSH 10 ml ASDIRECTED PRN Administration Keep Vein Open Discontinued Medications Generic Name Dose Route Start Last Admin Trade Name Torin PRN Reason Stop Dose Admin Aspirin 324 mg 12/20/20 11:09 12/20/20 11:19 Aspirin 81 Mg Tab.Chew PO 12/20/20 11:10 324 mg ONETIME ONE Administration Ketorolac Tromethamine 30 mg 12/20/20 11:39 12/20/20 11:56 Ketorolac 30 Mg/Ml Sdv IM 12/20/20 11:40 30 mg ONETIME ONE Administration Departure - Departure Time of Disposition: 12:15 Disposition: Home, Self-Care 01 Condition: Fair Clinical Impression: Chest wall pain Instructions: Chest Wall Pain, [id number] Referrals: Roman Metzger MD [Primary Care Provider] - Forms: ED Department Discharge Additional Instructions: Take ibuprofen 400 mg every 6 hrs with food for pain relief. Recheck with your provider by Thursday if not improving. May add acetaminophen up to 1000 mg every 6 hrs for added relief. Sepsis Event Note (ED) - Evaluation Sepsis Screening Result: No Definite Risk - Focused Exam Vital Signs: Vital Signs Temp Pulse Resp BP Pulse Ox 12/20/20 11:00 36.4 C 82 21 H 140/96 H 97 - My Orders Last 24 Hours: My Active Orders 12/20/20 11:08 Cardiac Monitoring [RC] .As Directed EKG Documentation Completion [RC] ASDIRECTED Sodium Chloride 0.9% [Saline Flush] 10 ml FLUSH ASDIRECTED PRN Saline Lock Insert [OM.PC] Routine EKG 12 Lead [EK] Routine - Assessment/Plan Last 24 Hours: My Active Orders 12/20/20 11:08 Cardiac Monitoring [RC] .As Directed EKG Documentation Completion [RC] ASDIRECTED Sodium Chloride 0.9% [Saline Flush] 10 ml FLUSH ASDIRECTED PRN Saline Lock Insert [OM.PC] Routine EKG 12 Lead [EK] Routine
[2020-12-20] MEDS ORDERED: Ketorolac 30 MG/ML SDV IM ONE (11:39)
[2020-12-20 12:17] VITALS: BP 155/106; PULSE 75
== END 2020-12-20 12:23 | disposition home or self-care (01) ==
LOC: JP.ED 10:56
DX: R07.89 Other chest pain (principal); I25.10 Atherosclerotic heart disease of native coronary artery without angina pectoris; I10 Essential (primary) hypertension; M19.90 Unspecified osteoarthritis, unspecified site; Z91.030 Bee allergy status; Z91.041 Radiographic dye allergy status; Z88.8 Allergy status to other drugs, medicaments and biological substances; Z91.013 Allergy to seafood; Z91.018 Allergy to other foods; Z79.899 Other long term (current) drug therapy
CPT/HCPCS: 36415; 84484; 93005; 96372; 99284; A9270; J1885

== ENCOUNTER 2020-12-23 13:24 | Emergency (ER) | payer MEDICARE, MEDICAID ==
[2020-12-23 13:46] VITALS: BP 135/64; PULSE 65
[2020-12-23] MEDS ORDERED: Bacitracin Oint 1 GM U/D Packet TOP ONE (13:56)
--- NOTE | 2020-12-23 14:10 | EDM.PDOC ---
ED HPI GENERAL MEDICAL PROBLEM - General Chief Complaint: Laceration Stated Complaint: CUT ON L THUMB Time Seen by Provider: 12/23/20 13:57 Source of Information: Reports: Patient, Family (), RN - History of Present Illness INITIAL COMMENTS - FREE TEXT/NARRATIVE: Kenan is a 65 year ol male well known to ER due to recurrent lacerations with working at home on projects. Kenan cut the tip of his left thumb earlier today then cut the extensor surface of his left thumb about 1 hr before presenting. Kenan is unable to move his thumb normal due to weakness. Last tetanus was 2 eyars ago. - Related Data Allergies Allergy/AdvReac Type Severity Reaction Status Date / Time bee venom protein (honey bee) Allergy Severe Anaphylactic Verified 12/23/20 13:48 Shock Iodinated Contrast Media Allergy Severe Anaphylactic Verified 12/23/20 13:48 Shock iodine Allergy Severe Anaphylactic Verified 12/23/20 13:48 Shock shellfish derived Allergy Severe Anaphylactic Verified 12/23/20 13:48 Shock gabapentin Allergy Cannot Verified 12/23/20 13:48 Remember tomato Allergy Hives Verified 12/23/20 13:48 Home Meds: Home Meds Rizatriptan Benzoate [Rizatriptan] 5 mg PO ASDIRECTED PRN 09/13/14 [History] Prochlorperazine [Compazine] 1 supp RECTAL Q8H PRN 08/16/19 [History] Sertraline [Zoloft] 1 tab PO ASDIRECTED PRN 08/16/19 [History] Amitriptyline [Elavil] 100 mg PO BEDTIME 12/04/19 [History] EPINEPHrine [Epipen 2-Mark] 0.3 mg IJ DAILY PRN 30 Days #2 ml 12/04/19 [Rx] Midodrine 2.5 mg PO BID 12/04/19 [History] carvediloL [Carvedilol] 25 mg PO DAILY 12/04/19 [History] Past Medical History HEENT History: Reports: Cataract, Impaired Vision Cardiovascular History: Reports: CAD, Hypertension, Other (See Below) Other Cardiovascular History: blood infection weakened heart wall Gastrointestinal History: Reports: GI Bleed Genitourinary History: Reports: Renal Calculus Musculoskeletal History: Reports: Back Pain, Chronic, Osteoarthritis, Other (See Below) Other Musculoskeletal History: L knee injury 11/12/18 Neurological History: Reports: Concussion, Migraines Psychiatric History: Reports: Anxiety, Depression, PTSD, Other (See Below) Other Psychiatric History: pt has a support dog for ptsd/anxiety Dermatologic History: Reports: Cellulitis - Infectious Disease History Infectious Disease History: Reports: Chicken Pox - Past Surgical History Head Surgeries/Procedures: Reports: None HEENT Surgical History: Reports: Oral Surgery, Tonsillectomy Cardiovascular Surgical History: Reports: Other (See Below) Other Cardiovascular Surgeries/Procedures: currently wearing a cadiac monitor for 30 days. 08/16/19 GI Surgical History: Reports: Colonoscopy, EGD Male Surgical History: Reports: Lithotripsy (ESWL) Neurological Surgical History: Reports: None Musculoskeletal Surgical History: Reports: Other (See Below) Other Musculoskeletal Surgeries/Procedures:: ulnar nerve transport x4- left side Dermatological Surgical History: Reports: None Social & Family History - Family History Family Medical History: No Pertinent Family History - Tobacco Use Tobacco Use Status *Q: Never Tobacco User - Caffeine Use Caffeine Use: Reports: None - Living Situation & Occupation Living situation: Reports: (lives with and two children in [place], [place].), with Spouse Occupation: Disabled ED ROS GENERAL - Review of Systems Review Of Systems: Comprehensive ROS is negative, except as noted in HPI. ED EXAM, SKIN/RASH Exam: See Below Exam Limited By: No Limitations General Appearance: Alert, WD/WN, Mild Distress Eye Exam: Bilateral Eye: Normal Inspection Ears: Hearing Grossly Normal Nose: Normal Inspection Throat/Mouth: Normal Inspection, Normal Voice, No Airway Compromise Head: Atraumatic Neck: Normal Inspection, Full Range of Motion Respiratory/Chest: No Respiratory Distress, Lungs Clear Cardiovascular: Normal Peripheral Pulses Neurological: Alert, Oriented, CN II-XII Intact, Normal Cognition, Normal Gait Psychiatric: Normal Affect, Normal Mood Skin: Other (small laceration tip of thumb with lareger laceration over extensor surface of thumb just distal of the first MCP joint. ) ED SKIN PROCEDURES - Laceration/Wound Repair Left Proximal Digit - 1st (Thumb) Appearance: Superficial Distal NVT: Neuro & Vascular Intact Local Anesthetic Volume: 3cc Skin Prep: Saline Saline Irrigation (cc's): 250 Exploration/Debridement/Repair: Wound Explored, In a Bloodless Field, Explored to Base Closed with: Sutures Lac/Wound length In cm: 3.0 Suture Size: 5-0 # of Sutures: 4 Suture Type: Nylon, Simple Sterile Dressing Applied: Nurse Tetanus Status Addressed: Yes Course - Vital Signs Last Recorded V/S: Last Vital Signs Temp 35.9 C L 12/23/20 13:54 Pulse 65 12/23/20 13:54 Resp 16 12/23/20 13:54 BP 135/64 12/23/20 13:54 Pulse Ox 99 12/23/20 13:54 - Orders/Labs/Meds Orders: Active Orders 24 hr Category Date Time Status Bacitracin [Bacitracin Oint 1 GM] Med 12/23/20 13:56 Once 1 dose TOP ONETIME ONE Medication Orders Lidocaine HCl (Lidocaine 1% 5 Ml Sdv) 5 ml INJECT ONETIME ONE Stop: 12/23/20 13:57 Meds: Medications Generic Name Dose Route Start Last Admin Trade Name Torin PRN Reason Stop Dose Admin Lidocaine HCl 5 ml 12/23/20 13:56 Lidocaine 1% 5 Ml Sdv INJECT 12/23/20 13:57 ONETIME ONE Departure - Departure Time of Disposition: 14:42 Disposition: Home, Self-Care 01 Clinical Impression: Laceration of thumb - Discharge Information Instructions: Laceration Care, Adult Referrals: Roman Metzger MD [Primary Care Provider] - Additional Instructions: 1. Keep wound clean, dry and cover for the next 48 hours. 2. Tylenol/Ibuprofen for pain as needed. 3. Wound check in 5 days for recheck to ensure no signs of infection. 4. Suture removal in 7-10 days at clinic. 5. May wash with soap and water every am and pm of when ever dressing is saturation. Sepsis Event Note (ED) - Evaluation Sepsis Screening Result: No Definite Risk - Focused Exam Vital Signs: Vital Signs Temp Pulse Resp BP Pulse Ox 12/23/20 13:54 35.9 C L 65 16 135/64 99 12/23/20 13:45 35.9 C L 65 16 135/64 99 - My Orders Last 24 Hours: My Active Orders 12/23/20 13:56 Bacitracin [Bacitracin Oint 1 GM] 1 dose TOP ONETIME ONE - Assessment/Plan Last 24 Hours: My Active Orders 12/23/20 13:56 Bacitracin [Bacitracin Oint 1 GM] 1 dose TOP ONETIME ONE
== END 2020-12-23 15:03 | disposition home or self-care (01) ==
LOC: JP.ED 13:24
DX: S61.012A Laceration without foreign body of left thumb without damage to nail, initial encounter (principal); I25.10 Atherosclerotic heart disease of native coronary artery without angina pectoris; I10 Essential (primary) hypertension; Z91.030 Bee allergy status; Z91.041 Radiographic dye allergy status; Z91.013 Allergy to seafood; Z91.018 Allergy to other foods; Z88.5 Allergy status to narcotic agent; W26.8XXA Contact with other sharp object(s), not elsewhere classified, initial encounter; Y92.009 Unspecified place in unspecified non-institutional (private) residence as the place of occurrence of the external cause
CPT/HCPCS: 12002; 99282-25

== ENCOUNTER 2021-02-11 15:29 | Emergency (ER) | payer MEDICARE, MEDICAID ==
--- NOTE | 2021-02-11 15:56 | EDM.PDOC ---
ED HPI GENERAL MEDICAL PROBLEM - General Chief Complaint: General Stated Complaint: MEDICATION REACTION VIA [facility]TH Time Seen by Provider: 02/11/21 15:30 Source of Information: Reports: Patient, EMS, Family History Limitations: Reports: No Limitations - History of Present Illness INITIAL COMMENTS - FREE TEXT/NARRATIVE: 65-year-old male went to work this morning, was at home taking a nap and his came home. He sat up and had a mild headache so asked for Tylenol, she thought he looked clammy and weak so told him to lay back down. After 30 minutes to 60 minutes he still did not feel well so she set him up and was going to give him a Tylenol when he fainted. She called EMS, glucose was within normal limits and his vitals other than hypertension were reassuring. He arr ived with mild photophobia but otherwise neurologically intact, somewhat confused. He has been exposed to Covid but is also completely vaccinated. Onset: Unknown/Unsure Duration: Hour(s): (He has had symptoms for the last several hours) Location: Reports: Generalized - Related Data Allergies Allergy/AdvReac Type Severity Reaction Status Date / Time bee venom protein (honey bee) Allergy Severe Anaphylactic Verified 02/11/21 15:35 Shock Iodinated Contrast Media Allergy Severe Anaphylactic Verified 02/11/21 15:35 Shock iodine Allergy Severe Anaphylactic Verified 02/11/21 15:35 Shock shellfish derived Allergy Severe Anaphylactic Verified 02/11/21 15:35 Shock gabapentin Allergy Cannot Verified 02/11/21 15:35 Remember tomato Allergy Hives Verified 02/11/21 15:35 Home Meds: Home Meds Rizatriptan Benzoate [Rizatriptan] 5 mg PO ASDIRECTED PRN 09/13/14 [History] Prochlorperazine [Compazine] 1 supp RECTAL Q8H PRN 08/16/19 [History] Sertraline [Zoloft] 1 tab PO ASDIRECTED PRN 08/16/19 [History] Amitriptyline [Elavil] 100 mg PO BEDTIME 12/04/19 [History] EPINEPHrine [Epipen 2-Mark] 0.3 mg IJ DAILY PRN 30 Days #2 ml 12/04/19 [Rx] Midodrine 2.5 mg PO BID 12/04/19 [History] carvediloL [Carvedilol] 25 mg PO BID 12/04/19 [History] Past Medical History HEENT History: Reports: Cataract, Impaired Vision Cardiovascular History: Reports: CAD, Hypertension, Other (See Below) Other Cardiovascular History: blood infection weakened heart wall Gastrointestinal History: Reports: GI Bleed Genitourinary History: Reports: Renal Calculus Musculoskeletal History: Reports: Back Pain, Chronic, Osteoarthritis, Other (See Below) Other Musculoskeletal History: L knee injury 11/12/18 Neurological History: Reports: Concussion, Migraines Psychiatric History: Reports: Anxiety, Depression, PTSD, Other (See Below) Other Psychiatric History: pt has a support dog for ptsd/anxiety Dermatologic History: Reports: Cellulitis - Infectious Disease History Infectious Disease History: Reports: Chicken Pox - Past Surgical History Head Surgeries/Procedures: Reports: None HEENT Surgical History: Reports: Oral Surgery, Tonsillectomy Cardiovascular Surgical History: Reports: Other (See Below) Other Cardiovascular Surgeries/Procedures: currently wearing a cadiac monitor for 30 days. 08/16/19 GI Surgical History: Reports: Colonoscopy, EGD Male Surgical History: Reports: Lithotripsy (ESWL) Neurological Surgical History: Reports: None Musculoskeletal Surgical History: Reports: Other (See Below) Other Musculoskeletal Surgeries/Procedures:: ulnar nerve transport x4- left side Dermatological Surgical History: Reports: None Social & Family History - Family History Family Medical History: No Pertinent Family History - Tobacco Use Tobacco Use Status *Q: Never Tobacco User - Caffeine Use Caffeine Use: Reports: None - Recreational Drug Use Recreational Drug Use: No - Living Situation & Occupation Living situation: Reports: (lives with and two children in [facility]), with Spouse Occupation: Disabled ED ROS GENERAL - Review of Systems Review Of Systems: See Below Constitutional: Reports: Chills, Malaise. Denies: Fever HEENT: Reports: Other Respiratory: Denies: Shortness of Breath, Wheezing Cardiovascular: Denies: Chest Pain, Palpitations GI/Abdominal: Reports: Nausea. Denies: Abdominal Pain, Constipation, Vomiting : Reports: No Symptoms Musculoskeletal: Reports: Muscle Pain (Some generalized mild body aches, no focal complaints) Skin: Denies: Bruising, Rash Neurological: Reports: Dizziness, Headache, Syncope, Difficulty Walking, Weakness Psychiatric: Reports: No Symptoms ED EXAM, GENERAL - Physical Exam Exam: See Below Exam Limited By: No Limitations General Appearance: Alert, No Apparent Distress, Other (Patient is acting somewhat confused, sedated and tired but not distressed) Eye Exam: Bilateral Eye: EOMI, PERRL Throat/Mouth: Normal Inspection Head: Atraumatic, Normocephalic Neck: Normal Inspection, Non-Tender Respiratory/Chest: No Respiratory Distress, Lungs Clear Cardiovascular: Regular Rate, Rhythm. No: Tachycardia GI/Abdominal: Soft, Non-Tender, Other (Patient does have some general discomfort with palpation of the abdomen but no focal tenderness) Extremities: Normal Inspection, Other (A few chronic appearing excoriations of the lower extremities but no edema, venous stasis changes or rashes.) Neurological: Alert, Slow to Respond Psychiatric: Depressed Mood, Flat Affect Skin Exam: Warm, Dry Course - Vital Signs Last Recorded V/S: Last Vital Signs Temp 97.8 F 02/11/21 15:34 Pulse 87 02/11/21 15:34 Resp 18 02/11/21 15:34 BP 184/126 H 02/11/21 15:34 Pulse Ox 97 02/11/21 15:34 - Orders/Labs/Meds Orders: Active Orders 24 hr Category Date Time Status CORONAVIRUS COVID-19 TANESHA [MOLEC] Stat Lab 02/11/21 16:16 Ordered EKG 12 Lead [EK] Routine Ther 02/11/21 15:57 Ordered Labs: Laboratory Tests 02/11/21 02/11/21 Range/Units 16:05 16:05 WBC 8.2 (4.5-11.0) K/uL RBC 5.10 (4.30-5.90) M/uL Hgb 14.7 (12.0-15.0) g/dL Hct 43.2 (40.0-54.0) % MCV 85 (80-98) fL MCH 29 (27-31) pg MCHC 34 (32-36) % Plt Count 298 (150-400) K/uL Neut % (Auto) 53.3 (36-66) % Lymph % (Auto) 30.7 (24-44) % [place] % (Auto) 10.8 H (2-6) % Eos % (Auto) 4.2 H (2-4) % Baso % (Auto) 1.0 (0-1) % Sodium 135 L (140-148) mmol/L Potassium 3.6 (3.6-5.2) mmol/L Chloride 103 (100-108) mmol/L Carbon Dioxide 24 (21-32) mmol/L Anion Gap 11.6 (5.0-14.0) mmol/L BUN 23 H (7-18) mg/dL Creatinine 1.3 (0.8-1.3) mg/dL Est Cr Clr Drug Dosing 60.96 mL/min Estimated GFR (MDRD) 55 L (>60) Glucose 106 (74-106) mg/dL Calcium 9.0 (8.5-10.1) mg/dL Total Bilirubin 0.1 L D (0.2-1.0) mg/dL AST 25 (15-37) U/L ALT 45 (12-78) U/L Alkaline Phosphatase 109 (46-116) U/L Troponin I 0.143 H* (0.000-0.056) ng/mL Total Protein 6.7 (6.4-8.2) g/dL Albumin 3.6 (3.4-5.0) g/dL Globulin 3.1 (2.3-3.5) g/dL Albumin/Globulin Ratio 1.2 (1.2-2.2) - Re-Assessments/Exams Free Text/Narrative Re-Assessment/Exam: 02/11/21 17:18 CBC, CMP and troponin were obtained as well as a Covid test. CT of the head was done which was normal. CBC was normal, CMP did reveal a mildly elevated troponin at 0.14 but this is a chronic finding for this patient, he had a normal angiogram 2 years ago but has been having mildly elevated troponins for the last 7 years. He developed a headache while he was in the emergency room which worsened, he was offered IM injections but wanted tramadol to go home with. He was sent home with 15 doses and can return if not improving after 24 to 48 hours.. 02/11/21 17:19 Blood pressure was elevated on arrival but normalized while in the emergency room. Departure - Departure Time of Disposition: 17:16 Disposition: Home, Self-Care 01 Clinical Impression: Near syncope Migraine headache Qualifiers: Migraine type: without aura Status migrainosus presence: without status migrainosus Intractability: not intractable Qualified Code(s): G43.009 - Migraine without aura, not intractable, without status migrainosus - Discharge Information Instructions: Near-Syncope, [id number] Referrals: Roman Metzger MD [Primary Care Provider] - Forms: ED Department Discharge Care Plan Goals: Rest, fluids, continue your regular medications and use tramadol as needed for headache suppression or other pain. Consider rechecking in 24 to 48 hours if not improving satisfactorily. Sepsis Event Note (ED) - Evaluation Sepsis Screening Result: No Definite Risk - Focused Exam Vital Signs: Vital Signs Temp Pulse Resp BP Pulse Ox 02/11/21 15:34 97.8 F 87 18 184/126 H 97 - My Orders Last 24 Hours: My Active Orders 02/11/21 15:57 EKG 12 Lead [EK] Routine 02/11/21 16:16 CORONAVIRUS COVID-19 TANESHA [MOLEC] Stat - Assessment/Plan Last 24 Hours: My Active Orders 02/11/21 15:57 EKG 12 Lead [EK] Routine 02/11/21 16:16 CORONAVIRUS COVID-19 TANESHA [MOLEC] Stat
--- NOTE | 2021-02-11 16:46 | CRLCT ---
For Patients: As a result of the Century Cures Act, medical imaging exams and procedure reports are released immediately into your electronic medical record. You may view this report before your referring provider. If you have questions, please contact your health care provider. INDICATION: Change in mental status, syncope TECHNIQUE: CT head without contrast. COMPARISON: 07/08/2019 FINDINGS: CSF spaces: Within normal limits for age. Brain parenchyma: The norton-white differentiation is normal. No sign of mass, hemorrhage, or midline shift. Skull base and calvarium: The visualized paranasal sinuses and mastoid air cells demonstrate no acute or significant findings. The visualized orbits are grossly unremarkable. No skull fractures. IMPRESSION: Unremarkable noncontrast head CT. Dictated by Asad Pearson MD @ 02/11/2021 4:44:06 PM Please note that all CT scans at this facility use dose modulation, iterative reconstruction, and/or weight-based dosing when appropriate to reduce radiation dose to as low as reasonably achievable. Dictated by: Asad Pearson MD @ 02/11/2021 16:44:14 (Electronically Signed)
[2021-02-11 17:16] VITALS: BP 166/106; PULSE 80
== END 2021-02-11 17:16 | disposition home or self-care (01) ==
LOC: JP.ED 15:29
DX: G43.009 Migraine without aura, not intractable, without status migrainosus (principal); R55 Syncope and collapse; R79.89 Other specified abnormal findings of blood chemistry; I25.10 Atherosclerotic heart disease of native coronary artery without angina pectoris; I10 Essential (primary) hypertension; Z88.6 Allergy status to analgesic agent; Z91.013 Allergy to seafood; Z91.018 Allergy to other foods; Z91.030 Bee allergy status; Z91.041 Radiographic dye allergy status; Z88.8 Allergy status to other drugs, medicaments and biological substances; Z79.899 Other long term (current) drug therapy
CPT/HCPCS: 36415; 70450; 80053; 84484; 85025; 93005; 99285; U0002

== ENCOUNTER 2021-11-01 12:08 | Emergency (ER) | payer MEDICARE, MEDICAID ==
[2021-11-01] MEDS ORDERED: HYDROmorphone 0.5 MG/0.5 ML Syringe IVPUSH ONE (12:45)
[2021-11-01] MEDS ORDERED: Sodium Chloride 0.9% 500 ML IV ONE (12:45)
[2021-11-01] MEDS ORDERED: Ketorolac 30 MG/ML SDV IVPUSH ONE (12:45)
[2021-11-01 13:32] LABS: TROPONIN I HIGH SENSITIVITY 306.2 pg/mL (<=60.3)
[2021-11-01 13:40] VITALS: BP 150/100; PULSE 88
== END 2021-11-01 15:03 | disposition home or self-care (01) ==
LOC: JP.ED 12:08
DX: U07.1 COVID-19 (principal); R07.89 Other chest pain; R51.9 Headache, unspecified; I25.10 Atherosclerotic heart disease of native coronary artery without angina pectoris; I10 Essential (primary) hypertension; Z91.030 Bee allergy status; Z91.041 Radiographic dye allergy status; Z88.8 Allergy status to other drugs, medicaments and biological substances; Z91.013 Allergy to seafood; Z91.018 Allergy to other foods; Z79.899 Other long term (current) drug therapy
CPT/HCPCS: 36415; 71045; 80048; 84484; 85025; 93005; 96374; 96375; 99284; J1170; J1885; J7030

== ENCOUNTER 2021-12-03 11:09 | Emergency (ER) | payer MEDICARE, MEDICAID ==
[2021-12-03 11:22] VITALS: BP 134/83; PULSE 90
== END 2021-12-03 12:57 | disposition home or self-care (01) ==
LOC: JP.ED 11:09
DX: I48.91 Unspecified atrial fibrillation (principal); I10 Essential (primary) hypertension; I25.10 Atherosclerotic heart disease of native coronary artery without angina pectoris; Z91.030 Bee allergy status; Z91.041 Radiographic dye allergy status; Z91.013 Allergy to seafood; Z91.018 Allergy to other foods; Z88.8 Allergy status to other drugs, medicaments and biological substances; Z79.899 Other long term (current) drug therapy
CPT/HCPCS: 36415; 80048; 83735; 84443; 99284

== ENCOUNTER 2022-01-26 14:41 | Emergency (ER) | payer MEDICARE, MEDICAID ==
[2022-01-26 16:09] VITALS: BP 150/93
[2022-01-26 16:13] VITALS: PULSE 83
== END 2022-01-26 16:13 | disposition home or self-care (01) ==
LOC: JP.ED 14:41
DX: R21 Rash and other nonspecific skin eruption (principal); I25.10 Atherosclerotic heart disease of native coronary artery without angina pectoris; I10 Essential (primary) hypertension; Z91.030 Bee allergy status; Z91.041 Radiographic dye allergy status; Z91.013 Allergy to seafood; Z88.8 Allergy status to other drugs, medicaments and biological substances; Z91.018 Allergy to other foods; Z79.899 Other long term (current) drug therapy; Z86.16 Personal history of COVID-19; Z79.01 Long term (current) use of anticoagulants
CPT/HCPCS: 99283

== ENCOUNTER 2022-01-28 14:14 | Emergency (ER) | payer MEDICARE, MEDICAID ==
[2022-01-28 14:35] VITALS: BP 150/84; PULSE 86
== END 2022-01-28 15:21 | disposition home or self-care (01) ==
LOC: JP.ED 14:14
DX: R21 Rash and other nonspecific skin eruption (principal); I10 Essential (primary) hypertension; I25.10 Atherosclerotic heart disease of native coronary artery without angina pectoris; Z91.030 Bee allergy status; Z91.041 Radiographic dye allergy status; Z91.013 Allergy to seafood; Z91.018 Allergy to other foods; Z88.8 Allergy status to other drugs, medicaments and biological substances; Z79.01 Long term (current) use of anticoagulants; Z79.899 Other long term (current) drug therapy
CPT/HCPCS: 99283

== ENCOUNTER 2022-07-03 09:30 | Emergency (ER) | payer MEDICARE, MEDICAID ==
[2022-07-03] MEDS ORDERED: Silver Nitrate Applicator Each TOP ONE (09:48)
[2022-07-03 10:41] VITALS: BP 142/86; PULSE 73
== END 2022-07-03 10:40 | disposition home or self-care (01) ==
LOC: JP.ED 09:30
DX: R04.0 Epistaxis (principal); M19.90 Unspecified osteoarthritis, unspecified site; I10 Essential (primary) hypertension; Z91.041 Radiographic dye allergy status; Z91.013 Allergy to seafood; Z88.8 Allergy status to other drugs, medicaments and biological substances; Z91.018 Allergy to other foods; Z91.030 Bee allergy status
CPT/HCPCS: 30901; 99282; 99283

== ENCOUNTER 2022-08-24 18:43 | Emergency (ER) | payer MEDICARE, MEDICAID ==
[2022-08-24] MEDS ORDERED: Aspirin 81 MG Tab.Chew PO ONE (18:48)
[2022-08-24] MEDS ORDERED: Sodium Chloride 0.9% 10 ML Syringe FLUSH PRN (18:49)
[2022-08-24] MEDS ORDERED: Nitroglycerin 0.4 MG Tab.SL ONE (18:57)
[2022-08-24 19:24] LABS: TROPONIN I HIGH SENSITIVITY 313.6 pg/mL (<=60.3)
[2022-08-24] MEDS ORDERED: Nitroglycerin/D5W 25 MG/250 ML BOTTLE IV SCH (19:30)
[2022-08-24] MEDS ORDERED: Metoprolol Tartrate 25 MG Tab PO ONE (19:38)
[2022-08-24] MEDS ORDERED: Sodium Chloride 0.9% 1,000 ML IV SCH (19:45)
[2022-08-24] MEDS ORDERED: Nitroglycerin 0.4 MG Tab.SL SL ONE (19:55)
[2022-08-24] MEDS ORDERED: LORazepam 2 MG/ML SDV IVPUSH ONE (19:56)
[2022-08-24 20:01] VITALS: BP 136/74; PULSE 96
== END 2022-08-24 20:20 ==
LOC: JP.ED 18:43
DX: I21.4 Non-ST elevation (NSTEMI) myocardial infarction (principal); I48.91 Unspecified atrial fibrillation; I25.10 Atherosclerotic heart disease of native coronary artery without angina pectoris; I10 Essential (primary) hypertension; Z91.030 Bee allergy status; Z91.041 Radiographic dye allergy status; Z91.013 Allergy to seafood; Z88.8 Allergy status to other drugs, medicaments and biological substances; Z91.018 Allergy to other foods
CPT/HCPCS: 36415; 80048; 84484; 85025; 85610; 85730; 93005; 96365; 96375; 99285; A9270; J2060; J3490; J7030; 93010

== ENCOUNTER 2022-08-29 16:56 | Emergency (ER) | payer MEDICARE, MEDICAID ==
[2022-08-29] MEDS ORDERED: HYDROmorphone 1 MG/ML Syringe IVPUSH ONE (17:20)
[2022-08-29 17:49] VITALS: BP 131/80; PULSE 61
== END 2022-08-29 18:16 | disposition home or self-care (01) ==
LOC: JP.ED 16:56
DX: G43.909 Migraine, unspecified, not intractable, without status migrainosus (principal); I25.10 Atherosclerotic heart disease of native coronary artery without angina pectoris; I10 Essential (primary) hypertension; I25.2 Old myocardial infarction; Z79.02 Long term (current) use of antithrombotics/antiplatelets; Z91.041 Radiographic dye allergy status; Z91.013 Allergy to seafood; Z91.018 Allergy to other foods; Z88.8 Allergy status to other drugs, medicaments and biological substances; Z79.01 Long term (current) use of anticoagulants; Z86.16 Personal history of COVID-19; Z79.899 Other long term (current) drug therapy
CPT/HCPCS: 96374; 96375; 99283; J1170; J1790

== ENCOUNTER 2022-08-30 17:59 | Emergency (ER) | payer MEDICARE, MEDICAID ==
[2022-08-30 18:31] LABS: ESTIMATED GFR 44 mL/min (>60)
[2022-08-30] MEDS ORDERED: Prochlorperazine 10 MG/2 ML SDV IVPUSH ONE (19:13)
[2022-08-30 20:38] VITALS: BP 143/91; PULSE 72
== END 2022-08-30 21:29 | disposition home or self-care (01) ==
LOC: JP.ED 17:59
DX: G43.909 Migraine, unspecified, not intractable, without status migrainosus (principal); F43.10 Post-traumatic stress disorder, unspecified; R55 Syncope and collapse; I25.118 Atherosclerotic heart disease of native coronary artery with other forms of angina pectoris; I10 Essential (primary) hypertension; I25.2 Old myocardial infarction; Z91.030 Bee allergy status; Z91.041 Radiographic dye allergy status; Z91.013 Allergy to seafood; Z91.018 Allergy to other foods; Z79.01 Long term (current) use of anticoagulants; Z79.02 Long term (current) use of antithrombotics/antiplatelets; Z79.899 Other long term (current) drug therapy; Z86.16 Personal history of COVID-19
CPT/HCPCS: 36415; 70450; 80053; 80307; 83605; 83690; 85025; 85610; 85730; 86140; 93005; 96374; 96375; 99285; J0780; J1790

== ENCOUNTER 2022-11-19 22:37 | Emergency (ER) | payer MEDICARE, MEDICAID ==
[2022-11-19] MEDS ORDERED: Nitroglycerin 0.4 MG Tab.SL SL ONE (22:38)
[2022-11-19] MEDS ORDERED: Sodium Chloride 0.9% 10 ML Syringe FLUSH PRN (22:39)
[2022-11-19] MEDS ORDERED: Prochlorperazine 10 MG/2 ML SDV IVPUSH ONE ×2 (22:40→22:49)
[2022-11-19 22:45] LABS: BASOPHILS ABSOLUTE AUTO 0.09 K/uL (0.00-0.10); BASOPHILS PERCENT AUTO 0.8 % (0.1-1.3); EOSINOPHILS ABSOLUTE AUTO 0.43 K/uL (0.00-0.40); EOSINOPHILS PERCENT AUTO 4.1 % (0.0-5.4); HEMOGLOBIN 14.4 g/dL (12.9-16.9); IMMATURE GRAN PERCENT AUTO 0.2 % (0.0-0.7); LYMPHOCYTES ABSOLUTE AUTO 3.65 K/uL (0.8-3.3); LYMPHOCYTES PERCENT AUTO 34.4 % (11.4-47.7); MEAN CORPUSCULAR HEMOGLOBIN 29.6 pg (31.6-35.5); MEAN CORPUSCULAR HGB CONC 35.1 g/dL (31.6-35.5); MEAN CORPUSCULAR VOLUME 84.4 fL (81.4-99.0); MONOCYTES ABSOLUTE AUTO 1.01 K/uL (0.20-0.90); MONOCYTES PERCENT AUTO 9.5 % (3.3-12.6); PLATELET COUNT,PLT 272 K/uL (130-375); RED BLOOD CELL COUNT 4.86 M/uL (4.14-5.76); WHITE BLOOD CELL COUNT,WBC 10.6 K/uL (3.2-11.0)
[2022-11-19 22:49] LABS: IMMATURE GRAN ABSOLUTE AUTO 0.02 K/uL (0.00-0.23)
[2022-11-19 22:57] LABS: PROTHROMBIN TIME 10.6 sec (9.2-10.6); PTT,PARTIAL THROMBOPLSTIN TIME 27.6 sec (21.8-27.3)
[2022-11-19 23:01] LABS: CALCIUM 9.4 mg/dL (8.5-10.1); CREATININE 1.6 mg/dL (0.8-1.3); EST CRCL DRUG DOSING (CG) 49.17 mL/min; POTASSIUM,K 3.2 mmol/L (3.6-5.2)
[2022-11-19 23:02] LABS: ANION GAP 12.2 mmol/L (5.0-14.0); TROPONIN I HIGH SENSITIVITY 220.6 pg/mL (<=60.3)
[2022-11-19] MEDS ORDERED: Nitroglycerin/D5W 25 MG/250 ML BOTTLE IV SCH (23:15)
[2022-11-19] MEDS ORDERED: Heparin Sodium/D5W 25,000 UNITS/500 ML BAG IV SCH (23:45)
[2022-11-19] MEDS ORDERED: Sodium Chloride 0.9% 1,000 ML IV SCH (23:45)
[2022-11-19] MEDS ORDERED: Heparin Sodium 5,000 Units/ML Vial IVPUSH ONE (23:49)
[2022-11-19] MEDS ORDERED: Metoclopramide 10 MG/2 ML SDV IVPUSH ONE (23:56)
[2022-11-20] MEDS ORDERED: Clopidogrel 75 MG Tab PO ONE (06:34)
[2022-11-20] MEDS ORDERED: Metoprolol Succinate 50 MG Tab.ER PO ONE (06:38)
[2022-11-20] MEDS ORDERED: Rosuvastatin 10 MG Tab PO ONE ×2 (06:39→08:15)
[2022-11-20 07:55] VITALS: BP 144/86
[2022-11-20] MEDS ORDERED: LORazepam 2 MG/ML SDV IVPUSH ONE (07:59)
[2022-11-20 08:08] VITALS: PULSE 71
== END 2022-11-20 10:17 ==
LOC: JP.ED 22:37
DX: I25.118 Atherosclerotic heart disease of native coronary artery with other forms of angina pectoris (principal); I42.9 Cardiomyopathy, unspecified; I48.0 Paroxysmal atrial fibrillation; I25.10 Atherosclerotic heart disease of native coronary artery without angina pectoris; I10 Essential (primary) hypertension; I25.2 Old myocardial infarction; Z91.030 Bee allergy status; Z91.041 Radiographic dye allergy status; Z91.013 Allergy to seafood; Z91.018 Allergy to other foods; Z79.01 Long term (current) use of anticoagulants; Z95.5 Presence of coronary angioplasty implant and graft; Z86.16 Personal history of COVID-19; Z20.822 Contact with and (suspected) exposure to COVID-19
CPT/HCPCS: 36415; 71045; 80048; 84484; 85025; 85610; 85730; 93005; 96365; 96366; 96368; 96375; 99285; A9270; J0780; J1644; J2060; J2765; J3490; J7030; U0002

== ENCOUNTER 2022-11-23 13:15 | Emergency (ER) | payer MEDICARE, MEDICAID ==
[2022-11-23] MEDS ORDERED: Ondansetron 4 MG Tab.DIS PO ONE (16:14)
[2022-11-23 17:01] VITALS: BP 131/79; PULSE 96
== END 2022-11-23 17:16 | disposition home or self-care (01) ==
LOC: JP.ED 13:15
DX: R42 Dizziness and giddiness (principal); R11.2 Nausea with vomiting, unspecified; I25.10 Atherosclerotic heart disease of native coronary artery without angina pectoris; I10 Essential (primary) hypertension; I25.2 Old myocardial infarction; Z86.16 Personal history of COVID-19; Z79.01 Long term (current) use of anticoagulants; Z79.899 Other long term (current) drug therapy; Z79.02 Long term (current) use of antithrombotics/antiplatelets; Z91.030 Bee allergy status; Z88.8 Allergy status to other drugs, medicaments and biological substances; Z91.013 Allergy to seafood; Z91.041 Radiographic dye allergy status; Z91.018 Allergy to other foods
CPT/HCPCS: 99283; Q0162

== ENCOUNTER 2023-02-16 04:53 | Emergency (ER) | payer MEDICAID, MEDICARE ==
[2023-02-16] MEDS ORDERED: Nitroglycerin 0.4 MG Tab.SL SL PRN (05:06)
[2023-02-16] MEDS ORDERED: Aspirin 81 MG Tab.Chew PO ONE (05:06)
[2023-02-16] MEDS ORDERED: Sodium Chloride 0.9% 10 ML Syringe FLUSH PRN (05:06)
[2023-02-16 05:12] LABS: BASOPHILS PERCENT AUTO 0.7 % (0.1-1.3); EOSINOPHILS ABSOLUTE AUTO 0.46 K/uL (0.00-0.40); EOSINOPHILS PERCENT AUTO 3.4 % (0.0-5.4); HEMATOCRIT 39.6 % (38.4-49.7); HEMOGLOBIN 13.7 g/dL (12.9-16.9); IMMATURE GRAN ABSOLUTE AUTO 0.05 K/uL (0.00-0.23); IMMATURE GRAN PERCENT AUTO 0.4 % (0.0-0.7); LYMPHOCYTES ABSOLUTE AUTO 2.57 K/uL (0.8-3.3); MEAN CORPUSCULAR HEMOGLOBIN 29.7 pg (31.6-35.5); MEAN CORPUSCULAR HGB CONC 34.6 g/dL (31.6-35.5); MEAN CORPUSCULAR VOLUME 85.9 fL (81.4-99.0); MONOCYTES ABSOLUTE AUTO 0.76 K/uL (0.20-0.90); MONOCYTES PERCENT AUTO 5.6 % (3.3-12.6); NEUTROPHILS PERCENT AUTO 70.9 % (40.0-78.1); PLATELET COUNT,PLT 345 K/uL (130-375); RED BLOOD CELL COUNT 4.61 M/uL (4.14-5.76); WHITE BLOOD CELL COUNT,WBC 13.5 K/uL (3.2-11.0)
[2023-02-16] MEDS ORDERED: Sodium Chloride 0.9% 1,000 ML IV SCH (05:15)
[2023-02-16] MEDS ORDERED: Nitroglycerin/D5W 25 MG/250 ML BOTTLE IV SCH (05:15)
[2023-02-16 05:30] LABS: A/G RATIO 1.1 (1.2-2.2); ALBUMIN 3.7 g/dL (3.4-5.0); ANION GAP 12.7 mmol/L (5.0-14.0); BLOOD UREA NITROGEN,BUN 18 mg/dL (7-18); CALCIUM 9.2 mg/dL (8.5-10.1); CARBON DIOXIDE,CO2 25 mmol/L (21-32); CHLORIDE,CL 103 mmol/L (100-108); CREATININE 1.6 mg/dL (0.8-1.3); EST CRCL DRUG DOSING (CG) 48.19 mL/min; ESTIMATED GFR 47 mL/min (>60); GLUCOSE RANDOM 120 mg/dL (74-106); POTASSIUM,K 3.7 mmol/L (3.6-5.2); PROTEIN TOTAL,TP 7.2 g/dL (6.4-8.2); SODIUM,NA 137 mmol/L (140-148)
[2023-02-16 05:31] LABS: ALANINE AMINOTRANSFERASE,ALT 83 U/L (12-78); ALKALINE PHOSPHATASE 211 U/L (46-116); ASPARTATE AMNIOTRANSFERASE,AST 30 U/L (15-37); BILIRUBIN TOTAL 0.3 mg/dL (0.2-1.0); TROPONIN I HIGH SENSITIVITY 197.6 pg/mL (<=60.3)
[2023-02-16] MEDS ORDERED: Ondansetron 4 MG/2 ML SDV ONE (05:32)
[2023-02-16] MEDS ORDERED: Morphine 2 MG/ML SYRINGE IVPUSH ONE (05:47)
[2023-02-16] MEDS ORDERED: Norepinephrine Bit/D5W Premix 0 ML ONE (05:51)
[2023-02-16] MEDS ORDERED: Norepinephrine Bit/D5W Premix 4 MG in Premix Bag 1 BAG IV SCH (06:00)
[2023-02-16 06:06] VITALS: BP 100/56; PULSE 100
[2023-02-16] MEDS ORDERED: Ondansetron 4 MG/2 ML SDV IVPUSH ONE (06:06)
[2023-02-16] MEDS ORDERED: Sodium Chloride 0.9% 1,000 ML IV ONE (06:15)
== END 2023-02-16 06:06 ==
LOC: JP.ED 04:53
DX: I21.4 Non-ST elevation (NSTEMI) myocardial infarction (principal); R57.0 Cardiogenic shock; I42.9 Cardiomyopathy, unspecified; I25.10 Atherosclerotic heart disease of native coronary artery without angina pectoris; Z95.810 Presence of automatic (implantable) cardiac defibrillator; Z86.16 Personal history of COVID-19; Z79.82 Long term (current) use of aspirin; Z79.01 Long term (current) use of anticoagulants; Z79.899 Other long term (current) drug therapy; Z91.030 Bee allergy status; Z91.041 Radiographic dye allergy status; Z91.013 Allergy to seafood; Z88.8 Allergy status to other drugs, medicaments and biological substances; Z91.018 Allergy to other foods; Z20.822 Contact with and (suspected) exposure to COVID-19
CPT/HCPCS: 36415; 71045; 80053; 83735; 83880; 84484; 85025; 86140; 93005; 93010; 96361; 96374; 96375; 99285; A9270; J2270; J2405; J3490; J7030; U0002

== ENCOUNTER 2023-03-05 20:20 | Emergency (ER) | payer MEDICARE ==
[2023-03-05 21:17] VITALS: BP 120/74; PULSE 75
[2023-03-05] MEDS ORDERED: Tranexamic Acid 1,000 MG/10 ML Vial TOP ONE (21:32)
== END 2023-03-05 21:59 | disposition home or self-care (01) ==
LOC: JP.ED 20:20
DX: R04.0 Epistaxis (principal); I25.10 Atherosclerotic heart disease of native coronary artery without angina pectoris; I10 Essential (primary) hypertension; I25.2 Old myocardial infarction; Z86.16 Personal history of COVID-19; Z88.8 Allergy status to other drugs, medicaments and biological substances; Z91.030 Bee allergy status; Z91.013 Allergy to seafood; Z91.041 Radiographic dye allergy status; Z91.018 Allergy to other foods; Z79.01 Long term (current) use of anticoagulants; Z79.82 Long term (current) use of aspirin; Z79.899 Other long term (current) drug therapy
CPT/HCPCS: 30903; 99283-25

== ENCOUNTER 2023-03-06 04:46 | Emergency (ER) | payer MEDICARE ==
[2023-03-06] MEDS ORDERED: HYDROmorphone 0.5 MG/0.5 ML Syringe IVPUSH ONE (04:59)
[2023-03-06 05:02] VITALS: BP 133/77; PULSE 66
[2023-03-06] MEDS ORDERED: Ondansetron 4 MG/2 ML SDV IVPUSH ONE (05:02)
== END 2023-03-06 05:52 | disposition home or self-care (01) ==
LOC: JP.ED 04:46
DX: M94.0 Chondrocostal junction syndrome [Tietze] (principal); I25.10 Atherosclerotic heart disease of native coronary artery without angina pectoris; I10 Essential (primary) hypertension; I25.2 Old myocardial infarction; M19.90 Unspecified osteoarthritis, unspecified site; Z79.01 Long term (current) use of anticoagulants; Z86.16 Personal history of COVID-19; Z91.013 Allergy to seafood; Z88.8 Allergy status to other drugs, medicaments and biological substances; Z91.018 Allergy to other foods; Z91.030 Bee allergy status; Z91.041 Radiographic dye allergy status; Z79.82 Long term (current) use of aspirin; Z79.899 Other long term (current) drug therapy
CPT/HCPCS: 71045; 93005; 96374; 96375; 99285; J1170; J2405

== ENCOUNTER 2023-03-07 06:40 | Emergency (ER) | payer MEDICARE ==
[2023-03-07 06:58] VITALS: BP 97/54; PULSE 71
[2023-03-07] MEDS ORDERED: HYDROmorphone 1 MG/ML Syringe IM ONE (07:05)
== END 2023-03-07 07:55 | disposition home or self-care (01) ==
LOC: JP.ED 06:40
DX: R04.0 Epistaxis (principal); I25.10 Atherosclerotic heart disease of native coronary artery without angina pectoris; I10 Essential (primary) hypertension; Z86.16 Personal history of COVID-19; Z91.030 Bee allergy status; Z91.041 Radiographic dye allergy status; Z91.013 Allergy to seafood; Z91.018 Allergy to other foods; Z88.8 Allergy status to other drugs, medicaments and biological substances; Z79.01 Long term (current) use of anticoagulants; Z79.82 Long term (current) use of aspirin; Z79.899 Other long term (current) drug therapy
CPT/HCPCS: 96372; 99283; J1170

== ENCOUNTER 2023-03-07 21:15 | Emergency (ER) | payer MEDICARE ==
[2023-03-07 21:23] VITALS: BP 147/81; PULSE 107
[2023-03-07] MEDS ORDERED: fentaNYL 100 MCG/2 ML SDV IVPUSH ONE (21:45)
[2023-03-07] MEDS ORDERED: methylPREDNISolone Sodium Succinate 125 MG/2 ML SDV IVPUSH ONE (21:45)
[2023-03-07] MEDS ORDERED: Ketorolac 30 MG/ML SDV IVPUSH ONE (21:45)
[2023-03-07] MEDS ORDERED: Ketorolac 15 MG/ML SDV IVPUSH ONE (22:07)
== END 2023-03-07 23:40 | disposition home or self-care (01) ==
LOC: JP.ED 21:15
DX: M94.0 Chondrocostal junction syndrome [Tietze] (principal); I25.10 Atherosclerotic heart disease of native coronary artery without angina pectoris; I10 Essential (primary) hypertension; I25.2 Old myocardial infarction; M19.90 Unspecified osteoarthritis, unspecified site; Z95.5 Presence of coronary angioplasty implant and graft; Z86.16 Personal history of COVID-19; Z79.01 Long term (current) use of anticoagulants; Z79.899 Other long term (current) drug therapy; Z79.82 Long term (current) use of aspirin; Z91.018 Allergy to other foods; Z88.8 Allergy status to other drugs, medicaments and biological substances; Z91.030 Bee allergy status; Z91.041 Radiographic dye allergy status; Z91.013 Allergy to seafood
CPT/HCPCS: 71046; 96374; 96375; 99284; J1885; J2930; J3010

== ENCOUNTER 2023-07-18 14:59 | Emergency (ER) | payer MEDICARE ==
[2023-07-18 17:02] VITALS: BP 152/96; PULSE 85
== END 2023-07-18 17:09 | disposition home or self-care (01) ==
LOC: JP.ED 14:59
DX: R04.0 Epistaxis (principal); I10 Essential (primary) hypertension; I25.2 Old myocardial infarction; I25.10 Atherosclerotic heart disease of native coronary artery without angina pectoris; Z79.899 Other long term (current) drug therapy; Z91.030 Bee allergy status; Z91.041 Radiographic dye allergy status; Z91.013 Allergy to seafood; Z88.8 Allergy status to other drugs, medicaments and biological substances
CPT/HCPCS: 36415; 85018; 99283

== ENCOUNTER 2023-08-09 22:26 | Emergency (ER) | payer MEDICARE ==
[2023-08-09 22:41] VITALS: BP 161/78; PULSE 83
== END 2023-08-09 23:50 | disposition home or self-care (01) ==
LOC: JP.ED 22:26
DX: L08.9 Local infection of the skin and subcutaneous tissue, unspecified (principal); I25.10 Atherosclerotic heart disease of native coronary artery without angina pectoris; I10 Essential (primary) hypertension; I25.2 Old myocardial infarction; Z88.4 Allergy status to anesthetic agent; Z91.041 Radiographic dye allergy status; Z91.030 Bee allergy status; Z91.013 Allergy to seafood; Z88.8 Allergy status to other drugs, medicaments and biological substances; Z91.018 Allergy to other foods; Z79.899 Other long term (current) drug therapy; Z86.19 Personal history of other infectious and parasitic diseases; Z86.16 Personal history of COVID-19; Z95.5 Presence of coronary angioplasty implant and graft; Z79.01 Long term (current) use of anticoagulants
CPT/HCPCS: 99283

== ENCOUNTER 2023-10-03 19:09 | Emergency (ER) | payer MEDICARE ==
[2023-10-03 20:33] LABS: CORONAVIRUS COVID-19 NAA NEGATIVE (NEGATIVE); INFLUENZA A NAA NEGATIVE (NEGATIVE); INFLUENZA B NAA NEGATIVE (NEGATIVE); RESPIRATORY SYNCYTIAL VIR NAA NEGATIVE (NEGATIVE)
[2023-10-03 21:07] VITALS: BP 161/83; PULSE 100
== END 2023-10-03 21:07 | disposition home or self-care (01) ==
LOC: JP.ED 19:09
DX: J40 Bronchitis, not specified as acute or chronic (principal); R09.1 Pleurisy; I10 Essential (primary) hypertension; I25.10 Atherosclerotic heart disease of native coronary artery without angina pectoris; I25.2 Old myocardial infarction; Z86.16 Personal history of COVID-19; Z95.5 Presence of coronary angioplasty implant and graft; Z79.899 Other long term (current) drug therapy; Z79.01 Long term (current) use of anticoagulants; Z79.82 Long term (current) use of aspirin; Z91.018 Allergy to other foods; Z88.8 Allergy status to other drugs, medicaments and biological substances; Z91.013 Allergy to seafood; Z91.041 Radiographic dye allergy status; Z91.030 Bee allergy status
CPT/HCPCS: 0241U; 71046; 93005; 99284

== ENCOUNTER 2023-10-05 12:06 | Emergency (ER) | payer MEDICARE ==
[2023-10-05 12:28] LABS: BASOPHILS ABSOLUTE AUTO 0.03 K/uL (0.00-0.10); BASOPHILS PERCENT AUTO 0.4 % (0.1-1.3); EOSINOPHILS ABSOLUTE AUTO 0.35 K/uL (0.00-0.40); EOSINOPHILS PERCENT AUTO 5.1 % (0.0-5.4); HEMATOCRIT 43.8 % (38.4-49.7); HEMOGLOBIN 15.3 g/dL (12.9-16.9); IMMATURE GRAN PERCENT AUTO 0.1 % (0.0-0.7); LYMPHOCYTES ABSOLUTE AUTO 1.96 K/uL (0.8-3.3); LYMPHOCYTES PERCENT AUTO 28.3 % (11.4-47.7); MEAN CORPUSCULAR HEMOGLOBIN 29.3 pg (31.6-35.5); MEAN CORPUSCULAR HGB CONC 34.9 g/dL (31.6-35.5); MEAN CORPUSCULAR VOLUME 83.7 fL (81.4-99.0); MONOCYTES ABSOLUTE AUTO 0.67 K/uL (0.20-0.90); MONOCYTES PERCENT AUTO 9.7 % (3.3-12.6); NEUTROPHILS ABSOLUTE AUTO 3.91 K/uL (1.0-7.6); NEUTROPHILS PERCENT AUTO 56.4 % (40.0-78.1); PLATELET COUNT,PLT 224 K/uL (130-375); RED BLOOD CELL COUNT 5.23 M/uL (4.14-5.76); WHITE BLOOD CELL COUNT,WBC 6.9 K/uL (3.2-11.0)
[2023-10-05 12:29] LABS: IMMATURE GRAN ABSOLUTE AUTO 0.01 K/uL (0.00-0.23)
[2023-10-05 12:48] LABS: INR 1.1; PROTHROMBIN TIME 10.9 sec (9.2-10.6); PTT,PARTIAL THROMBOPLSTIN TIME 33.4 sec (21.8-27.3)
[2023-10-05 12:51] LABS: A/G RATIO 0.8 (1.2-2.2); ALANINE AMINOTRANSFERASE,ALT 42 U/L (12-78); ALBUMIN 3.5 g/dL (3.4-5.0); ALKALINE PHOSPHATASE 145 U/L (46-116); ASPARTATE AMNIOTRANSFERASE,AST 33 U/L (15-37); BILIRUBIN TOTAL 0.3 mg/dL (0.2-1.0); BLOOD UREA NITROGEN,BUN 22 mg/dL (7-18); CALCIUM 9.8 mg/dL (8.5-10.1); CARBON DIOXIDE,CO2 25 mmol/L (21-32); CHLORIDE,CL 101 mmol/L (100-108); CREATININE 1.6 mg/dL (0.8-1.3); EST CRCL DRUG DOSING (CG) 44.19 mL/min; ESTIMATED GFR 47 mL/min (>60); GLUCOSE RANDOM 155 mg/dL (74-106); POTASSIUM,K 3.2 mmol/L (3.6-5.2); PROTEIN TOTAL,TP 7.7 g/dL (6.4-8.2); SODIUM,NA 135 mmol/L (140-148)
[2023-10-05 12:52] LABS: ANION GAP 12.2 mmol/L (5.0-14.0); TROPONIN I HIGH SENSITIVITY 237.9 pg/mL (<=60.3)
[2023-10-05] MEDS: LORazepam 2 MG/ML SDV IVPUSH ONE ×2 (13:21→16:32)
[2023-10-05] MEDS: Nitroglycerin 0.4 MG Tab.SL SL PRN (13:26)
[2023-10-05] MEDS: Aspirin 81 MG Tab.Chew PO ONE (13:26)
[2023-10-05] MEDS: Sodium Chloride 0.9% 10 ML Syringe FLUSH PRN (13:27)
[2023-10-05] MEDS: Ondansetron 4 MG/2 ML SDV IVPUSH ONE (13:49)
[2023-10-05] MEDS: HYDROmorphone 1 MG/ML Syringe IVPUSH ONE (13:53)
[2023-10-05 16:45] VITALS: BP 91/52; PULSE 83
== END 2023-10-05 16:35 ==
LOC: JP.ED 12:06
DX: I21.4 Non-ST elevation (NSTEMI) myocardial infarction (principal); R55 Syncope and collapse; I25.10 Atherosclerotic heart disease of native coronary artery without angina pectoris; I10 Essential (primary) hypertension; I25.2 Old myocardial infarction; Z91.030 Bee allergy status; Z91.041 Radiographic dye allergy status; Z88.8 Allergy status to other drugs, medicaments and biological substances; Z91.013 Allergy to seafood; Z91.018 Allergy to other foods; Z79.01 Long term (current) use of anticoagulants; Z79.899 Other long term (current) drug therapy; Z95.5 Presence of coronary angioplasty implant and graft; Z86.16 Personal history of COVID-19; Z86.19 Personal history of other infectious and parasitic diseases
CPT/HCPCS: 36415; 70450; 80053; 84484; 85025; 85610; 85730; 93005; 96374; 96375; 99285; A9270; J1170; J2060; J2405; J3490

== ENCOUNTER 2023-12-02 19:13 | Emergency (ER) | payer MEDICARE ==
[2023-12-02] MEDS: LORazepam 2 MG/ML SDV IVPUSH ONE (20:15)
[2023-12-02] MEDS: fentaNYL 100 MCG/2 ML SDV IM ONE (20:17)
[2023-12-02] MEDS: Sodium Chloride 0.9% 10 ML Syringe FLUSH PRN (20:28)
[2023-12-02] MEDS: LORazepam 2 MG/ML SDV IM ONE (20:29)
[2023-12-02 21:30] VITALS: BP 169/94; PULSE 94
== END 2023-12-02 21:15 | disposition home or self-care (01) ==
LOC: JP.ED 19:13
DX: R04.0 Epistaxis (principal); I10 Essential (primary) hypertension; I25.10 Atherosclerotic heart disease of native coronary artery without angina pectoris; I25.2 Old myocardial infarction; Z86.16 Personal history of COVID-19; Z95.5 Presence of coronary angioplasty implant and graft; Z79.82 Long term (current) use of aspirin; Z79.01 Long term (current) use of anticoagulants; Z79.899 Other long term (current) drug therapy; Z91.041 Radiographic dye allergy status; Z91.030 Bee allergy status; Z91.013 Allergy to seafood; Z91.048 Other nonmedicinal substance allergy status; Z91.018 Allergy to other foods; Z88.8 Allergy status to other drugs, medicaments and biological substances
CPT/HCPCS: 36415; 85018; 96372; 96374; 99283-25; J2060; J3010; J3490

== ENCOUNTER 2023-12-02 22:39 | Emergency (ER) | payer MEDICARE ==
[2023-12-02] MEDS: Tranexamic Acid 1,000 MG/10 ML Vial IVPUSH ONE (23:07)
[2023-12-02] MEDS: HYDROmorphone 1 MG/ML Syringe IVPUSH ONE (23:09)
[2023-12-02] MEDS: Ondansetron 4 MG/2 ML SDV IVPUSH ONE (23:09)
[2023-12-02] MEDS: Sodium Chloride 0.9% 10 ML Syringe FLUSH PRN (23:10)
[2023-12-03] MEDS ORDERED: Ketorolac 30 MG/ML SDV IM ONE (00:58)
[2023-12-03] MEDS: Ketorolac 30 MG/ML SDV IVPUSH ONE (01:16)
[2023-12-03 01:31] VITALS: BP 171/80; PULSE 89
== END 2023-12-03 01:25 | disposition home or self-care (01) ==
LOC: JP.ED 22:39
DX: R04.0 Epistaxis (principal); I10 Essential (primary) hypertension; I25.10 Atherosclerotic heart disease of native coronary artery without angina pectoris; I25.2 Old myocardial infarction; Z95.5 Presence of coronary angioplasty implant and graft; Z86.16 Personal history of COVID-19; Z79.01 Long term (current) use of anticoagulants; Z79.899 Other long term (current) drug therapy; Z91.018 Allergy to other foods; Z91.013 Allergy to seafood; Z91.048 Other nonmedicinal substance allergy status; Z91.030 Bee allergy status; Z88.8 Allergy status to other drugs, medicaments and biological substances; Z79.82 Long term (current) use of aspirin; Z91.041 Radiographic dye allergy status
CPT/HCPCS: 36415; 85018; 96372; 96374; 96375; 99283; 99283-25; J1170; J1885; J2060; J2405; J3010; J3490

== ENCOUNTER 2023-12-03 17:59 | Emergency (ER) | payer MEDICARE ==
[2023-12-03 18:29] LABS: BASOPHILS ABSOLUTE AUTO 0.07 K/uL (0.00-0.10); BASOPHILS PERCENT AUTO 0.8 % (0.1-1.3); EOSINOPHILS ABSOLUTE AUTO 0.32 K/uL (0.00-0.40); EOSINOPHILS PERCENT AUTO 3.5 % (0.0-5.4); HEMATOCRIT 36.1 % (38.4-49.7); HEMOGLOBIN 12.5 g/dL (12.9-16.9); IMMATURE GRAN ABSOLUTE AUTO 0.03 K/uL (0.00-0.23); IMMATURE GRAN PERCENT AUTO 0.3 % (0.0-0.7); LYMPHOCYTES ABSOLUTE AUTO 1.83 K/uL (0.8-3.3); LYMPHOCYTES PERCENT AUTO 19.8 % (11.4-47.7); MEAN CORPUSCULAR HEMOGLOBIN 28.8 pg (31.6-35.5); MEAN CORPUSCULAR HGB CONC 34.6 g/dL (31.6-35.5); MEAN CORPUSCULAR VOLUME 83.2 fL (81.4-99.0); MONOCYTES ABSOLUTE AUTO 0.75 K/uL (0.20-0.90); MONOCYTES PERCENT AUTO 8.1 % (3.3-12.6); NEUTROPHILS ABSOLUTE AUTO 6.22 K/uL (1.0-7.6); NEUTROPHILS PERCENT AUTO 67.5 % (40.0-78.1); PLATELET COUNT,PLT 245 K/uL (130-375); RED BLOOD CELL COUNT 4.34 M/uL (4.14-5.76); WHITE BLOOD CELL COUNT,WBC 9.2 K/uL (3.2-11.0)
[2023-12-03] MEDS: HYDROmorphone 0.5 MG/0.5 ML Syringe IM ONE (18:37)
[2023-12-03 18:50] LABS: A/G RATIO 1.1 (1.2-2.2); ALANINE AMINOTRANSFERASE,ALT 26 U/L (12-78); ALBUMIN 3.6 g/dL (3.4-5.0); ALKALINE PHOSPHATASE 111 U/L (46-116); ASPARTATE AMNIOTRANSFERASE,AST 20 U/L (15-37); BILIRUBIN TOTAL 0.2 mg/dL (0.2-1.0); BLOOD UREA NITROGEN,BUN 20 mg/dL (7-18); CALCIUM 9.6 mg/dL (8.5-10.1); CARBON DIOXIDE,CO2 27 mmol/L (21-32); CHLORIDE,CL 105 mmol/L (100-108); CREATININE 1.6 mg/dL (0.8-1.3); EST CRCL DRUG DOSING (CG) 48.19 mL/min; ESTIMATED GFR 47 mL/min (>60); GLUCOSE RANDOM 80 mg/dL (74-106); POTASSIUM,K 3.9 mmol/L (3.6-5.2); PROTEIN TOTAL,TP 6.8 g/dL (6.4-8.2); SODIUM,NA 138 mmol/L (140-148)
[2023-12-03 18:52] LABS: ANION GAP 9.9 mmol/L (5.0-14.0)
[2023-12-03] MEDS: Ondansetron 4 MG Tab.DIS PO ONE (19:05)
[2023-12-03] MEDS: Sodium Chloride 0.9% 1,000 ML IV SCH (19:06)
[2023-12-03 19:45] VITALS: BP 163/75; PULSE 80
[2023-12-03] MEDS: HYDROmorphone 1 MG/ML Syringe IVPUSH ONE (20:13)
== END 2023-12-03 20:25 | disposition home or self-care (01) ==
LOC: JP.ED 17:59
DX: S00.93XA Contusion of unspecified part of head, initial encounter (principal); R04.0 Epistaxis; I10 Essential (primary) hypertension; I25.810 Atherosclerosis of coronary artery bypass graft(s) without angina pectoris; Z91.030 Bee allergy status; Z91.041 Radiographic dye allergy status; Z91.013 Allergy to seafood; Z91.018 Allergy to other foods; Z88.8 Allergy status to other drugs, medicaments and biological substances; Z79.82 Long term (current) use of aspirin; Z79.899 Other long term (current) drug therapy; Z86.16 Personal history of COVID-19; W19.XXXA Unspecified fall, initial encounter; W22.8XXA Striking against or struck by other objects, initial encounter
CPT/HCPCS: 36415; 70450; 80053; 85025; 96361; 96372; 96374; 99284; J1170; J7030; Q0162

== ENCOUNTER 2023-12-04 12:04 | Emergency (ER) | payer MEDICARE ==
[2023-12-04 12:14] VITALS: BP 126/76; PULSE 57
== END 2023-12-04 13:50 | disposition home or self-care (01) ==
LOC: JP.ED 12:04
DX: R04.0 Epistaxis (principal); I10 Essential (primary) hypertension; I25.10 Atherosclerotic heart disease of native coronary artery without angina pectoris; M19.90 Unspecified osteoarthritis, unspecified site; Z86.16 Personal history of COVID-19; Z79.82 Long term (current) use of aspirin; Z79.899 Other long term (current) drug therapy; Z91.018 Allergy to other foods; Z91.013 Allergy to seafood; Z91.030 Bee allergy status; Z88.8 Allergy status to other drugs, medicaments and biological substances
CPT/HCPCS: 99282

== ENCOUNTER 2024-07-13 11:19 | Emergency (ER) | payer OTHER, MEDICARE ==
[2024-07-13 11:46] VITALS: BP 153/93; PULSE 71
[2024-07-13] MEDS: Lidocaine 1% 20 ML MDV INJECT ONE (11:57)
== END 2024-07-13 12:42 | disposition home or self-care (01) ==
LOC: JP.ED 11:19
DX: S61.215A Laceration without foreign body of left ring finger without damage to nail, initial encounter (principal); I25.10 Atherosclerotic heart disease of native coronary artery without angina pectoris; I10 Essential (primary) hypertension; M19.90 Unspecified osteoarthritis, unspecified site; Z91.018 Allergy to other foods; Z91.030 Bee allergy status; Z88.8 Allergy status to other drugs, medicaments and biological substances; Z91.013 Allergy to seafood; Z91.041 Radiographic dye allergy status; Z79.82 Long term (current) use of aspirin; Z79.899 Other long term (current) drug therapy; Z86.16 Personal history of COVID-19; W23.0XXA Caught, crushed, jammed, or pinched between moving objects, initial encounter; Y99.0 Civilian activity done for income or pay; Y92.89 Other specified places as the place of occurrence of the external cause
CPT/HCPCS: 12002; 99282

== ENCOUNTER 2024-07-15 07:21 | Emergency (ER) | payer OTHER, MEDICARE ==
[2024-07-15 07:45] VITALS: BP 147/90; PULSE 70
== END 2024-07-15 07:52 | disposition home or self-care (01) ==
LOC: JP.ED 07:21
DX: S61.215D Laceration without foreign body of left ring finger without damage to nail, subsequent encounter (principal); I10 Essential (primary) hypertension; M19.90 Unspecified osteoarthritis, unspecified site; I25.10 Atherosclerotic heart disease of native coronary artery without angina pectoris; W45.8XXA Other foreign body or object entering through skin, initial encounter; Y99.0 Civilian activity done for income or pay; Z86.16 Personal history of COVID-19; Z91.030 Bee allergy status; Z91.041 Radiographic dye allergy status; Z91.013 Allergy to seafood; Z79.82 Long term (current) use of aspirin; Z79.899 Other long term (current) drug therapy
CPT/HCPCS: 99282